=== PATIENT | female | born 1950 | race Caucasian/White ===

== ENCOUNTER 2016-03-28 12:13 | Emergency (ER) | payer MEDICARE ==
[2016-03-28 13:47] VITALS: RESP 20
[2016-03-28] MEDS ORDERED: MORPHINE SULFATE 10 MG/ML SYRINGE IM STA (14:38)
--- NOTE | 2016-03-28 14:55 | ED ---
Fall HPI - General Chief Complaint: Fall Stated Complaint: Rib Pain Time Seen by Provider: 03/28/16 14:25 Source: patient, RN notes reviewed Mode of arrival: ambulatory - History of Present Illness Initial Comments: Patient is a 66-year-old female presents to the emergency room for evaluation of fall injury. Patient states she has Parkinson's disease. Patient states occasionally her legs will give out, due to her disease. Patient states she was walking outside and her legs gave out from under her. Patient states that she fell to the ground landing on her left anterior rib area. Patient states she did "black out" for an unknown amount of time. Patient states she's not sure if she hit her head. Patient denies worsening headache, neck pain, nausea , vomiting, numbness or tingling in extremities. Patient states that after the incident she began having left anterior rib pain. Patient states pain got worse today. Patient states pain is worse whenever she takes a deep breath or coughs. Patient denies any other injuries during incident. Patient denies changes in vision, dizziness, shortness of breath. - Related Data Home Medications Medication Instructions Recorded Confirmed ALPRAZolam [Xanax] 0.25 mg PO TID 12/07/13 03/28/16 Carbidopa/Levodopa [Sinemet Cr 1 tab PO QID 12/07/13 03/28/16 25-100 mg] Citalopram Hydrobromide [CeleXA] 40 mg PO DAILY 12/07/13 03/28/16 amLODIPine [Norvasc] 10 mg PO DAILY 12/07/13 03/28/16 SUMAtriptan SUCCINATE [Imitrex] 100 mg PO DIRECTED PRN 08/10/14 03/28/16 Allergies Allergy/AdvReac Type Severity Reaction Status Date / Time hydrocodone bitartrate Allergy Rash/Hives Verified 03/28/16 15:14 [From Vicodin] Review of Systems ROS Statement: Those systems with pertinent positive or pertinent negative responses have been documented in the HPI. ROS Other: All systems not noted in ROS Statement are negative. Past Medical History Past Medical History: Hypertension Additional Past Medical History / Comment(s): 08/14/14 Pt admitted to floor s/p laparoscopic hiatal hernia repair. with lysis of adhesions and partial fundlopathy. Other HX: PARKINSONS, MIGRAINES, ASTHMA (NO MEDS), HIATAL HERNIA., STATES HX OF FALLS USES CANE AND WALKER. History of Any Multi-Drug Resistant Organisms: None Reported Past Surgical History: Cholecystectomy, Hysterectomy, Orthopedic Surgery Additional Past Surgical History / Comment(s): 08/14/14 Laparoscopic hiatal hernia repair with lysis of adhesions and partial fundlopathy, bilateral shoulder surgery, lt knee surgery and rt ankle surgery Past Anesthesia/Blood Transfusion Reactions: No Reported Reaction Past Psychological History: Anxiety, Bipolar Additional Psychological History / Comment(s): STATES SHE WEANED HERSELF OFF OF BIPOLAR MEDS 6 MONTHS AGO AND IS AWARE. Pt states she is depressed. She states she was getting mental health care but due to insurance no longer covering she quit going. She states her celexa works some. She states she does think about suicide. She states she has no plan. She does state she feels hopeless. Pt's nurse informed of this and plans to go in and assess pt further. PT's belongings checked-no contraband other than pt brought in her home medications and her nurse is aware and plans to send to pharmacy. Smoking Status: Never smoker Past Alcohol Use History: Abuse Additional Past Alcohol Use History / Comment(s): sober x 2 years Past Drug Use History: None Reported - Past Family History Father Family Medical History: Cancer Additional Family Medical History / Comment(s): lung Mother Family Medical History: Deep Vein Thrombosis (DVT) General Exam - General Exam Comments Initial Comments: Sitting in exam room in no acute distress. Limitations: no limitations General appearance: alert, in no apparent distress Head exam: Present: atraumatic, normocephalic, normal inspection Eye exam: Present: normal appearance, PERRL, EOMI Pupils: Present: normal accommodation ENT exam: Present: normal exam Neck exam: Present: normal inspection, full ROM. Absent: tenderness, lymphadenopathy Respiratory exam: Present: normal lung sounds bilaterally, chest wall tenderness (Tenderness on palpating over left anterior ribs underneath the left breast). Absent: respiratory distress Cardiovascular Exam: Present: regular rate, normal rhythm, normal heart sounds Extremities exam: Present: normal inspection, normal capillary refill Back exam: Present: normal inspection Neurological exam: Present: alert, oriented X3, CN II-XII intact Psychiatric exam: Present: normal affect, normal mood Skin exam: Present: warm, dry, intact, normal color. Absent: rash Course Vital Signs 03/28/16 03/28/16 13:44 15:57 Temperature 97.6 F 98.2 F Pulse Rate 74 86 Respiratory 20 20 Rate Blood Pressure 162/89 160/80 O2 Sat by Pulse 98 98 Oximetry Medical Decision Making - Medical Decision Making Patient is a 66-year-old female presents emergency room for evaluation of fall and left anterior rib pain. Brain CT shows no acute findings. Chest/left rib x -ray shows fractures of fourth, sixth and seventh ribs. Will send patient home with pain medications and advised her to follow-up with her primary care provider. Patient states she understands everything that was discussed with her. Return parameters discussed. Case discussed Dr. Schuler. - Radiology Data Radiology results: report reviewed, image reviewed Disposition Clinical Impression: Fall, Rib fractures Disposition: HOME SELF-CARE Condition: Good Instructions: Fall Prevention for Older Adults (ED), Rib Fracture (ED) Additional Instructions: Ice on and off for 10-15 minutes for the next 24-48 hours. Take medications as needed for pain. Please follow-up with primary care provider in 24-48 hours for reevaluation. If new symptoms develop or symptoms worsen, please return to the ER. Referrals: Akash King MD [Primary Care Provider] - 1-2 days Time of Disposition: 15:41
--- NOTE | 2016-03-28 15:00 | XR ---
EXAMINATION TYPE: XR ribs LT w pa chest xray DATE OF EXAM: 03/28/2016 2:30 PM COMPARISON: NONE HISTORY: Pain fall TECHNIQUE: Single AP chest. 2 views left RIBS FINDINGS: There is a lateral left fourth rib fracture and possible sixth and seventh anterior lateral rib fractures. Correlate with location of the patient's pain. No pneumothorax is evident. IMPRESSION: 1. Suspected fourth sixth and seventh rib fractures. Correlate with location of the patient's pain.
--- NOTE | 2016-03-28 15:02 | CT ---
EXAMINATION TYPE: CT brain wo con DATE OF EXAM: 03/28/2016 2:58 PM COMPARISON: NONE INDICATION: Pt fell yesterday and hit head. No prior. DLP: 1036.0 mGycm, Automated exposure control for dose reduction was used. CONTRAST: None CT of the brain is performed utilizing 3 mm thick sections through the posterior fossa and 3 mm thick sections through the remaining calvarium. Study is performed within 24 hours of arrival to the hosp [facility]. No abnormal hyperdensity is present to suggest an acute intracranial hemorrhage. No mass lesion is evident. No acute infarcts are evident. Ventricles and sulci are appropriate for the patient age. Paranasal sinuses and mastoid air cells within the [id number] are clear. IMPRESSIONS: 1. No acute intracranial process.
[2016-03-28] MEDS ORDERED: ACET/COD 300 MG/30 MG STARTER PACK 6 TAB BTL PO STA (15:47)
[2016-03-28 15:58] VITALS: BP 160/80; PULSE 86; TEMP 98.2
== END 2016-03-28 15:57 | disposition home or self-care (01) ==
LOC: EC 12:13
DX: S22.42XA Multiple fractures of ribs, left side, initial encounter for closed fracture (principal); I10 Essential (primary) hypertension; F41.9 Anxiety disorder, unspecified; W18.30XA Fall on same level, unspecified, initial encounter; Y93.01 Activity, walking, marching and hiking; Z79.899 Other long term (current) drug therapy; Z88.5 Allergy status to narcotic agent
CPT/HCPCS: 99284; 96372; 71101; 70450; J2270

== ENCOUNTER → 2016-07-13 | Outpatient (CLI) | payer MEDICARE ==
--- NOTE | 2016-07-17 12:35 | EM ---
24 HOUR DCG REPORT DATE OF SERVICE: AGE: 66Y SEX: F INDICATIONS: This is a 24 hour DCG report on a patient who had a lot of entries in the diary, most of these were activities. No symptoms were reported. Predominantly remained to be sinus with a heart rate ranging from 56 to 150 beats per minute with average heart rate of 81 beats per minute. Rare isolated PACs and PVCs were noted without any significant runs of SVT, VT, or bradyarrhythmia. The patient did not have any significant symptoms and mostly activities were reported. There was no evidence of any significant bradyarrhythmia. The maximum heart rate happened at 12:43 p.m. and at the time patient was doing some brisk walking to the hospital. She was also having some shortness of breath. FINAL IMPRESSION: Predominantly sinus with average heart rate of 81 beats per minute. Sinus rhythm, sinus tachycardia was noted, isolated premature ventricular contractions were noted. There was no evidence of any significant SVT, VT, or bradyarrhythmia.
== END | disposition home or self-care (01) ==
LOC: RADECHMAIN 11:50
PROVIDERS: ATTEND Family Medicine
DX: I49.3 Ventricular premature depolarization (principal)
CPT/HCPCS: 93225; 93226

== ENCOUNTER → 2017-11-12 | Outpatient (CLI) | payer MEDICARE ==
[2017-11-12 13:42] LABS: HCT 41.1 % (34.0-46.0); HGB 13.3 gm/dL (11.4-16.0); MCH 30.6 pg (25.0-35.0); MCHC 32.3 g/dL (31.0-37.0); MCV 94.9 fL (80.0-100.0); Mean Platelet Volume 7.1; Platelet Count 249 k/uL (150-450); RBC 4.33 m/uL (3.80-5.40); WBC 7.1 k/uL (3.8-10.6)
[2017-11-12 14:21] LABS: Anion Gap 7 mmol/L; Blood Urea Nitrogen 12 mg/dL (7-17); Carbon Dioxide 26 mmol/L (22-30); Chloride 107 mmol/L (98-107); Potassium 4.5 mmol/L (3.5-5.1); Sodium 140 mmol/L (137-145)
== END | disposition home or self-care (01) ==
LOC: LABPAT 13:02
PROVIDERS: ATTEND Internal Medicine Cardiovascular Disease
DX: Z01.812 Encounter for preprocedural laboratory examination (principal)
CPT/HCPCS: 36415; 80051; 82565; 84520; 85027

== ENCOUNTER 2017-11-25 07:58 | Day surgery (SDC) | payer SELFPAY ==
[2017-11-22 10:36] VITALS: BMI 36.6
[~2017-11-25 07:58] MED LIST: ALPRAZolam 0.25 MG TAB PO PRN; ASPIRIN 325 MG TAB PO ONE; SODIUM CHLORIDE 0.9% 1,000 ML in EMPTY BAG 1 BAG IV ONE
[2017-11-25 08:50] VITALS: RESP 16; TEMP 98.6
[2017-11-25] MEDS ORDERED: SODIUM CHLORIDE 0.9% 1,000 ML IV ONE (08:52)
[2017-11-25] MEDS ORDERED: MIDAZOLAM 2 MG/2 ML VIAL IVP ONE (09:10)
[2017-11-25] MEDS ORDERED: fentaNYL (PF) 50 MCG/ML 2 ML AMP IV ONE (09:10)
[2017-11-25] MEDS ORDERED: LIDOCAINE 1% INJ 10MG/ML (20 ML MDV) SQ ONE (09:12)
[2017-11-25] MEDS ORDERED: IOPAMIDOL-370 125ML BTL INJ ONE (09:28)
[2017-11-25] MEDS ORDERED: RX INFO: IV CONTRAST WAS GIVEN 1 EACH MISC MISCELLANE PRN (09:33)
[2017-11-25] MEDS ORDERED: SODIUM CHLORIDE 0.9% 1,000 ML IV SCH (09:45)
--- NOTE | 2017-11-25 09:48 | CC ---
CARDIAC CATHETERIZATION REPORT INDICATION: Chest pain with abnormal stress test. PROCEDURE NOTE: After obtaining informed consent, left heart catheterization and coronary angiogram are performed via the right femoral artery using standard Jarrell catheters. Patient tolerated the procedure well without any obvious immediate complications. Patient received moderate conscious sedation. Total sedation time was 17 minutes. FINDINGS: 1. HEMODYNAMICS: Left ventricular end-diastolic pressure is 12 to 14 mm. There is no significant gradient across the aortic valve. 2. LEFT VENTRICULOGRAM: Left ventriculogram is not performed. 3. ANGIOGRAPHIC DATA: 4. Left main coronary artery: Left main coronary artery is a normal-sized vessel and is free of stenosis. Divides into left anterior descending coronary artery and circumflex coronary artery. LAD and its branches circumflex coronary artery and its branches are free of significant stenosis. LAD shows an irregular ectatic area in its proximal part suggestive of an ulcerated plaque. Right coronary artery is a large dominant vessel and is free of significant stenosis. CONCLUSIONS: 1. Mild coronary artery disease in the form of irregular ectatic plaque in the proximal left anterior descending artery. 2. False-positive stress test. 3. The patient's management is going to be in the form of risk factor modification and optimal medical therapy. 4. The patient had a femoral angiogram and Angio-Seal was deployed for hemostasis. MMODL / IJN: [id number] /
[2017-11-25] MEDS ORDERED: ACETAMINOPHEN TAB 325 MG TAB PO PRN (12:17)
[2017-11-25 14:36] VITALS: BP 130/73; PULSE 56
== END 2017-11-25 14:40 | disposition home or self-care (01) ==
LOC: CATHCVL 07:58
PROVIDERS: ATTEND Internal Medicine Cardiovascular Disease
DX: I25.10 Atherosclerotic heart disease of native coronary artery without angina pectoris (principal); R94.31 Abnormal electrocardiogram [ECG] [EKG]; R94.39 Abnormal result of other cardiovascular function study; I10 Essential (primary) hypertension; E78.5 Hyperlipidemia, unspecified; Z72.0 Tobacco use; Z79.82 Long term (current) use of aspirin; Z79.899 Other long term (current) drug therapy; Z88.6 Allergy status to analgesic agent; Z88.5 Allergy status to narcotic agent
CPT/HCPCS: 93458; C1760; C1894; C1769; J2250; J2001; J3010; Q9967

== ENCOUNTER → 2017-12-29 | Outpatient (CLI) | payer SELFPAY ==
[2017-12-29 13:44] LABS: Basophils # (A) 0.1 k/uL (0-0.2); Basophils % (A) 1 %; Eosinophils # (A) 0.2 k/uL (0-0.7); Eosinophils % (A) 3 %; HCT 42.8 % (34.0-46.0); HGB 13.6 gm/dL (11.4-16.0); Lymphocytes # (A) 1.9 k/uL (1.0-4.8); Lymphocytes % (A) 28 %; MCH 30.2 pg (25.0-35.0); MCHC 31.8 g/dL (31.0-37.0); Mean Platelet Volume 7.3; Monocytes # (A) 0.4 k/uL (0-1.0); Monocytes % (A) 5 %; Neutrophils # (A) 4.1 k/uL (1.3-7.7); Neutrophils % (A) 61 %; Platelet Count 300 k/uL (150-450); RDW 13.2 % (11.5-15.5); WBC 6.7 k/uL (3.8-10.6)
[2017-12-29 13:51] LABS: Appearance,Urine Cloudy (Clear); Bacteria,Urine Many /hpf; Bilirubin,Urine Negative (Negative); Blood,Urine Negative (Negative); Color,Urine Yellow; Glucose,Urine (UA) Negative (Negative); Ketones,Urine Negative (Negative); Leukocyte Esterase,Urine Large (Negative); Mucus,Urine Occasional /hpf; Nitrite,Urine Positive (Negative); Protein,Urine Negative (Negative); RBC,Urine 4 /hpf (0-5); Specific Gravity,Urine 1.012 (1.001-1.035); Squamous Epithelial Cell,Urine 2 /hpf (0-4); Urobilinogen,Urine <2.0 mg/dL (<2.0); WBC,Urine 118 /hpf (0-5)
[2017-12-29 14:05] LABS: Anion Gap 7 mmol/L; Blood Urea Nitrogen 12 mg/dL (7-17); Carbon Dioxide 24 mmol/L (22-30); Chloride 109 mmol/L (98-107); Glucose 97 mg/dL (74-99); Potassium 4.2 mmol/L (3.5-5.1); Sodium 140 mmol/L (137-145)
== END | disposition home or self-care (01) ==
LOC: LABPAT 13:01
PROVIDERS: ATTEND Urology
DX: Z01.818 Encounter for other preprocedural examination (principal); Z01.812 Encounter for preprocedural laboratory examination; N39.3 Stress incontinence (female) (male); I10 Essential (primary) hypertension
CPT/HCPCS: 36415; 80048; 81001; 85025; 87077; 87086; 87186; 93005

== ENCOUNTER 2018-01-05 07:20 | Day surgery (SDC) | payer MEDICARE, OTHER ==
[2017-12-30 10:13] VITALS: BMI 36.1
--- NOTE | 2018-01-04 10:51 | P.GSHP ---
History of Present Illness H&P Date: 01/04/[address] King for mixed incontinence with a prominent michoacano component She failed kegal exercises Uds showed a relatively normal bladder Her LPP was 150 cm h20 She comes for a TOT THE mesh controversy was discussed tHe risks and complications including infection , bleeding, pain, erosion, dyspareunia, injury to the adjacent organs,failure have been explained understood and accepted. - Constitutional Constitutional: Reports chronic headaches, Reports lethargy - EENT Ears, nose, mouth and throat: Reports headache - Genitourinary (Female) Genitourinary: Reports as per HPI Past Medical History Past Medical History: Asthma, Hypertension Additional Past Medical History / Comment(s): Other HX: PARKINSONS, MIGRAINES, HIATAL HERNIA, STATES HX OF FALLS USES CANE AND WALKER. History of Any Multi-Drug Resistant Organisms: None Reported Past Surgical History: Cholecystectomy, Heart Catheterization, Hysterectomy, Orthopedic Surgery Additional Past Surgical History / Comment(s): [facility] Nov 2017,08/14/14 Laparoscopic hiatal hernia repair with lysis of adhesions and partial fundlopathy, bilateral shoulder surgery, lt knee surgery and rt ankle surgery Past Anesthesia/Blood Transfusion Reactions: No Reported Reaction Smoking Status: Never smoker - Past Family History Father Family Medical History: Cancer Additional Family Medical History / Comment(s): lung Mother Family Medical History: Deep Vein Thrombosis (DVT) Additional Family Medical History / Comment(s): Crohns Medications and Allergies Home Medications Medication Instructions Recorded Confirmed Type ALPRAZolam [Xanax] 0.5 mg PO TID 12/07/13 12/30/17 History Carbidopa/Levodopa [Sinemet Cr 1 tab PO QID 12/07/13 12/30/17 History 25-100 mg] Citalopram Hydrobromide [CeleXA] 40 mg PO QAM 12/07/13 12/30/17 History Aspirin [Adult Low Dose Aspirin EC] 81 mg PO DAILY 11/22/17 12/30/17 History Nitroglycerin Sl Tabs [Nitrostat] 0.4 mg SUBLINGUAL Q5M PRN 11/22/17 12/30/17 History Verapamil [Isoptin] 80 mg PO TID 11/22/17 12/30/17 History Allergies Allergy/AdvReac Type Severity Reaction Status Date / Time hydrocodone bitartrate AdvReac Nausea & Verified 12/30/17 10:02 [From Vicodin] Vomiting Surgical - Exam - General well developed, well nourished, no distress - Eyes PERRL - ENT decreased hearing - Neck no masses, trachea midline - Respiratory normal expansion, normal respiratory effort - Cardiovascular Rhythm: regular - Abdomen Abdomen: soft, non tender - Genitourinary positive michoacano, positive ethan test. - Integumentary no rash, no growths - Neurologic normal coordination, normal sensation - Musculoskeletal normal gait, normal posture - Psychiatric oriented to person, oriented to place, speech is normal, memory intact Assessment and Plan Assessment: Impression: Mixed incontinence with a prominent michoacano component Plan: TOT
[~2018-01-05 07:20] MED LIST changes: -ALPRAZolam 0.25 MG TAB PO PRN; -ASPIRIN 325 MG TAB PO ONE; +DEXAMETHASONE SOD PHOSPHATE 10 MG/ML 1 ML VIAL IV ONE; +ONDANSETRON 4 MG/2 ML VIAL IVP ONE; +SCOPOLAMINE 1.5MG/72HR PATCH TRANSDERM ONE; -SODIUM CHLORIDE 0.9% 1,000 ML in EMPTY BAG 1 BAG IV ONE; +ceFAZolin 1,000 MG in EMPTY BAG 1 BAG IVPB ONE
[2018-01-05] MEDS ORDERED: LIDOCAINE 1% 20 ML VIAL (10MG/ML) FOR IV START INTRADERMA ONE (08:07)
[2018-01-05] MEDS: LACTATED RINGERS 1,000 ML IV SCH (08:08)
[2018-01-05] MEDS ORDERED: MIDAZOLAM 2 MG/2 ML VIAL IV ONE (08:38)
[2018-01-05] MEDS ORDERED: MIDAZOLAM 2 MG/2 ML VIAL ONE (08:46)
[2018-01-05] MEDS ORDERED: ePHEDrine SULFATE/0.9% NACL/PF 50 MG/5 ML SYRINGE IV ONE (08:46)
[2018-01-05] MEDS ORDERED: fentaNYL (PF) 50 MCG/ML 2 ML AMP ONE (08:46)
[2018-01-05] MEDS ORDERED: LIDOCAINE 1% INJ 10MG/ML (20 ML MDV) ONE (08:46)
[2018-01-05] MEDS ORDERED: SUCCINYLCHOLINE CHLORIDE 100 MG/5 ML SYR IV ONE (08:46)
[2018-01-05] MEDS ORDERED: PROPOFOL 10 MG/ML 20 ML VIAL IV ONE (08:46)
[2018-01-05] MEDS ORDERED: VASOPRESSIN 20 UNIT/ML 1 ML VIAL SQ ONE (09:11)
[2018-01-05] MEDS ORDERED: GENTAMICIN IN NACL ISO-OSM PMX 80 MG/100 ML BAG IV ONE (09:11)
[2018-01-05] MEDS ORDERED: BACITRACIN 500 UNIT/GM OINT 28.4 GM TUBE TOPICAL ONE (09:12)
[2018-01-05] MEDS ORDERED: NITROGLYCERIN SL TABS 0.4 MG TAB SUBLINGUAL PRN (09:34)
[2018-01-05] MEDS ORDERED: ONDANSETRON 4 MG/2 ML VIAL IVP PRN (09:34)
--- NOTE | 2018-01-05 09:39 | P.OP ---
Date of Procedure: 01/05/18 Preoperative Diagnosis: Stress urine incontinence Postoperative Diagnosis: Same Procedure(s) Performed: Trans-obturator tape with cystoscopy Anesthesia: MILENA Surgeon: Angel Orosco Estimated Blood Loss (ml): 25 Pathology: none sent Condition: stable Disposition: PACU Indications for Procedure: The patient is 67. She has mixed incontinence with a prominent stress component. She comes for a trans-obturator tape Description of Procedure: The patient is brought to the operating suite. She is given a general endotracheal anesthesia. She's placed in lithotomy position with a sterile prep and drape. A Valdovinos catheter is introduced sterilely. The labia are sewn laterally with 2-0 silk. A vaginal speculum is placed into the vagina. The anterior vaginal mucosa was elevated off the submucosa with a mixture of 20 units of Pitressin and 200 mL of saline. I make a midline suburethral incision dissect lateral to the bladder neck bilaterally. 2 incisions in the inguinal crease are made at the level clitoris. The trans-obturator tape introducers were passed through the inguinal incisions through the obturator foramen into the issue into the vaginal space bilaterally making sure not to damage the bladder or vagina. Cystoscopy with a Foroblique lens and 19-Chinese sheath is performed to make sure there is no bladder injury and there is none. I attached the graft to the introducers and pull the ends of the graft back through the obturator foramen in the inguinal incisions. The graft lay in the mid urethra nicely. The redundant achieving is removed. The vaginal mucosa was closed with 3-0 Vicryl. The redundant graft at the inguinal incisions excised. The angle incisions are closed with 4-0 Vicryl. A vaginal packing is placed. The labial stitches are removed. The catheter remains in place in the urine is clear. The patient is awakened and returned recovery room good condition. Blood loss is approximately 25 mL.
[2018-01-05] MEDS: HYDROmorphone 1 MG/ML 1 ML SYRINGE IVP PRN ×6 (10:04→11:37)
[2018-01-05] MEDS ORDERED: NITROGLYCERIN SL TABS 0.4 MG TAB SUBLINGUAL ONE (10:25)
[2018-01-05] MEDS: KETOROLAC 30 MG/ML 1 ML VIAL IVP PRN ×2 (11:18→17:26)
[2018-01-05] MEDS: DEXTROSE 5%-0.45% NACL 1,000 ML IV SCH ×2 (12:36→12:53)
[2018-01-05] MEDS: ATORVASTATIN 20 MG TAB PO SCH (12:52)
[2018-01-05] MEDS: ISOSORBIDE MONONITRATE ER 30 MG TAB.ER.24H PO SCH (12:52)
[2018-01-05] MEDS: CARBIDOPA-LEVODOPA ER 25-100MG 1 EACH TABLET.ER PO SCH ×3 (13:17→20:40)
[2018-01-05] MEDS: VERAPAMIL 80 MG TAB PO SCH (15:37)
[2018-01-05] MEDS: ALPRAZolam 0.5 MG TAB PO SCH ×2 (15:37→20:40)
--- NOTE | 2018-01-05 15:38 | CC ---
CARDIAC CATHETERIZATION REPORT Mrs. Lucia is a 67-year-old female with known history of hypertension who was underwent transobturator tape with cystoscopy and post surgery had chest discomfort. Cardiology consultation was requested. Patient follows by Dr. Calvin on a regular basis, underwent cardiac catheterization on November 25, 2017 that revealed no evidence of obstructive coronary artery disease. She has complained of some discomfort on and off, not all with exertion pattern and she has chronic dyspnea on exertion. She has occasional peripheral edema and palpitation. No syncope. No clear PND nor orthopnea. On her cardiac catheterization, there was mild irregularity with ectatic area in the proximal segment. Otherwise, no evidence of significant obstructive disease. MEDICATION: At home included verapamil 80 mg t.i.d., Celexa, Sinemet, and aspirin. REVIEW OF SYSTEMS: RESPIRATORY SYSTEM: She has no documented history of asthma, emphysema. No recent wheezing. GI SYSTEM: No recent GI bleed. No peptic ulcer disease. SYSTEM: No recent hematuria. NERVOUS SYSTEM: No history of stroke or seizure. PHYSICAL EXAMINATION: A 67-year-old female, alert, oriented, in no apparent distress. Blood pressure 133/70 with a heart rate in the 70s. HEAD: Normocephalic, eyes sclerae nonicteric, noted. NECK: Good upstroke, no jugular venous distention. LUNGS: Clear to auscultation. HEART: Regular rate and rhythm. S1, S2. No S3 with systolic ejection murmur, 2/6 heard at the base. No diastolic murmur, no rub. ABDOMEN: Soft, nontender. Positive bowel sounds, no organomegaly. EXTREMITIES: No edema, intact pulses. LAB DATA: EKG revealed sinus mechanism, normal axis, intervals, normal electrocardiogram. IMPRESSION: 1. Status post transobturator tape and cystoscopy. 2. Chest discomfort, has atypical features for ischemic heart disease. Doubt vasospastic disease. 3. Mild plaque by cardiac catheterization done on November 25. 4. History of hypertension. 5. Hyperlipidemia, not treated. RECOMMENDATION: For the possibility that she may have vasospastic disease, I will add isosorbide mononitrate to her regimen. I will also add to her regimen statin and I have discussed with her the importance of taking statin. Otherwise, will continue clinical observation. From the cardiac standpoint, she is stable. She can be followed as an outpatient by Dr. Calvin. Thank you for this consult. Will follow with you. MMODL / IJN: [id number] /
[2018-01-06] MEDS: KETOROLAC 30 MG/ML 1 ML VIAL IVP PRN ×3 (00:14→13:27)
[2018-01-06] MEDS: DEXTROSE 5%-0.45% NACL 1,000 ML IV SCH (00:19)
[2018-01-06] MEDS: VERAPAMIL 80 MG TAB PO SCH ×2 (00:19→10:04)
[2018-01-06 01:27] VITALS: RESP 16
[2018-01-06] MEDS: LACTATED RINGERS 1,000 ML IV SCH (06:16)
[2018-01-06] MEDS ORDERED: CITALOPRAM HYDROBROMIDE 20 MG TAB PO SCH (09:00)
[2018-01-06] MEDS: CARBIDOPA-LEVODOPA ER 25-100MG 1 EACH TABLET.ER PO SCH ×3 (10:11→19:04)
[2018-01-06] MEDS: ISOSORBIDE MONONITRATE ER 30 MG TAB.ER.24H PO SCH (10:12)
[2018-01-06] MEDS: VERAPAMIL 40 MG TAB PO SCH ×2 (10:12→16:36)
[2018-01-06] MEDS: ALPRAZolam 0.5 MG TAB PO SCH ×2 (10:12→16:36)
[2018-01-06] MEDS: ATORVASTATIN 20 MG TAB PO SCH (10:12)
--- NOTE | 2018-01-06 11:50 | P.DS ---
Providers Attending physician: Angel Orosco Consults: 01/05/18 10:34 Consult Physician Stat Consulting Provider: Mary Del Toro Consult Reason/Comments: CHEST PAIN, 1 WEEK POST HEART CATH Do you want consulting provider notified?: Yes Primary care physician: Akash Woodruff [facility] Course: The patient was admitted to the hospital 01/05/2018 for a trans-obturator tape for stress incontinence. She underwent this uneventfully. Her postoperative pain was minimal. The catheter will come packing will be removed this morning. If she voids adequately she'll be discharged home. Postoperative instructions of been given. Her condition is good. She'll follow-up in the office in one week. She has been given a small prescription of [place]. Plan - Discharge Summary New Discharge Prescriptions: New HYDROcodone/APAP 5-325MG [[place] 5-325] 1 tab PO Q4HR PRN #14 tab PRN Reason: Pain Control No Action Citalopram Hydrobromide [CeleXA] 40 mg PO QAM ALPRAZolam [Xanax] 0.5 mg PO TID Carbidopa/Levodopa [Sinemet Cr 25-100 mg] 1 tab PO QID Nitroglycerin Sl Tabs [Nitrostat] 0.4 mg SUBLINGUAL Q5M PRN PRN Reason: Chest Pain Verapamil [Isoptin] 80 mg PO TID Aspirin [Adult Low Dose Aspirin EC] 81 mg PO DAILY Discharge Medication List ALPRAZolam [Xanax] 0.5 mg PO TID 12/07/13 [History] Carbidopa/Levodopa [Sinemet Cr 25-100 mg] 1 tab PO QID 12/07/13 [History] Citalopram Hydrobromide [CeleXA] 40 mg PO QAM 12/07/13 [History] Aspirin [Adult Low Dose Aspirin EC] 81 mg PO DAILY 11/22/17 [History] Nitroglycerin Sl Tabs [Nitrostat] 0.4 mg SUBLINGUAL Q5M PRN 11/22/17 [History] Verapamil [Isoptin] 80 mg PO TID 11/22/17 [History] HYDROcodone/APAP 5-325MG [[place] 5-325] 1 tab PO Q4HR PRN #14 tab 01/06/18 [Rx] Follow up Appointment(s)/Referral(s): Angel Orosco MD [STAFF PHYSICIAN] - 1 Week Discharge Disposition: HOME SELF-CARE
[2018-01-06 15:20] VITALS: BP 110/60; PULSE 62; TEMP 98.2
--- NOTE | 2018-01-06 16:54 | PN ---
PROGRESS NOTE FOLLOW-UP NOTE: This patient is a 67-year-old lady who was admitted to hospital following urological surgery and had an episode of chest pain. Patient is doing well this morning and is free of symptoms. She had a recent cardiac catheterization that showed normal coronary arteries. On exam, comfortable at rest. Vital signs are stable. Chest exam reveals good air entry bilaterally. Heart exam reveals first and second heart sounds. No gallop. Examination of extremities did not reveal any edema. ASSESSMENT: Chest pain, atypical, probably noncardiac, resolved. No further cardiac workup at this time in this lady who had cardiac catheterization within the last one month that did not reveal significant obstructive CAD. MMODL / IJN: [id number] /
== END 2018-01-06 19:16 | disposition home or self-care (01) ==
LOC: OR 07:20 → 6PED 09:34 → 4SSUR 12:28 → OR 01-06 19:16
PROVIDERS: ATTEND Urology
DX: N39.46 Mixed incontinence (principal); R07.9 Chest pain, unspecified; I10 Essential (primary) hypertension; E78.5 Hyperlipidemia, unspecified; J45.909 Unspecified asthma, uncomplicated; G20 Parkinson's disease; F32.9 Major depressive disorder, single episode, unspecified; F41.9 Anxiety disorder, unspecified; Z79.82 Long term (current) use of aspirin; Z79.899 Other long term (current) drug therapy; Z88.5 Allergy status to narcotic agent
CPT/HCPCS: 93005; 57288; C1771; J1580; J2250; J1100; J2405; J2001; J3010; J1885 ×2; J1170; J0690; J0330; J2704

== ENCOUNTER → 2018-11-30 | Outpatient (CLI) | payer MEDICARE ==
--- NOTE | 2018-11-30 15:52 | NM ---
EXAMINATION TYPE: NM DatScan Brain SPECT DATE OF EXAM: 11/30/2018 COMPARISON: NONE HISTORY: Tremors TECHNIQUE: 10 drops of Lugol's solution was administered 1 hour prior to injection as a thyroid bloc jesús agent. After the administration of 4.6 mCi I-123 Ioflupane DaTscan. Images obtained [address] injection. SPECT images of the brain were acquired with axial and coronal reconstructions. FINDINGS: The axial SPECT images demonstrate normal background activity. Accounting for head tilt, t here appears to be slight asymmetrically blunted comma-shaped appearance of the right corpus striatum . IMPRESSION: Slightly blunted striatal activity on the right may indicate early changes of idiopathic Parkinson's disease or Parkinsonian syndrome.
== END | disposition home or self-care (01) ==
LOC: RADNMMAIN 10:40
PROVIDERS: ATTEND Psychiatry & Neurology Neurology
DX: G25.0 Essential tremor (principal)
CPT/HCPCS: 78607; A9584

== ENCOUNTER → 2019-03-03 | Outpatient (CLI) | payer MEDICARE ==
--- NOTE | 2019-03-03 13:16 | CT ---
EXAMINATION TYPE: CT chest wo con DATE OF EXAM: 03/03/2019 COMPARISON: None HISTORY: Cough, chest pain with breathing x4 months CT DLP: 455.[address] of the chest was performed with lung and mediastinal window settings submitted. The la ck of contrast limits evaluation of the vascular, mediastinal and parenchymal structures including th e upper abdomen. LUNGS: The lungs are clear and free of infiltrate. No atelectasis. No pulmonary nodule or mass is de tected. No pleural effusion. No CT evidence of interstitial lung disease. MEDIASTINUM/ARELY: Thoracic aorta is of normal caliber with limited evaluation given lack of contrast . The heart is mildly enlarged. There is a pericardial effusion measuring 1.1 cm in greatest thickne ss. No evidence for mediastinal mass. No lymph nodes greater than 1cm. UPPER ABDOMEN: No significant abnormality is seen. OTHER: No significant other abnormality. IMPRESSION: 1. No evidence for infiltrate, nodule or mass. 2. Pericardial effusion with mild cardiomegaly. 1.
== END | disposition home or self-care (01) ==
LOC: RADCTMAIN 12:23
PROVIDERS: ATTEND Internal Medicine Pulmonary Disease
DX: I51.7 Cardiomegaly (principal); J45.909 Unspecified asthma, uncomplicated
CPT/HCPCS: 71250

== ENCOUNTER → 2019-08-25 | Outpatient (CLI) | payer MEDICARE ==
[2019-08-25 12:03] LABS: Basophils # (A) 0.1 k/uL (0-0.2); Basophils % (A) 1 %; Eosinophils # (A) 0.2 k/uL (0-0.7); Eosinophils % (A) 2 %; HGB 14.3 gm/dL (11.4-16.0); Lymphocytes # (A) 3.3 k/uL (1.0-4.8); Lymphocytes % (A) 33 %; MCH 30.4 pg (25.0-35.0); MCHC 31.8 g/dL (31.0-37.0); MCV 95.7 fL (80.0-100.0); Mean Platelet Volume 8.1; Monocytes # (A) 0.6 k/uL (0-1.0); Monocytes % (A) 6 %; Neutrophils # (A) 5.6 k/uL (1.3-7.7); Neutrophils % (A) 57 %; Platelet Count 274 k/uL (150-450); RDW 12.9 % (11.5-15.5); WBC 9.9 k/uL (3.8-10.6)
[2019-08-25 16:28] LABS: ALT 15 U/L (8-44); AST 15 U/L (13-35); African American GFR (CKD) 88.4 (60.0-200.0); Albumin/Globulin Ratio 1.39 (1.60-3.17); Alkaline Phosphatase 73 U/L (41-126); C Reactive Protein <0.4 mg/dL (0.0-0.8); Calcium 8.4 mg/dL (8.7-10.3); Carbon Dioxide 25.9 mmol/L (21.6-31.8); Chloride 108 mmol/L (96-109); Globulin 2.8 g/dL (1.6-3.3); Glucose 91 mg/dL (70-110); Non-African American GFR(CKD) 76.3 (60.0-200.0); Potassium 3.6 mmol/L (3.5-5.5); Sodium 142 mmol/L (135-145); Total Bilirubin 0.4 mg/dL (0.3-1.2); Total Protein 6.7 g/dL (6.2-8.2)
== END | disposition home or self-care (01) ==
LOC: LABWHC1 11:00
PROVIDERS: ATTEND Family Medicine
DX: G35 Multiple sclerosis (principal); G62.9 Polyneuropathy, unspecified
CPT/HCPCS: 36415; 80053; 85025; 86140

== ENCOUNTER 2019-11-18 13:27 | Emergency (ER) | payer MEDICARE ==
[2019-11-18 13:51] VITALS: BP 153/98; PULSE 75; RESP 16; TEMP 98.5
[2019-11-18] MEDS ORDERED: KETOROLAC 15 MG/ML 1 ML VIAL IM STA (14:11)
--- NOTE | 2019-11-18 14:14 | ED ---
General Adult HPI - General Chief complaint: Extremity Injury, Lower Stated complaint: Fall -Knee Injury Time Seen by Provider: 11/18/19 13:57 Source: patient, RN notes reviewed Mode of arrival: wheelchair Limitations: no limitations - History of Present Illness Initial comments: 69-year-old female with a past medical history of hypertension presents to the emergency room for a chief complaint of right knee pain. Patient reports that she was walking up some stairs about a week and a half ago when the stair broke and she fell on her right knee. States has been painful since that time. States it has hurt to ambulate on the knee but she has been able to do so with her cane. She has not followed up with her doctor for this. Patient denies any fevers or chills.Patient has no other complaints at this time including shortness of breath, chest pain, abdominal pain, nausea or vomiting, headache, or visual changes. - Related Data Home Medications Medication Instructions Recorded Confirmed ALPRAZolam [Xanax] 0.5 mg PO TID 12/07/13 01/05/18 Carbidopa/Levodopa [Sinemet Cr 1 tab PO QID 12/07/13 01/05/18 25-100 mg] Citalopram Hydrobromide [CeleXA] 40 mg PO QAM 12/07/13 01/05/18 Aspirin [Adult Low Dose Aspirin EC] 81 mg PO DAILY 11/22/17 01/05/18 Nitroglycerin Sl Tabs [Nitrostat] 0.4 mg SUBLINGUAL Q5M PRN 11/22/17 01/05/18 Verapamil [Isoptin] 80 mg PO TID 11/22/17 01/05/18 Previous Rx's Medication Instructions Recorded HYDROcodone/APAP 5-325MG [Leland 1 tab PO Q4HR PRN #14 tab 01/06/18 5-325] Allergies Allergy/AdvReac Type Severity Reaction Status Date / Time hydrocodone bitartrate AdvReac Nausea & Verified 11/18/19 13:51 [From Vicodin] Vomiting Review of Systems ROS Statement: Those systems with pertinent positive or pertinent negative responses have been documented in the HPI. ROS Other: All systems not noted in ROS Statement are negative. Past Medical History Past Medical History: Hypertension Additional Past Medical History / Comment(s): 08/14/14 Pt admitted to floor s/p laparoscopic hiatal hernia repair. with lysis of adhesions and partial fundlopathy. Other HX: PARKINSONS, MIGRAINES, ASTHMA (NO MEDS), HIATAL HERNIA., STATES HX OF FALLS USES CANE AND WALKER. 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 History of Any Multi-Drug Resistant Organisms: None Reported Past Surgical History: Cholecystectomy, Hysterectomy, Orthopedic Surgery Additional Past Surgical History / Comment(s): 08/14/14 Laparoscopic hiatal hernia repair with lysis of adhesions and partial fundlopathy, bilateral shoulder surgery, lt knee surgery and rt ankle surgery Past Anesthesia/Blood Transfusion Reactions: No Reported Reaction Past Psychological History: Anxiety, Bipolar Smoking Status: Former smoker Past Alcohol Use History: Abuse - Past Family History Father Family Medical History: Cancer Additional Family Medical History / Comment(s): lung Mother Family Medical History: Deep Vein Thrombosis (DVT) Additional Family Medical History / Comment(s): Crohns General Exam Limitations: no limitations General appearance: alert, in no apparent distress Head exam: Present: atraumatic, normocephalic, normal inspection Eye exam: Present: normal appearance, PERRL, EOMI. Absent: scleral icterus, conjunctival injection, periorbital swelling ENT exam: Present: normal exam, mucous membranes moist Neck exam: Present: normal inspection, full ROM. Absent: tenderness, meningismus, lymphadenopathy Respiratory exam: Present: normal lung sounds bilaterally. Absent: respiratory distress, wheezes, rales, rhonchi, stridor Cardiovascular Exam: Present: regular rate, normal rhythm, normal heart sounds. Absent: systolic murmur, diastolic murmur, rubs, gallop, clicks GI/Abdominal exam: Present: soft, normal bowel sounds. Absent: distended, tenderness, guarding, rebound, rigid Extremities exam: Present: tenderness (Generalized tenderness to the anterior aspect of the right knee. No posterior right knee tenderness.), normal capillary refill (Capillary refill less than 2 seconds, DP pulse 2+ in the right lower extremity.), other (Sensation intact right lower extremity). Absent: full ROM (Patient is about 45 flexion of the right knee with full extension.), joint swelling, calf tenderness (No calf tenderness edema or erythema noted. Negative Homans sign.) Course Vital Signs 11/18/19 13:49 Temperature 98.5 F Pulse Rate 75 Respiratory 16 Rate Blood Pressure 153/98 O2 Sat by Pulse 98 Oximetry Medical Decision Making - Medical Decision Making HPI physical exam as documented. There is no evidence of knee joint infection. There is no erythema or fever. X-ray of the right knee is negative. No fracture. Negative for joint effusion. Juan F wrap was applied. Rest ice and elevate. I do not think patient has a good candidate for crutches as this would increase risk of falls. She will continue to use her cane. She will follow up with orthopedics, referral given. Also discussed that she can follow-up with her doctor because she is unsure if she wants to see orthopedics. She will return here for any worsening symptoms or fevers which were discussed with her. Disposition Clinical Impression: Knee pain, right Disposition: HOME SELF-CARE Condition: Good Instructions (If sedation given, give patient instructions): Knee Pain (ED) Additional Instructions: Please take Motrin and Tylenol for pain. If pain is severe take Tylenol [address] operate machinery while taking this. Rest ice and elevate the right knee. Use Juan F wrap as needed. Follow-up with orthopedics in one to 2 days. Return to the emergency room for any worsening symptoms. Is patient prescribed a controlled substance at d/c from ED?: No Referrals: Akash King MD [Primary Care Provider] - 1-2 days Time of Disposition: 14:50
--- NOTE | 2019-11-18 14:44 | XR ---
EXAMINATION TYPE: XR knee 4V RT DATE OF EXAM: 11/18/2019 COMPARISON: NONE HISTORY: Fall. Pain. TECHNIQUE: 4 views FINDINGS: I see no fracture nor dislocation. Joint spaces are normal. There is no sign of knee joint effusion. IMPRESSION: Negative right knee exam.
[2019-11-18] MEDS ORDERED: ACET/COD 300 MG/30 MG STARTER PACK 6 TAB BTL PO STA (15:16)
== END 2019-11-18 15:19 | disposition home or self-care (01) ==
LOC: EC 13:27
DX: M25.561 Pain in right knee (principal); F41.9 Anxiety disorder, unspecified; G20 Parkinson's disease; F31.9 Bipolar disorder, unspecified; I10 Essential (primary) hypertension; Z79.82 Long term (current) use of aspirin; Z79.899 Other long term (current) drug therapy; Z88.5 Allergy status to narcotic agent; Z87.891 Personal history of nicotine dependence; Z98.890 Other specified postprocedural states; W10.9XXA Fall (on) (from) unspecified stairs and steps, initial encounter
CPT/HCPCS: 73564; 99283; 96372; J1885

== ENCOUNTER 2020-06-03 15:06 | Emergency (ER) | payer MEDICARE ==
[2020-06-03 16:20] VITALS: TEMP 98
[2020-06-03] MEDS ORDERED: KETOROLAC 15 MG/ML 1 ML VIAL IM STA (16:22)
--- NOTE | 2020-06-03 16:24 | ED ---
Lower Extremity Injury HPI - General Chief Complaint: Extremity Injury, Lower Stated Complaint: Fall Time Seen by Provider: 06/03/20 16:21 Source: patient, RN notes reviewed Mode of arrival: ambulatory Limitations: no limitations - History of Present Illness Initial Comments: Patient is a 70-year-old female that presents to the emergency department with right lower extremity pain. She noted that she was getting into the bus when she slipped and hit her right matthew on the step. She states that the pain currently is an 8 out of 10 unrelieved with any medication or at home therapy. Upon inspection there was a bruise in the lower matthew area. Patient states that she can still move her foot has no numbness tingling weakness decreased range of motion chest pain shortness breath headache nausea vomiting diarrhea constipation fever fatigue chills - Related Data Home Medications Medication Instructions Recorded Confirmed Citalopram Hydrobromide [CeleXA] 40 mg PO DAILY 12/07/13 06/03/20 Aspirin [Adult Low Dose Aspirin EC] 81 mg PO DAILY 11/22/17 06/03/20 Nitroglycerin Sl Tabs [Nitrostat] 0.4 mg SUBLINGUAL Q5M PRN 11/22/17 06/03/20 ALPRAZolam [Xanax] 1 mg PO BID PRN 06/03/20 06/03/20 Gabapentin [Neurontin] 300 mg PO TID 06/03/20 06/03/20 Levothyroxine Sodium 25 mcg PO DAILY 06/03/20 06/03/20 Meclizine HCl 25 mg PO BID PRN 06/03/20 06/03/20 Montelukast Sodium [Singulair] 10 mg PO HS 06/03/20 06/03/20 Naproxen 500 mg PO BID PRN 06/03/20 06/03/20 Verapamil HCl [Verapamil ER] 180 mg PO DAILY 06/03/20 06/03/20 traZODone HCL 100 mg PO HS 06/03/20 06/03/20 Allergies Allergy/AdvReac Type Severity Reaction Status Date / Time hydrocodone bitartrate AdvReac Nausea & Verified 06/03/20 17:54 [From Vicodin] Vomiting Review of Systems ROS Statement: Those systems with pertinent positive or pertinent negative responses have been documented in the HPI. ROS Other: All systems not noted in ROS Statement are negative. Past Medical History Past Medical History: Hypertension Additional Past Medical History / Comment(s): 08/14/14 Pt admitted to floor s/p laparoscopic hiatal hernia repair. with lysis of adhesions and partial fundlopathy. Other HX: PARKINSONS, MIGRAINES, ASTHMA (NO MEDS), HIATAL HERNIA., STATES HX OF FALLS USES CANE AND WALKER. 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 History of Any Multi-Drug Resistant Organisms: None Reported Past Surgical History: Cholecystectomy, Hysterectomy, Orthopedic Surgery Additional Past Surgical History / Comment(s): 08/14/14 Laparoscopic hiatal hernia repair with lysis of adhesions and partial fundlopathy, bilateral shoulder surgery, lt knee surgery and rt ankle surgery Past Anesthesia/Blood Transfusion Reactions: No Reported Reaction Past Psychological History: Anxiety, Bipolar Smoking Status: Former smoker Past Alcohol Use History: Abuse - Past Family History Father Family Medical History: Cancer Additional Family Medical History / Comment(s): lung Mother Family Medical History: Deep Vein Thrombosis (DVT) Additional Family Medical History / Comment(s): Crohns General Exam Limitations: no limitations General appearance: alert, in no apparent distress, obese Head exam: Present: atraumatic, normocephalic, normal inspection Eye exam: Present: normal appearance, PERRL, EOMI. Absent: scleral icterus, conjunctival injection, periorbital swelling Neck exam: Present: normal inspection. Absent: tenderness, meningismus, lymphadenopathy Respiratory exam: Present: normal lung sounds bilaterally. Absent: respiratory distress, wheezes, rales, rhonchi, stridor Cardiovascular Exam: Present: regular rate, normal rhythm, normal heart sounds. Absent: systolic murmur, diastolic murmur, rubs, gallop, clicks GI/Abdominal exam: Present: soft, normal bowel sounds. Absent: distended, tenderness, guarding, rebound, rigid Extremities exam: Present: normal inspection, full ROM, tenderness (Right matthew on the distal aspect), normal capillary refill. Absent: pedal edema, joint swelling, calf tenderness Neurological exam: Present: alert, oriented X3, CN II-XII intact Psychiatric exam: Present: normal affect, normal mood Skin exam: Present: warm, dry, intact, normal color, other (Fresh bruise to right matthew mild tenderness to palpation.). Absent: rash Course Vital Signs 06/03/20 16:17 Temperature 98 F Pulse Rate 74 Respiratory 18 Rate Blood Pressure 180/129 O2 Sat by Pulse 98 Oximetry Medical Decision Making - Medical Decision Making 70-year-old female complaining of right matthew pain after hitting it on a bus step. Right tib-fib x-ray, 15 mg of Toradol ordered. X-ray negative. Case discussed with Dr. Calles patient can discharge home. - Radiology Data Radiology results: report reviewed, image reviewed Right lower extremity x-ray: No acute abnormality of the right tibia and fibula Disposition Clinical Impression: Right leg pain Disposition: HOME SELF-CARE Condition: Stable Instructions (If sedation given, give patient instructions): Leg Pain (ED) Additional Instructions: Please return to the Emergency Department if symptoms worsen or any other concerns. Follow-up with primary care in 3-5 days. Let will be sore due to bruising. Can take [id number] anti-inflammatories for symptomatic control. Is patient prescribed a controlled substance at d/c from ED?: No Referrals: Akash King MD [Primary Care Provider] - 1-2 days Time of Disposition: 18:05
--- NOTE | 2020-06-03 18:00 | XR ---
EXAMINATION TYPE: XR tibia fibula RT DATE OF EXAM: 06/03/2020 COMPARISON: NONE HISTORY: Right leg pain TECHNIQUE: 4 views FINDINGS: There is some spurring on the anterior patella. I see no fracture nor dislocation. Ankle mo rtise is anatomic. IMPRESSION: No acute abnormality of the right tibia and fibula.
[2020-06-03 18:31] VITALS: BP 170/88; PULSE 75; RESP 16
== END 2020-06-03 18:31 | disposition home or self-care (01) ==
LOC: EC 15:06
DX: M79.661 Pain in right lower leg (principal); I10 Essential (primary) hypertension; J45.909 Unspecified asthma, uncomplicated; F41.9 Anxiety disorder, unspecified; Z87.891 Personal history of nicotine dependence
CPT/HCPCS: 73590; 99284; 96372; J1885

== ENCOUNTER 2020-06-25 14:25 | Inpatient (IN) | payer MEDICARE ==
[2020-06-25] MEDS ORDERED: ACETAMINOPHEN TAB 325 MG TAB PO STA (15:08)
[2020-06-25] MEDS ORDERED: SODIUM CHLORIDE 0.9% 500 ML 500 ML IV ONE (15:09)
[2020-06-25] MEDS ORDERED: ONDANSETRON 4 MG/2 ML VIAL IVP STA (15:09)
--- NOTE | 2020-06-25 15:33 | XR ---
EXAMINATION TYPE: XR chest 1V portable DATE OF EXAM: 06/25/2020 COMPARISON: Chest x-ray dated 03/28/2016 HISTORY: Suspected Covid 19 pneumonia TECHNIQUE: Single frontal view of the chest is obtained. FINDINGS: Bilateral airspace disease is present. Heart size may be accentuated by rotation. Aorta is dense. No evident pneumothorax or pleural effusion. Postop changes are noted in the bilateral should ers. IMPRESSION: Correlate for pneumonia, follow-up as indicated.
[2020-06-25 15:50] LABS: Basophils % (A) 1 %; Eosinophils % (A) 0 %; HCT 42.3 % (34.0-46.0); Lymphocytes # (A) 0.6 k/uL (1.0-4.8); Lymphocytes % (A) 13 %; MCH 30.6 pg (25.0-35.0); MCHC 33.1 g/dL (31.0-37.0); MCV 92.5 fL (80.0-100.0); Mean Platelet Volume 8.7; Monocytes # (A) 0.2 k/uL (0-1.0); Monocytes % (A) 3 %; Neutrophils % (A) 81 %; Platelet Count 164 k/uL (150-450); RBC 4.57 m/uL (3.80-5.40); RDW 13.3 % (11.5-15.5); WBC 4.9 k/uL (3.8-10.6)
[2020-06-25 16:01] LABS: ALT 33 U/L (4-34); AST 61 U/L (14-36); African American GFR (CKD) >90 (>60 ml/min/1.73 sqM); Albumin 3.6 g/dL (3.5-5.0); Alkaline Phosphatase 63 U/L (38-126); Anion Gap 7 mmol/L; Blood Urea Nitrogen 18 mg/dL (7-17); Calcium 8.2 mg/dL (8.4-10.2); Carbon Dioxide 24 mmol/L (22-30); Chloride 104 mmol/L (98-107); Glucose 110 mg/dL (74-99); LDH 1432 U/L (313-618); Non-African American GFR(CKD) >90 (>60 ml/min/1.73 sqM); Sodium 135 mmol/L (137-145); Total Bilirubin 0.8 mg/dL (0.2-1.3); Total Protein 6.9 g/dL (6.3-8.2)
[2020-06-25 16:04] LABS: D-Dimer 0.59 mg/L FEU (<0.60); Partial Thromboplastin Time 30.4 sec (22.0-30.0); Prothrombin Time 10.7 sec (9.0-12.0)
[2020-06-25 16:31] LABS: C Reactive Protein 5.3 mg/dL (<1.0)
--- NOTE | 2020-06-25 17:10 | ED ---
General Adult HPI - General Chief complaint: Shortness of Breath Stated complaint: asthma Time Seen by Provider: 06/25/20 14:48 Source: patient, EMS Mode of arrival: EMS Limitations: no limitations - History of Present Illness Initial comments: 70-year-old female patient presents to the emergency department today for evaluation of cough, congestion, nausea. States she's had generalized weakness. Symptoms are present for the last week. Reports intermittent fevers. Denies diarrhea. She does report some shortness of breath with this. Denies any sp utum production with her cough. Denies any hemoptysis. She is concerned she may have COVID-19. Patient denies any recent rash, chest pain, abdominal pain, diarrhea, constipation, back pain, numbness, tingling, dizziness, weakness, hematuria, dysuria, urinary urgency, urinary frequency, headache, visual changes, or any other complaints. - Related Data Home Medications Medication Instructions Recorded Confirmed Citalopram Hydrobromide [CeleXA] 40 mg PO DAILY 12/07/13 06/25/20 Aspirin [Adult Low Dose Aspirin EC] 81 mg PO DAILY 11/22/17 06/25/20 Nitroglycerin Sl Tabs [Nitrostat] 0.4 mg SUBLINGUAL Q5M PRN 11/22/17 06/25/20 ALPRAZolam [Xanax] 1 mg PO BID PRN 06/03/20 06/25/20 Gabapentin [Neurontin] 300 mg PO TID 06/03/20 06/25/20 Levothyroxine Sodium 25 mcg PO DAILY 06/03/20 06/25/20 Meclizine HCl 25 mg PO BID PRN 06/03/20 06/25/20 Montelukast Sodium [Singulair] 10 mg PO HS 06/03/20 06/25/20 Naproxen 500 mg PO BID PRN 06/03/20 06/25/20 Verapamil HCl [Verapamil ER] 180 mg PO DAILY 06/03/20 06/25/20 traZODone HCL 100 mg PO HS 06/03/20 06/25/20 Allergies Allergy/AdvReac Type Severity Reaction Status Date / Time hydrocodone bitartrate AdvReac Nausea & Verified 06/25/20 16:05 [From Vicodin] Vomiting Review of Systems ROS Statement: Those systems with pertinent positive or pertinent negative responses have been documented in the HPI. ROS Other: All systems not noted in ROS Statement are negative. Past Medical History Past Medical History: Asthma, Hypertension Additional Past Medical History / Comment(s): 08/14/14 Pt admitted to floor s/p laparoscopic hiatal hernia repair. with lysis of adhesions and partial fundlopathy. Other HX: PARKINSONS, MIGRAINES, ASTHMA (NO MEDS), HIATAL HERNIA., STATES HX OF FALLS USES CANE AND WALKER. 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 History of Any Multi-Drug Resistant Organisms: None Reported Past Surgical History: Cholecystectomy, Hysterectomy, Orthopedic Surgery Additional Past Surgical History / Comment(s): 08/14/14 Laparoscopic hiatal h ernia repair with lysis of adhesions and partial fundlopathy, bilateral shoulder surgery, lt knee surgery and rt ankle surgery Past Anesthesia/Blood Transfusion Reactions: No Reported Reaction Past Psychological History: Anxiety, Bipolar Smoking Status: Former smoker Past Alcohol Use History: None Reported Past Drug Use History: None Reported - Past Family History Father Family Medical History: Cancer Additional Family Medical History / Comment(s): lung Mother Family Medical History: Deep Vein Thrombosis (DVT) Additional Family Medical History / Comment(s): Crohns General Exam Limitations: no limitations General appearance: alert, in no apparent distress, other (Physical well- developed, well-nourished adult female patient in no acute distress. Vital signs upon presentation are temperature 99.2F, pulse 94, respirations 18, blood pressure 142/80, pulse ox 95% on room air.) Eye exam: Present: normal appearance, PERRL, EOMI. Absent: scleral icterus, conjunctival injection, periorbital swelling ENT exam: Present: normal exam, normal oropharynx, mucous membranes moist Respiratory exam: Present: normal lung sounds bilaterally. Absent: respiratory distress, wheezes, rales, rhonchi, stridor Cardiovascular Exam: Present: regular rate, normal rhythm, normal heart sounds. Absent: systolic murmur, diastolic murmur, rubs, gallop, clicks GI/Abdominal exam: Present: soft, normal bowel sounds. Absent: distended, tenderness, guarding, rebound, rigid Neurological exam: Present: alert, oriented X3, CN II-XII intact Psychiatric exam: Present: normal affect, normal mood Skin exam: Present: warm, dry, intact, normal color. Absent: rash Course Vital Signs 06/25/20 06/25/20 06/25/20 14:50 14:55 14:56 Temperature 99.2 F Pulse Rate 94 85 Respiratory 18 18 18 Rate Blood Pressure 142/80 144/78 O2 Sat by Pulse 95 97 Oximetry 06/25/20 06/25/20 06/25/20 15:55 16:00 17:00 Temperature Pulse Rate 83 83 83 Respiratory 18 18 18 Rate Blood Pressure 147/86 122/75 O2 Sat by Pulse 97 97 97 Oximetry 06/25/20 18:00 Temperature Pulse Rate 91 Respiratory 18 Rate Blood Pressure 132/72 O2 Sat by Pulse 97 Oximetry EKG Findings - EKG Comments: EKG Findings:: EKG obtained at 1450 shows normal sinus rhythm with a ventricular rate of 89, ND interval 156, QRS duration 84, QT 366, QTc 445. No evidence of ST elevation or depression. Medical Decision Making - Medical Decision Making 70-year-old female patient presents to the emergency department today for evaluation of weakness, cough, nausea. Physical examination did reveal clear equal lung sounds. Labs reviewed and did reveal Sodium 135, BUN 18, normal lactic acid, elevated LDH at 1432, C-reactive protein 5.3. She did test positive for COVID-19. Test x-ray she was consistent with pneumonia. She will be started on dexamethasone. She did have low oxygen saturation on room air around 89-90%. She'll be admitted to the hospital for further evaluation and treatment. Case discussed with my attending Dr. Calles. - Lab Data Result diagrams: 06/25/20 15:33 06/25/20 15:33 Lab Results 06/25/20 06/25/20 06/25/20 Range/Units 15:33 15:33 15:33 WBC 4.9 (3.8-10.6) k/uL RBC 4.57 (3.80-5.40) m/uL Hgb 14.0 (11.4-16.0) gm/dL Hct 42.3 (34.0-46.0) % MCV 92.5 (80.0-100.0) fL MCH 30.6 (25.0-35.0) pg MCHC 33.1 (31.0-37.0) g/dL RDW 13.3 (11.5-15.5) % Plt Count 164 (150-450) k/uL MPV 8.7 Neutrophils % 81 % Lymphocytes % 13 % Monocytes % 3 % Eosinophils % 0 % Basophils % 1 % Neutrophils # 4.0 (1.3-7.7) k/uL Lymphocytes # 0.6 L (1.0-4.8) k/uL Monocytes # 0.2 (0-1.0) k/uL Eosinophils # 0.0 (0-0.7) k/uL Basophils # 0.0 (0-0.2) k/uL PT 10.7 (9.0-12.0) sec INR 1.0 (<1.2) APTT 30.4 H (22.0-30.0) sec D-Dimer 0.59 (<0.60) mg/L FEU Sodium 135 L (137-145) mmol/L Potassium 4.0 (3.5-5.1) mmol/L Chloride 104 (98-107) mmol/L Carbon Dioxide 24 (22-30) mmol/L Anion Gap 7 mmol/L BUN 18 H (7-17) mg/dL Creatinine 0.60 (0.52-1.04) mg/dL Est GFR (CKD-EPI)AfAm >90 (>60 ml/min/1.73 sqM) Est GFR (CKD-EPI)NonAf >90 (>60 ml/min/1.73 sqM) Glucose 110 H (74-99) mg/dL Plasma Lactic Acid Conrad (0.7-2.0) mmol/L Calcium 8.2 L (8.4-10.2) mg/dL Magnesium 2.0 (1.6-2.3) mg/dL Total Bilirubin 0.8 (0.2-1.3) mg/dL AST 61 H (14-36) U/L ALT 33 (4-34) U/L Alkaline Phosphatase 63 (38-126) U/L Lactate Dehydrogenase 1432 H (313-618) U/L C-Reactive Protein 5.3 H (<1.0) mg/dL Total Protein 6.9 (6.3-8.2) g/dL Albumin 3.6 (3.5-5.0) g/dL Coronavirus (PCR) (Not Detectd) 06/25/20 06/25/20 Range/Units 15:33 16:49 WBC (3.8-10.6) k/uL RBC (3.80-5.40) m/uL Hgb (11.4-16.0) gm/dL Hct (34.0-46.0) % MCV (80.0-100.0) fL MCH (25.0-35.0) pg MCHC (31.0-37.0) g/dL RDW (11.5-15.5) % Plt Count (150-450) k/uL MPV Neutrophils % % Lymphocytes % % Monocytes % % Eosinophils % % Basophils % % Neutrophils # (1.3-7.7) k/uL Lymphocytes # (1.0-4.8) k/uL Monocytes # (0-1.0) k/uL Eosinophils # (0-0.7) k/uL Basophils # (0-0.2) k/uL PT (9.0-12.0) sec INR (<1.2) APTT (22.0-30.0) sec D-Dimer (<0.60) mg/L FEU Sodium (137-145) mmol/L Potassium (3.5-5.1) mmol/L Chloride (98-107) mmol/L Carbon Dioxide (22-30) mmol/L Anion Gap mmol/L BUN (7-17) mg/dL Creatinine (0.52-1.04) mg/dL Est GFR (CKD-EPI)AfAm (>60 ml/min/1.73 sqM) Est GFR (CKD-EPI)NonAf (>60 ml/min/1.73 sqM) Glucose (74-99) mg/dL Plasma Lactic Acid Conrad 0.9 (0.7-2.0) mmol/L Calcium (8.4-10.2) mg/dL Magnesium (1.6-2.3) mg/dL Total Bilirubin (0.2-1.3) mg/dL AST (14-36) U/L ALT (4-34) U/L Alkaline Phosphatase (38-126) U/L Lactate Dehydrogenase (313-618) U/L C-Reactive Protein (<1.0) mg/dL Total Protein (6.3-8.2) g/dL Albumin (3.5-5.0) g/dL Coronavirus (PCR) Detected A (Not Detectd) - Radiology Data Radiology results: report reviewed, image reviewed Disposition Clinical Impression: COVID-19, Pneumonia, Hypoxia Disposition: ADMITTED IP TO THIS [facility] Condition: Serious Referrals: Akash King MD [Primary Care Provider] - 1-2 days Decision to Admit Reason: Admit from EC Decision Date: 06/25/20 Decision Time: 18:55
[2020-06-25] MEDS ORDERED: NALOXONE 0.4 MG/ML 1 ML VIAL IV PRN (18:51)
[2020-06-25] MEDS ORDERED: ONDANSETRON 4 MG/2 ML VIAL IVP PRN (18:51)
[2020-06-25] MEDS ORDERED: ENOXAPARIN 40 MG/0.4 ML SYRINGE SQ STA (18:54)
[2020-06-25] MEDS ORDERED: DEXAMETHASONE SOD PHOSPHATE 10 MG/ML 1 ML VIAL IV STA (18:54)
[2020-06-25] MEDS: SODIUM CHLORIDE 0.9% 1,000 ML IV SCH (19:40)
[2020-06-25] MEDS: ASCORBIC ACID 500 MG TAB PO SCH (19:41)
[2020-06-25] MEDS: NAPROXEN 250 MG TAB PO SCH (23:49)
[2020-06-25] MEDS: ACETAMINOPHEN TAB 325 MG TAB PO PRN (23:50)
[2020-06-25] MEDS: traZODone HCL 100 MG TAB PO SCH (23:50)
[2020-06-26 01:02] LABS: Ferritin 632.8 ng/mL (10.0-291.0)
[2020-06-26] MEDS ORDERED: MECLIZINE 25 MG TAB PO PRN (08:55)
[2020-06-26] MEDS ORDERED: NITROGLYCERIN SL TABS 0.4 MG TAB SUBLINGUAL PRN (08:55)
[2020-06-26] MEDS ORDERED: DEXAMETHASONE SOD PHOSPHATE 10 MG/ML 1 ML VIAL IV SCH (09:00)
[2020-06-26] MEDS: CITALOPRAM HYDROBROMIDE 20 MG TAB PO SCH (10:16)
[2020-06-26] MEDS: ASPIRIN 81 MG PO SCH (10:16)
[2020-06-26] MEDS: CHOLECALCIFEROL 25 MCG (1000 IU) TABLET PO SCH (10:16)
[2020-06-26] MEDS: GABAPENTIN 300 MG CAP PO SCH ×3 (10:16→20:47)
[2020-06-26] MEDS: ASCORBIC ACID 500 MG TAB PO SCH ×2 (10:17→20:47)
[2020-06-26] MEDS: ZINC SULFATE 220 MG CAP PO SCH (10:17)
[2020-06-26] MEDS: ENOXAPARIN 40 MG/0.4 ML SYRINGE SQ SCH (10:17)
[2020-06-26] MEDS: NAPROXEN 250 MG TAB PO SCH ×2 (10:17→20:47)
[2020-06-26] MEDS: LEVOTHYROXINE 25 MCG TAB PO SCH (13:05)
[2020-06-26] MEDS: methylPREDNISolone SOD SUCCI 125 MG/2 ML VIAL IV SCH ×3 (13:05→23:36)
[2020-06-26] MEDS: INSULIN ASPART (NovoLOG) 100 UNIT/ML VIAL SQ SCH ×2 (13:05→18:47)
[2020-06-26] MEDS: VERAPAMIL SR 180 MG TABLET.ER PO SCH (13:05)
--- NOTE | 2020-06-26 13:57 | P.HPIM ---
History of Present Illness H&P Date: 06/26/20 HISTORY OF PRESENT ILLNESS This is a 70-year-old female patient of Dr. King with past medical history of mild intermittent asthma, hypertension, Parkinson's, migraine headaches, hypothyroidism, remote history of tobacco use. Patient states that she lives alone but her granddaughter has been staying with her. On Wednesday she started having weakness, fevers, cough and congestion as well as nausea. No sputum production. No chest pain. No abdominal pain or diarrhea. Patient presented to [facility] emergency center for evaluation. She was found to be afebrile, heart rate 94, blood pressure 142/80, pulse ox 95% on room air. EKG was a sinus rhythm with no acute ST changes. Blood work revealed sodium 135, potassium 4.0, chloride 104, CO2 24, BUN 18 and creatinine 0.6. Blood sugar 110. D-dimer 0.59. Calcium 8.2. AST 61 otherwise liver function test were normal. LDH 1432. C-reactive protein 5.3. Lactic acid 0.9. Coronavirus PCR detected. WBC 4.9, hemoglobin 14, platelet count 164. Chest x-ray reveals correlate for pneumonia. Patient admitted to the cardiac stepdown unit and pulmonary consult requested and discussed option of Remdesivir. REVIEW OF SYSTEMS Constitutional: No fever, no chills, no night sweats. No weight change. Reports weakness, Reports fatigue Reports lethargy. No daytime sleepiness. EENT: No headache. No blurred vision or double vision, no loss of vision. No loss of Hearing, no ringing in the ears, no dizziness. No nasal drainage or congestion. No epistaxis. No sore throat. Lungs: Reports shortness of breath, Reports cough, no sputum production. No wheezing. Cardiovascular: No chest pain, no lower extremity edema. No palpitations. No paroxysmal nocturnal dyspnea. No orthopnea. No lightheadedness or dizziness. No syncopal episodes. Abdominal: No abdominal pain. Reports nausea, denies vomiting. No diarrhea. No constipation. No bloody or tarry stools. Reports loss of appetite. Genitourinary: No dysuria, increased frequency, urgency. No urinary retention. Musculoskeletal: Reports myalgias. Reports muscle weakness, no gait dysfunction, no frequent falls. No back pain. No neck pain. Integumentary: No wounds, no lesions. No rash or pruritus. No unusual bruising. No change in hair or nails. Neurologic: No aphasia. No facial droop. No change in mentation. No head injury. No headache. No paralysis. No paresthesia. Psychiatric: No depression. No anxiety. Endocrine: No abnormal blood sugars. SOCIAL HISTORY Patient was a smoker of 3 packs per day for 10 years ago 45 years ago. She does have history of alcohol abuse but also quit many years ago. She denies any illicit drug use. FAMILY HISTORY Mother is alive with history of coronary artery disease, Crohn's disease, DVT. Patient's mother is currently hospitalized at [facility] and needs open heart surgery. Father from lung cancer. Patient has 2 sisters and 1 brother and she has no contact with them. She has 1 daughter and 1 son with no major medical problems. PHYSICAL EXAMINATION Gen: This is a 70-year-old female. She is resting in bed and appears to be comfortable. She has on 2 L nasal cannula. No acute respiratory distress is noted. HEENT: Head is atraumatic, normocephalic. Pupils equal, round. Sclerae is anicteric. NECK: Supple. No JVD. No lymphadenopathy. No thyromegaly. LUNGS: Bilateral expiratory wheeze. No intercostal retractions. HEART: Regular rate and rhythm. No murmur. ABDOMEN: Soft. Bowel sounds are present. No masses. No tenderness. EXTREMITIES: No pedal edema. No calf tenderness. Dorsalis pedis palpable bilaterally. NEUROLOGICAL: Patient is awake, alert and oriented x3. Cranial nerves 2 through 12 are grossly intact. ASSESSMENT AND PLAN 1. Acute hypoxic respiratory failure secondary to Covid 19 pneumonia. Pul monary medicine consult appreciated. Patient started on Remdesivir day #1/5, Solu-Medrol 60 mg IV every 6 hours, Lovenox 40 mg subcu daily, vitamin supplements. 2. Mild intermittent asthma with exacerbation. Patient started on Solu-Medrol 60 mg IV every 6 hours, Atrovent inhaler 4 times daily, Symbicort twice daily, Singulair 10 mg at bedtime. 3. Hypertension. Continue verapamil 180 mg daily. 4. Hypothyroidism. Continue levothyroxine 25 g daily. 5. Recurrent depression and generalized anxiety disorder. Continue citalopram 40 mg daily, Xanax 1 mg twice daily as needed. 6. Bipolar disorder. Continue Neurontin 300 mg 3 times daily, trazodone 100 mg at bedtime. 7. Remote history of tobacco use. 8. History of alcohol abuse. 9. GI prophylaxis. Protonix 40 mg oral daily. 10. DVT prophylaxis. Lovenox 40 mg subcu daily. Patient will be admitted to the hospital for a minimum of 2 night stay. DISCHARGE PLAN Most likely return home. Impression and plan of care have been directed as dictated by the signing physician. Millie Hogue nurse practitioner acting as scribe for signing physician. Past Medical History Past Medical History: Asthma, Hypertension Additional Past Medical History / Comment(s): 08/14/14 Pt admitted to floor s/p laparoscopic hiatal hernia repair. with lysis of adhesions and partial fundlopathy. Other HX: PARKINSONS, MIGRAINES, ASTHMA (NO MEDS), HIATAL HERNIA., STATES HX OF FALLS USES CANE AND WALKER. 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 PT denies any depression at the moment and denies any suicidal thoughts. Smoking Status: Former smoker Past Alcohol Use History: None Reported Additional Past Alcohol Use History / Comment(s): sober x 2 years Past Drug Use History: None Reported - Past Family History Father Family Medical History: Cancer Additional Family Medical History / Comment(s): lung Mother Family Medical History: Deep Vein Thrombosis (DVT) Additional Family Medical History / Comment(s): Crohns Medications and Allergies Home Medications Medication Instructions Recorded Confirmed Type Citalopram Hydrobromide [CeleXA] 40 mg PO DAILY 12/07/13 06/25/20 History Aspirin [Adult Low Dose Aspirin EC] 81 mg PO DAILY 11/22/17 06/25/20 History Nitroglycerin Sl Tabs [Nitrostat] 0.4 mg SUBLINGUAL Q5M PRN 11/22/17 06/25/20 History ALPRAZolam [Xanax] 1 mg PO BID PRN 06/03/20 06/25/20 History Gabapentin [Neurontin] 300 mg PO TID 06/03/20 06/25/20 History Levothyroxine Sodium 25 mcg PO DAILY 06/03/20 06/25/20 History Meclizine HCl 25 mg PO BID PRN 06/03/20 06/25/20 History Montelukast Sodium [Singulair] 10 mg PO HS 06/03/20 06/25/20 History Naproxen 500 mg PO BID PRN 06/03/20 06/25/20 History Verapamil HCl [Verapamil ER] 180 mg PO DAILY 06/03/20 06/25/20 History traZODone HCL 100 mg PO HS 06/03/20 06/25/20 History Allergies Allergy/AdvReac Type Severity Reaction Status Date / Time hydrocodone bitartrate AdvReac Nausea & Verified 06/25/20 16:05 [From Vicodin] Vomiting Physical Exam Vitals: Vital Signs Temp Pulse Pulse Resp BP BP Pulse Ox 06/26/20 04:00 84 22 129/68 94 L 06/26/20 00:58 18 06/25/20 22:26 99.2 F 92 18 143/78 95 06/25/20 22:00 92 18 143/78 95 06/25/20 21:54 99.1 F 96 20 146/69 95 06/25/20 21:00 91 18 146/72 95 06/25/20 20:00 88 18 130/81 95 06/25/20 19:00 18 97 06/25/20 18:00 91 18 132/72 97 06/25/20 17:00 83 18 122/75 97 06/25/20 16:00 83 18 97 06/25/20 15:55 83 18 147/86 97 06/25/20 14:56 18 06/25/20 14:55 85 18 144/78 97 06/25/20 14:50 99.2 F 94 18 142/80 95 Intake and Output 06/25/20 06/26/20 06/26/20 22:59 06:59 14:59 Other: Voiding Method Toilet Diaper Weight 87.997 kg 66 kg Results CBC & Chem 7: 06/25/20 15:33 06/25/20 15:33 Labs: Abnormal Lab Results - Last 24 Hours (Table) 06/25/20 06/25/20 06/25/20 Range/Units 15:33 15:33 15:33 Lymphocytes # 0.6 L (1.0-4.8) k/uL APTT 30.4 H (22.0-30.0) sec Sodium 135 L (137-145) mmol/L BUN 18 H (7-17) mg/dL Glucose 110 H (74-99) mg/dL Calcium 8.2 L (8.4-10.2) mg/dL Ferritin 632.8 H (10.0-291.0) ng/mL AST 61 H (14-36) U/L Lactate Dehydrogenase 1432 H (313-618) U/L C-Reactive Protein 5.3 H (<1.0) mg/dL Coronavirus (PCR) (Not Detectd) 06/25/20 Range/Units 16:49 Lymphocytes # (1.0-4.8) k/uL APTT (22.0-30.0) sec Sodium (137-145) mmol/L BUN (7-17) mg/dL Glucose (74-99) mg/dL Calcium (8.4-10.2) mg/dL Ferritin (10.0-291.0) ng/mL AST (14-36) U/L Lactate Dehydrogenase (313-618) U/L C-Reactive Protein (<1.0) mg/dL Coronavirus (PCR) Detected A (Not Detectd) Thrombosis Risk Factor Assmnt - Choose All That Apply Each Factor Represents 1 point: Obesity (BMI >25) Other Risk Factors: No Other congenital or acquired thrombophilia - If yes, enter type in comment: No Thrombosis Risk Factor Assessment Total Risk Factor Score: 1 Thrombosis Risk Factor Assessment Level: Low Risk
[2020-06-26] MEDS ORDERED: REMDESIVIR 200 MG in SODIUM CHLORIDE 0.9% 250 ML IVPB ONE (14:00)
[2020-06-26] MEDS ORDERED: VANCOMYCIN IV PER PHARMACY 1 EACH MISC MISCELLANE PRN (15:20)
--- NOTE | 2020-06-26 16:09 | P.CNPUL ---
History of Present Illness Consult date: 06/26/20 Requesting physician: Mckin[facility] Reason for consult: pneumonia Chief complaint: Multiple constitutional symptoms History of present illness: This is a 70-year-old female with history of multiple medical problems including mild asthma, hypertension, Parkinson's disease, hypothyroidism, remote smoking history, patient was seen in the ER with 1 week history of multiple constitutional symptoms including weakness, fatigue, fevers, cough, congestion, nausea, some vomiting, and intermittent diarrhea. As well as headaches. Patient was evaluated in the ER, she was found to have positive PCR for wall virus. She had a relatively low d-dimer. Normal liver enzymes. Normal renal profile. Relatively normal CBC. Relatively normal electrolytes and renal profile. Elevated LDH of 1432, and C-reactive protein of 5.3. Chest x-ray on admission showed bilateral airspace disease. Patient requires oxygen at 3 L nasal cannula, and her O2 saturations 94%. Considering her presentation, I was asked to see her on consultation. After evaluating the patient, I recommended that we start the patient on REM. Review of Systems Constitutional: As noted in HPI, multiple constitutional symptoms. HEENT: Negative. Pulmonary: As noted in HPI. Cardiac: Negative. GI: As noted in HPI. Genitourinary: Negative. Musculoskeletal: Aches and pains Skin: Negative. Neurologic intermittent headaches. Psychiatric: Negative. Endocrine: Negative. Hematologic: Negative. Past Medical History Past Medical History: Asthma, Hypertension Additional Past Medical History / Comment(s): 08/14/14 Pt admitted to floor s/p laparoscopic hiatal hernia repair. with lysis of adhesions and partial fundlopathy. Other HX: PARKINSONS, MIGRAINES, ASTHMA (NO MEDS), HIATAL HERNIA., STATES HX OF FALLS USES CANE AND WALKER. 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 PT denies any depression at the moment and denies any suicidal thoughts. Smoking Status: Former smoker Past Alcohol Use History: None Reported Additional Past Alcohol Use History / Comment(s): sober x 2 years Past Drug Use History: None Reported - Past Family History Father Family Medical History: Cancer Additional Family Medical History / Comment(s): lung Mother Family Medical History: Deep Vein Thrombosis (DVT) Additional Family Medical History / Comment(s): Crohns Medications and Allergies Home Medications Medication Instructions Recorded Confirmed Type Citalopram Hydrobromide [CeleXA] 40 mg PO DAILY 12/07/13 06/25/20 History Aspirin [Adult Low Dose Aspirin EC] 81 mg PO DAILY 11/22/17 06/25/20 History Nitroglycerin Sl Tabs [Nitrostat] 0.4 mg SUBLINGUAL Q5M PRN 11/22/17 06/25/20 History ALPRAZolam [Xanax] 1 mg PO BID PRN 06/03/20 06/25/20 History Gabapentin [Neurontin] 300 mg PO TID 06/03/20 06/25/20 History Levothyroxine Sodium 25 mcg PO DAILY 06/03/20 06/25/20 History Meclizine HCl 25 mg PO BID PRN 06/03/20 06/25/20 History Montelukast Sodium [Singulair] 10 mg PO HS 06/03/20 06/25/20 History Naproxen 500 mg PO BID PRN 06/03/20 06/25/20 History Verapamil HCl [Verapamil ER] 180 mg PO DAILY 06/03/20 06/25/20 History traZODone HCL 100 mg PO HS 06/03/20 06/25/20 History Allergies Allergy/AdvReac Type Severity Reaction Status Date / Time hydrocodone bitartrate AdvReac Nausea & Verified 06/25/20 16:05 [From Vicodin] Vomiting Physical Exam Vitals: Vital Signs Temp Pulse Pulse Resp BP BP Pulse Ox 06/26/20 12:00 98.2 F 82 18 176/82 94 L 06/26/20 09:50 98.2 F 91 18 142/77 96 06/26/20 04:00 84 22 129/68 94 L 06/26/20 00:58 18 06/25/20 22:26 99.2 F 92 18 143/78 95 06/25/20 22:00 92 18 143/78 95 06/25/20 21:54 99.1 F 96 20 146/69 95 06/25/20 21:00 91 18 146/72 95 06/25/20 20:00 88 18 130/81 95 06/25/20 19:00 18 97 06/25/20 18:00 91 18 132/72 97 06/25/20 17:00 83 18 122/75 97 06/25/20 16:00 83 18 97 Intake and Output 06/26/20 06/26/20 06/26/20 06:59 14:59 22:59 Intake Total 480 Balance 480 Intake: Oral 480 Other: Voiding Method Toilet Toilet Diaper Diaper Weight 66 kg Physical Exam: Revealed a 70-year-old female in no distress, on 2 liters nasal cannula. Head: Atraumatic normocephalic. HEENT:[Neck is supple.] [No neck masses.] [No thyromegaly.] [No JVD.] Chest: [Symmetrical chest expansion, crackles at the bases, no rhonchi and no wheezes. Cardiac Exam: [Normal S1 and S2, no S3 gallop, no murmur.] Abdomen: [Soft, nontender, no megaly, no rebound, no guarding, normal bowel sounds.] Extremities: [No clubbing, no edema, no cyanosis.] Neurological Exam: [No focal neurologic deficit.] Alert oriented 3. Psychiatric: Normal mood affect and normal mental status examination. Skin: No rashes. Results - Laboratory Findings CBC and BMP: 06/25/20 15:33 06/25/20 15:33 PT/INR, D-dimer PT 10.7 sec (9.0-12.0) 06/25/20 15:33 INR 1.0 (<1.2) 06/25/20 15:33 D-Dimer 0.59 mg/L FEU (<0.60) 06/25/20 15:33 Abnormal lab findings: Abnormal Labs 06/25/20 06/25/20 06/25/20 15:33 15:33 15:33 Lymphocytes # 0.6 L APTT 30.4 H Sodium 135 L BUN 18 H Glucose 110 H Calcium 8.2 L Ferritin 632.8 H AST 61 H Lactate Dehydrogenase 1432 H C-Reactive Protein 5.3 H Coronavirus (PCR) 06/25/20 16:49 Lymphocytes # APTT Sodium BUN Glucose Calcium Ferritin AST Lactate Dehydrogenase C-Reactive Protein Coronavirus (PCR) Detected A - Diagnostic Findings Chest x-ray: image reviewed (As noted in HPI.) Assessment and Plan Assessment: Impression: Acute hypoxic respiratory failure secondary to acute COVID-19 pneumonia History of mild intermittent asthma presently in active however the patient is on steroids. Benign essential hypertension. Hypothyroidism. History of depression and generalized anxiety disorder. History of bipolar disorder. Remote smoking history. Recommendation: Continue REM. Continue Lovenox Continue the COVID-19 cocktail. Resume home meds including her thyroid medication and her depression medications. Continue Protonix. Continue bronchodilators. Continue methylprednisolone instead of Decadron. Continue Symbicort and albuterol. We will continue to follow. Time with Patient: Greater than 30
[2020-06-26 16:52] LABS: Glucose,Whole Blood 165 mg/dL (75-99)
[2020-06-26] MEDS: SODIUM CHLORIDE 0.9% 1,000 ML IV SCH (17:36)
[2020-06-26] MEDS: VANCOMYCIN 1,000 MG in SODIUM CHLORIDE 0.9% 250 ML IVPB SCH ×2 (18:48→23:36)
[2020-06-26 20:04] LABS: Glucose,Whole Blood 163 mg/dL (75-99)
[2020-06-26] MEDS: MONTELUKAST 10 MG TAB PO SCH (20:47)
[2020-06-26] MEDS: traZODone HCL 100 MG TAB PO SCH ×2 (20:47)
[2020-06-26] MEDS: SYMBICORT 160-4.5 MCG INHALER INHALATION SCH (21:20)
[2020-06-26] MEDS: ALBUTEROL HFA INHALER INHALATION PRN (21:21)
[2020-06-26] MEDS: ACETAMINOPHEN TAB 325 MG TAB PO PRN (23:38)
[2020-06-27 06:05] LABS: Glucose,Whole Blood 161 mg/dL (75-99)
[2020-06-27] MEDS: LEVOTHYROXINE 25 MCG TAB PO SCH (06:25)
[2020-06-27] MEDS: PANTOPRAZOLE 40 MG TABLET PO SCH (06:25)
[2020-06-27] MEDS: methylPREDNISolone SOD SUCCI 125 MG/2 ML VIAL IV SCH ×4 (06:28→23:35)
[2020-06-27] MEDS: INSULIN ASPART (NovoLOG) 100 UNIT/ML VIAL SQ SCH ×5 (06:28→21:08)
[2020-06-27] MEDS: SYMBICORT 160-4.5 MCG INHALER INHALATION SCH ×2 (08:06→21:11)
[2020-06-27] MEDS: ALBUTEROL HFA INHALER INHALATION PRN ×4 (08:06→21:11)
[2020-06-27 08:22] LABS: African American GFR (CKD) >90 (>60 ml/min/1.73 sqM); Non-African American GFR(CKD) >90 (>60 ml/min/1.73 sqM)
[2020-06-27] MEDS: VANCOMYCIN 1,000 MG in SODIUM CHLORIDE 0.9% 250 ML IVPB SCH (09:08)
[2020-06-27] MEDS: ASPIRIN 81 MG PO SCH (09:09)
[2020-06-27] MEDS: ALPRAZolam 1 MG TAB PO PRN (09:09)
[2020-06-27] MEDS: GABAPENTIN 300 MG CAP PO SCH ×3 (09:09→21:07)
[2020-06-27] MEDS: ASCORBIC ACID 500 MG TAB PO SCH ×2 (09:09→21:08)
[2020-06-27] MEDS: ZINC SULFATE 220 MG CAP PO SCH (09:09)
[2020-06-27] MEDS: CHOLECALCIFEROL 25 MCG (1000 IU) TABLET PO SCH (09:09)
[2020-06-27] MEDS: NAPROXEN 250 MG TAB PO SCH ×2 (09:10→21:07)
[2020-06-27] MEDS: VERAPAMIL SR 180 MG TABLET.ER PO SCH (09:10)
[2020-06-27] MEDS: ENOXAPARIN 40 MG/0.4 ML SYRINGE SQ SCH (09:10)
[2020-06-27] MEDS: CITALOPRAM HYDROBROMIDE 20 MG TAB PO SCH (09:10)
[2020-06-27] MEDS: SODIUM CHLORIDE 0.9% 1,000 ML IV SCH (11:34)
[2020-06-27 11:54] LABS: Glucose,Whole Blood 140 mg/dL (75-99)
--- NOTE | 2020-06-27 14:02 | P.PN ---
Subjective Progress Note Date: 06/27/20 This is a 70-year-old female patient of Dr. King with past medical history of mild intermittent asthma, hypertension, Parkinson's, migraine headaches, hypothyroidism, remote history of tobacco use. Patient states that she lives alone but her granddaughter has been staying with her. On Wednesday she started having weakness, fevers, cough and congestion as well as nausea. No sputum production. No chest pain. No abdominal pain or diarrhea. Patient presented to [facility] emergency center for evaluation. She was found to be afebrile, heart rate 94, blood pressure 142/80, pulse ox 95% on room air. EKG was a sinus rhythm with no acute ST changes. Blood work revealed sodium 135, potassium 4.0, chloride 104, CO2 24, BUN 18 and creatinine 0.6. Blood sugar 110. D-dimer 0.59. Calcium 8.2. AST 61 otherwise liver function test were normal. LDH 1432. C-reactive protein 5.3. Lactic acid 0.9. Coronavirus PCR detected. WBC 4.9, hemoglobin 14, platelet count 164. Chest x-ray reveals correlate for pneumonia. Patient admitted to the cardiac stepdown unit and pulmonary consult requested and discussed option of Remdesivir. Patient evaluated bedside , feels tightness and SOB on 2 L of oxygen . Bedside pulse ox was checked patient was saturating at 94% on 2 L. Patient is initiated on remdesivir the treatment by pulmonary. Patient denies any cough, diarrhea or change in bowel habits. She does feel fatigued. Continue Solu- Medrol 60 every 6. Continue Lovenox 40 subcu daily. We'll discontinue vancomycin as blood cultures are growing gram-negative staph. Continue treatment for COVID. Vital signs his temperature 97.9 pulse 60. Respiratory rate 22 blood pressure 141/72 oxygen saturation 94% on 1 L. PTOT evaluation ordered REVIEW OF SYSTEMS Constitutional: No fever, no chills, no night sweats. No weight change. Re ports weakness, Reports fatigue Reports lethargy. No daytime sleepiness. EENT: No headache. No blurred vision or double vision, no loss of vision. No loss of Hearing, no ringing in the ears, no dizziness. No nasal drainage or congestion. No epistaxis. No sore throat. Lungs: Reports shortness of breath, Reports cough, no sputum production. No wheezing. Cardiovascular: No chest pain, no lower extremity edema. No palpitations. No paroxysmal nocturnal dyspnea. No orthopnea. No lightheadedness or dizziness. No syncopal episodes. Abdominal: No abdominal pain. Reports nausea, denies vomiting. No diarrhea. No constipation. No bloody or tarry stools. Reports loss of appetite. Genitourinary: No dysuria, increased frequency, urgency. No urinary retention. Musculoskeletal: Reports myalgias. Reports muscle weakness, no gait dysfunction, no frequent falls. No back pain. No neck pain. Integumentary: No wounds, no lesions. No rash or pruritus. No unusual bruising. No change in hair or nails. Neurologic: No aphasia. No facial droop. No change in mentation. No head injury. No headache. No paralysis. No paresthesia. Psychiatric: No depression. No anxiety. Endocrine: No abnormal blood sugars. Objective - Vital Signs Vital signs: Vital Signs Temp 97.9 F 06/27/20 12:00 Pulse 64 06/27/20 12:00 Resp 22 06/27/20 12:00 BP 141/72 06/27/20 12:00 Pulse Ox 94 L 06/27/20 12:00 Intake & Output 06/26/20 06/27/20 06/27/20 18:59 06:59 18:59 Intake Total 480 650 240 Output Total 400 Balance 480 250 240 Weight 65.5 kg Intake: Intake, IV Titration 100 Amount Sodium Chloride 0.9% 1, 100 000 ml @ 50 mls/hr IV . Q20H [facility] Rx#:[id number] Oral 480 550 240 Output: Urine 400 Other: Voiding Method Toilet Toilet Diaper Diaper # Voids 1 1 - Exam PHYSICAL EXAMINATION Gen: This is a 70-year-old female. She is resting in bed and appears to be comfortable. She has on 2 L nasal cannula. No acute respiratory distress is noted. HEENT: Head is atraumatic, normocephalic. Pupils equal, round. Sclerae is anicteric. NECK: Supple. No JVD. No lymphadenopathy. No thyromegaly. LUNGS: Bilateral expiratory wheeze. No intercostal retractions. HEART: Regular rate and rhythm. No murmur. ABDOMEN: Soft. Bowel sounds are present. No masses. No tenderness. EXTREMITIES: No pedal edema. No calf tenderness. Dorsalis pedis palpable b ilaterally. NEUROLOGICAL: Patient is awake, alert and oriented x3. Cranial nerves 2 through 12 are grossly intact. - Labs CBC & Chem 7: 06/25/20 15:33 06/27/20 07:42 Labs: Abnormal Lab Results - Last 24 Hours (Table) 06/25/20 06/26/20 06/26/20 Range/Units 15:33 16:47 20:03 POC Glucose (mg/dL) 165 H 163 H (75-99) mg/dL Procalcitonin 0.22 H (0.02-0.09) ng/mL 06/27/20 06/27/20 Range/Units 06:03 11:51 POC Glucose (mg/dL) 161 H 140 H (75-99) mg/dL Procalcitonin (0.02-0.09) ng/mL Microbiology - Last 24 Hours (Table) 06/25/20 15:33 Blood Culture Gram Stain - Preliminary Blood Blood Culture - Preliminary Coagulase Negative Staph 06/25/20 15:33 Blood Culture Gram Stain - Preliminary Blood Blood Culture - Preliminary Coagulase Negative Staph 06/25/20 15:33 Blood Culture - Final Blood 06/25/20 15:33 Blood Culture - Final Blood Assessment and Plan Plan: ASSESSMENT AND PLAN 1. Acute hypoxic respiratory failure secondary to Covid 19 pneumonia. Pulmona ry medicine consult appreciated. Patient started on Remdesivir day #2/5, Solu- Medrol 60 mg IV every 6 hours, Lovenox 40 mg subcu daily, vitamin supplements. 2. Mild intermittent asthma with exacerbation. Patient started on Solu-Medrol 60 mg IV every 6 hours, Atrovent inhaler 4 times daily, Symbicort twice daily, Singulair 10 mg at bedtime. 3. Hypertension. Continue verapamil 180 mg daily. 4. Hypothyroidism. Continue levothyroxine 25 g daily. 5. Recurrent depression and generalized anxiety disorder. Continue citalopram 40 mg daily, Xanax 1 mg twice daily as needed. 6. Bipolar disorder. Continue Neurontin 300 mg 3 times daily, trazodone 100 mg at bedtime. 7. Remote history of tobacco use. 8. History of alcohol abuse. 9. GI prophylaxis. Protonix 40 mg oral daily. 10. DVT prophylaxis. Lovenox 40 mg subcu daily. 11 generalized debility PTOT consult
[2020-06-27] MEDS: REMDESIVIR 100 MG in SODIUM CHLORIDE 0.9% 250 ML IVPB SCH (14:43)
--- NOTE | 2020-06-27 16:10 | P.PN ---
Subjective Progress Note Date: 06/27/20 Principal diagnosis: Acute hypoxic respiratory failure secondary to acute COVID-19 pneumonia This is a 70-year-old female with history of multiple medical problems including mild asthma, hypertension, Parkinson's disease, hypothyroidism, remote smoking history, patient was seen in the ER with 1 week history of multiple constitutional symptoms including weakness, fatigue, fevers, cough, congestion, nausea, some vomiting, and intermittent diarrhea. As well as headaches. Juana reece was evaluated in the ER, she was found to have positive PCR for wall virus. She had a relatively low d-dimer. Normal liver enzymes. Normal renal profile. Relatively normal CBC. Relatively normal electrolytes and renal profile. Elevated LDH of 1432, and C-reactive protein of 5.3. Chest x-ray on admission showed bilateral airspace disease. Patient requires oxygen at 3 L nasal cannula, and her O2 saturations 94%. Considering her presentation, I was asked to see her on consultation. After evaluating the patient, I recommended that we start the patient on REM. Patient was reevaluated today on 06/27/2020, feeling a bit better today, she is down to 1 L nasal cannula, and her O2 sats is 94%. Patient is receiving REM for her underlying COVID-19 pneumonia. Patient has shortness of breath with activity, intermittent cough, no fever, no chills, no hemoptysis and no chest pain. No labs were drawn today, labs from yesterday were reviewed, LDH was 1432 and C-reactive protein was 5.3. Pro-calcitonin was 0.22. Blood cultures are showing coagulase-negative staph, as these are suspected to be contaminated blood cultures, and the patient will not need to be on antibiotics. Objective - Vital Signs Vital signs: Vital Signs Temp 97.9 F 06/27/20 12:00 Pulse 64 06/27/20 12:00 Resp 22 06/27/20 12:00 BP 141/72 06/27/20 12:00 Pulse Ox 94 L 06/27/20 12:00 Intake & Output 06/26/20 06/27/20 06/27/20 18:59 06:59 18:59 Intake Total 480 650 420 Output Total 400 Balance 480 250 420 Weight 65.5 kg Intake: Intake, IV Titration 100 Amount Sodium Chloride 0.9% 1, 100 000 ml @ 50 mls/hr IV . Q20H COLE Rx#:[id number] Oral 480 550 420 Output: Urine 400 Other: Voiding Method Toilet Toilet Diaper Diaper # Voids 1 1 1 - Exam Physical Exam: Revealed a 70-year-old female in no distress, on one liters nasal cannula. Head: Atraumatic normocephalic. HEENT:[Neck is supple.] [No neck masses.] [No thyromegaly.] [No JVD.] Chest: [Symmetrical chest expansion, crackles at the bases, no rhonchi and no wheezes. Cardiac Exam: [Normal S1 and S2, no S3 gallop, no murmur.] Abdomen: [Soft, nontender, no megaly, no rebound, no guarding, normal bowel sounds.] Extremities: [No clubbing, no edema, no cyanosis.] Neurological Exam: [No focal neurologic deficit.] Alert oriented 3. Psychiatric: Normal mood affect and normal mental status examination. Skin: No rashes. - Labs CBC & Chem 7: 06/25/20 15:33 06/27/20 07:42 Labs: Abnormal Lab Results - Last 24 Hours (Table) 06/25/20 06/26/20 06/26/20 Range/Units 15:33 16:47 20:03 POC Glucose (mg/dL) 165 H 163 H (75-99) mg/dL Procalcitonin 0.22 H (0.02-0.09) ng/mL 06/27/20 06/27/20 Range/Units 06:03 11:51 POC Glucose (mg/dL) 161 H 140 H (75-99) mg/dL Procalcitonin (0.02-0.09) ng/mL Microbiology - Last 24 Hours (Table) 06/25/20 15:33 Blood Culture Gram Stain - Preliminary Blood Blood Culture - Preliminary Coagulase Negative Staph 06/25/20 15:33 Blood Culture Gram Stain - Preliminary Blood Blood Culture - Preliminary Coagulase Negative Staph Assessment and Plan Assessment: Impression: Acute hypoxic respiratory failure secondary to acute COVID-19 pneumonia History of mild intermittent asthma presently in active however the patient is on steroids. Benign essential hypertension. Hypothyroidism. History of depression and generalized anxiety disorder. History of bipolar disorder. Remote smoking history. Recommendation: Continue REM. Continue Lovenox Continue the COVID-19 cocktail. Continue Protonix. Continue bronchodilators. Continue methylprednisolone instead of Decadron. Continue Symbicort and albuterol. We will continue to follow. Time with Patient: Less than 30
[2020-06-27 16:55] LABS: Glucose,Whole Blood 148 mg/dL (75-99)
[2020-06-27 20:17] LABS: Glucose,Whole Blood 194 mg/dL (75-99)
[2020-06-27] MEDS: MONTELUKAST 10 MG TAB PO SCH (21:07)
[2020-06-27] MEDS: traZODone HCL 100 MG TAB PO SCH (21:08)
[2020-06-28] MEDS: LEVOTHYROXINE 25 MCG TAB PO SCH (05:56)
[2020-06-28] MEDS: methylPREDNISolone SOD SUCCI 125 MG/2 ML VIAL IV SCH ×2 (05:56→12:17)
[2020-06-28] MEDS: PANTOPRAZOLE 40 MG TABLET PO SCH (05:56)
[2020-06-28 06:28] LABS: Glucose,Whole Blood 195 mg/dL (75-99)
[2020-06-28] MEDS: SODIUM CHLORIDE 0.9% 1,000 ML IV SCH (06:36)
[2020-06-28] MEDS: INSULIN ASPART (NovoLOG) 100 UNIT/ML VIAL SQ SCH ×4 (06:37→21:01)
[2020-06-28] MEDS: ASPIRIN 81 MG PO SCH (08:03)
[2020-06-28] MEDS: ENOXAPARIN 40 MG/0.4 ML SYRINGE SQ SCH (08:03)
[2020-06-28] MEDS: GABAPENTIN 300 MG CAP PO SCH ×3 (08:03→21:01)
[2020-06-28] MEDS: CHOLECALCIFEROL 25 MCG (1000 IU) TABLET PO SCH (08:03)
[2020-06-28] MEDS: ZINC SULFATE 220 MG CAP PO SCH (08:03)
[2020-06-28] MEDS: NAPROXEN 250 MG TAB PO SCH ×2 (08:03→20:59)
[2020-06-28] MEDS: ASCORBIC ACID 500 MG TAB PO SCH ×2 (08:03→21:01)
[2020-06-28] MEDS: VERAPAMIL SR 180 MG TABLET.ER PO SCH (08:04)
[2020-06-28] MEDS: CITALOPRAM HYDROBROMIDE 20 MG TAB PO SCH (08:04)
[2020-06-28] MEDS: ALPRAZolam 1 MG TAB PO PRN (08:16)
[2020-06-28] MEDS: ACETAMINOPHEN TAB 325 MG TAB PO PRN (08:16)
[2020-06-28] MEDS: SYMBICORT 160-4.5 MCG INHALER INHALATION SCH ×2 (08:53→20:39)
[2020-06-28] MEDS: ALBUTEROL HFA INHALER INHALATION PRN ×3 (08:53→20:40)
[2020-06-28 11:31] LABS: ALT 24 U/L (4-34); AST 35 U/L (14-36); African American GFR (CKD) >90 (>60 ml/min/1.73 sqM); Albumin 3.2 g/dL (3.5-5.0); Alkaline Phosphatase 83 U/L (38-126); Anion Gap 9 mmol/L; Blood Urea Nitrogen 20 mg/dL (7-17); Calcium 8.8 mg/dL (8.4-10.2); Carbon Dioxide 24 mmol/L (22-30); Chloride 107 mmol/L (98-107); Glucose 199 mg/dL (74-99); Non-African American GFR(CKD) >90 (>60 ml/min/1.73 sqM); Potassium 3.5 mmol/L (3.5-5.1); Sodium 140 mmol/L (137-145); Total Bilirubin 0.3 mg/dL (0.2-1.3); Total Protein 6.3 g/dL (6.3-8.2)
[2020-06-28 11:40] LABS: Basophils # (A) 0.1 k/uL (0-0.2); Basophils % (A) 1 %; Eosinophils % (A) 0 %; HCT 40.1 % (34.0-46.0); HGB 12.6 gm/dL (11.4-16.0); Lymphocytes # (A) 0.5 k/uL (1.0-4.8); Lymphocytes % (A) 6 %; MCH 29.9 pg (25.0-35.0); MCHC 31.3 g/dL (31.0-37.0); MCV 95.4 fL (80.0-100.0); Mean Platelet Volume 9.4; Monocytes # (A) 0.4 k/uL (0-1.0); Monocytes % (A) 4 %; Neutrophils # (A) 8.7 k/uL (1.3-7.7); Neutrophils % (A) 89 %; Platelet Count 204 k/uL (150-450); RBC 4.21 m/uL (3.80-5.40); RDW 13.3 % (11.5-15.5); WBC 9.7 k/uL (3.8-10.6)
[2020-06-28 11:45] LABS: Glucose,Whole Blood 191 mg/dL (75-99)
[2020-06-28 12:32] LABS: C Reactive Protein 2.2 mg/dL (<1.0)
--- NOTE | 2020-06-28 14:32 | P.PN ---
Subjective Progress Note Date: 06/28/20 This is a 70-year-old female patient of Dr. King with past medical history of mild intermittent asthma, hypertension, Parkinson's, migraine headaches, hypothyroidism, remote history of tobacco use. Patient states that she lives alone but her granddaughter has been staying with her. On Wednesday she started having weakness, fevers, cough and congestion as well as nausea. No sputum production. No chest pain. No abdominal pain or diarrhea. Patient presented to [facility] emergency center for evaluation. She was found to be afebrile, heart rate 94, blood pressure 142/80, pulse ox 95% on room air. EKG was a sinus rhythm with no acute ST changes. Blood work revealed sodium 135, potassium 4.0, chloride 104, CO2 24, BUN 18 and creatinine 0.6. Blood sugar 110. D-dimer 0.59. Calcium 8.2. AST 61 otherwise liver function test were normal. LDH 1432. C-reactive protein 5.3. Lactic acid 0.9. Coronavirus PCR detected. WBC 4.9, hemoglobin 14, platelet count 164. Chest x-ray reveals correlate for pneumonia. Patient admitted to the cardiac stepdown unit and pulmonary consult requested and discussed option of Remdesivir. Patient evaluated bedside , feels tightness and SOB on 2 L of oxygen . Bedside pulse ox was checked patient was saturating at 94% on 2 L. Patient is initiated on remdesivir the treatment by pulmonary. Patient denies any cough, diarrhea or change in bowel habits. She does feel fatigued. Continue Solu- Medrol 60 every 6. Continue Lovenox 40 subcu daily. We'll discontinue vancomycin as blood cultures are growing gram-negative staph. Continue treatment for COVID. Vital signs his temperature 97.9 pulse 60. Respiratory rate 22 blood pressure 141/72 oxygen saturation 94% on 1 L. PTOT evaluation ordered 06/27 patient evaluated bedside. Feels fatigue, has chills and body aches. Shortness of breath has improved.. Assessment patient's vitals temp of 98.4 pulse 79 respiratory rate 18 blood pressure 143/75 oxygenating at 96% on room air. Inflammation markers repeated. On remdesivir. Solu-Medrol reduced to dexamethasone 6 mg IV daily REVIEW OF SYSTEMS Constitutional: No fever, no chills, no night sweats. No weight change. Reports weakness, Reports fatigue Reports lethargy. No daytime sleepiness. EENT: No headache. No blurred vision or double vision, no loss of vision. No loss of Hearing, no ringing in the ears, no dizziness. No nasal drainage or congestion. No epistaxis. No sore throat. Lungs: Reports shortness of breath, Reports cough, no sputum production. No wheezing. Cardiovascular: No chest pain, no lower extremity edema. No palpitations. No paroxysmal nocturnal dyspnea. No orthopnea. No lightheadedness or dizziness. No syncopal episodes. Abdominal: No abdominal pain. Reports nausea, denies vomiting. No diarrhea. No constipation. No bloody or tarry stools. Reports loss of appetite. Genitourinary: No dysuria, increased frequency, urgency. No urinary retention. Musculoskeletal: Reports myalgias. Reports muscle weakness, no gait dysfunct ion, no frequent falls. No back pain. No neck pain. Integumentary: No wounds, no lesions. No rash or pruritus. No unusual bruising. No change in hair or nails. Neurologic: No aphasia. No facial droop. No change in mentation. No head injury. No headache. No paralysis. No paresthesia. Psychiatric: No depression. No anxiety. Endocrine: No abnormal blood sugars. Objective - Vital Signs Vital signs: Vital Signs Temp 98.4 F 06/28/20 12:19 Pulse 79 06/28/20 12:19 Resp 18 06/28/20 12:19 BP 143/75 06/28/20 12:19 Pulse Ox 96 06/28/20 12:19 Intake & Output 06/27/20 06/28/20 06/28/20 18:59 06:59 18:59 Intake Total 660 480 Balance 660 480 Weight 68 kg Intake: Oral 660 480 Other: Voiding Method Toilet Diaper # Voids 1 1 1 # Bowel Movements 0 - Exam PHYSICAL EXAMINATION Gen: This is a 70-year-old female. She is resting in bed and appears to be comfortable. She has on 2 L nasal cannula. No acute respiratory distress is noted. HEENT: Head is atraumatic, normocephalic. Pupils equal, round. Sclerae is anicteric. NECK: Supple. No JVD. No lymphadenopathy. No thyromegaly. LUNGS: Bilateral expiratory wheeze. No intercostal retractions. HEART: Regular rate and rhythm. No murmur. ABDOMEN: Soft. Bowel sounds are present. No masses. No tenderness. EXTREMITIES: No pedal edema. No calf tenderness. Dorsalis pedis palpable bilaterally. NEUROLOGICAL: Patient is awake, alert and oriented x3. Cranial nerves 2 through 12 are grossly intact. - Labs CBC & Chem 7: 06/28/20 10:54 06/28/20 10:30 Labs: Abnormal Lab Results - Last 24 Hours (Table) 06/27/20 06/27/20 06/28/20 Range/Units 16:53 20:13 06:25 Neutrophils # (1.3-7.7) k/uL Lymphocytes # (1.0-4.8) k/uL BUN (7-17) mg/dL Glucose (74-99) mg/dL POC Glucose (mg/dL) 148 H 194 H 195 H (75-99) mg/dL C-Reactive Protein (<1.0) mg/dL Albumin (3.5-5.0) g/dL 06/28/20 06/28/20 06/28/20 Range/Units 10:30 10:54 11:43 Neutrophils # 8.7 H (1.3-7.7) k/uL Lymphocytes # 0.5 L (1.0-4.8) k/uL BUN 20 H (7-17) mg/dL Glucose 199 H (74-99) mg/dL POC Glucose (mg/dL) 191 H (75-99) mg/dL C-Reactive Protein 2.2 H (<1.0) mg/dL Albumin 3.2 L (3.5-5.0) g/dL Microbiology - Last 24 Hours (Table) 06/26/20 18:42 Blood Culture - Preliminary Blood No Growth after 24 hours Assessment and Plan Plan: ASSESSMENT AND PLAN 1. Acute hypoxic respiratory failure secondary to Covid 19 pneumonia. Pulmonary medicine consult appreciated. Patient started on Remdesivir day #2/5, Solu-Medrol 60 mg IV every 6 hours switched to dexamethasone daily, Lovenox 40 mg subcu daily, vitamin supplements. Repeat inflammation markers ordered, if cleared by pulmonary patient can be discharged tomorrow 2. Mild intermittent asthma with exacerbation. Solu-Medrol discontinued initiated on dexamethasone, Atrovent inhaler 4 times daily, Symbicort twice daily, Singulair 10 mg at bedtime. Continues requiring 1 L of oxygen. 3. Hypertension. Continue verapamil 180 mg daily. 4. Hypothyroidism. Continue levothyroxine 25 g daily. 5. Recurrent depression and generalized anxiety disorder. Continue citalopram 40 mg daily, Xanax 1 mg twice daily as needed. 6. Bipolar disorder. Continue Neurontin 300 mg 3 times daily, trazodone 100 mg at bedtime. 7. Remote history of tobacco use. 8. History of alcohol abuse. 9. GI prophylaxis. Protonix 40 mg oral daily. 10. DVT prophylaxis. Lovenox 40 mg subcu daily. 11 generalized debility home with homecare. Patient can be discharged over weekend if cleared by pulmonary
[2020-06-28] MEDS: REMDESIVIR 100 MG in SODIUM CHLORIDE 0.9% 250 ML IVPB SCH (14:57)
[2020-06-28 16:50] LABS: Glucose,Whole Blood 138 mg/dL (75-99)
--- NOTE | 2020-06-28 16:55 | P.PN ---
Subjective Progress Note Date: 06/28/20 Principal diagnosis: Acute hypoxic respiratory failure secondary to acute COVID-19 pneumonia This is a 70-year-old female with history of multiple medical problems including mild asthma, hypertension, Parkinson's disease, hypothyroidism, remote smoking history, patient was seen in the ER with 1 week history of multiple constitutional symptoms including weakness, fatigue, fevers, cough, congestion, nausea, some vomiting, and intermittent diarrhea. As well as headaches. Pat chevy was evaluated in the ER, she was found to have positive PCR for wall virus. She had a relatively low d-dimer. Normal liver enzymes. Normal renal profile. Relatively normal CBC. Relatively normal electrolytes and renal profile. Elevated LDH of 1432, and C-reactive protein of 5.3. Chest x-ray on admission showed bilateral airspace disease. Patient requires oxygen at 3 L nasal cannula, and her O2 saturations 94%. Considering her presentation, I was asked to see her on consultation. After evaluating the patient, I recommended that we start the patient on REM. Patient was reevaluated today on 06/27/2020, feeling a bit better today, she is down to 1 L nasal cannula, and her O2 sats is 94%. Patient is receiving REM for her underlying COVID-19 pneumonia. Patient has shortness of breath with activity, intermittent cough, no fever, no chills, no hemoptysis and no chest pain. No labs were drawn today, labs from yesterday were reviewed, LDH was 1432 and C-reactive protein was 5.3. Pro-calcitonin was 0.22. Blood cultures are showing coagulase-negative staph, as these are suspected to be contaminated blood cultures, and the patient will not need to be on antibiotics. Patient was reevaluated today on 06/28/2020, patient is feeling better although she is a bit fatigued, shortness of breath didn't improve significantly. Patient is afebrile and her vital signs are stable, her O2 saturations 96% on room air. Patient is on REM, and she is also on Decadron. CBC is relatively normal. Blood sugar is 138. Liver enzymes are relatively normal. C-reactive protein is 2.2 Objective - Vital Signs Vital signs: Vital Signs Temp 98.2 F 06/28/20 15:16 Pulse 76 06/28/20 15:16 Resp 18 06/28/20 15:16 BP 126/60 06/28/20 15:16 Pulse Ox 96 06/28/20 15:16 Intake & Output 06/27/20 06/28/20 06/28/20 18:59 06:59 18:59 Intake Total 660 480 Balance 660 480 Weight 68 kg Intake: Oral 660 480 Other: Voiding Method Toilet Diaper # Voids 1 1 1 # Bowel Movements 0 - Exam Physical Exam: Revealed a 70-year-old female in no distress, on one liters nasal cannula. Head: Atraumatic normocephalic. HEENT:[Neck is supple.] [No neck masses.] [No thyromegaly.] [No JVD.] Chest: [Symmetrical chest expansion, crackles at the bases, no rhonchi and no wheezes. Cardiac Exam: [Normal S1 and S2, no S3 gallop, no murmur.] Abdomen: [Soft, nontender, no megaly, no rebound, no guarding, normal bowel sounds.] Extremities: [No clubbing, no edema, no cyanosis.] Neurological Exam: [No focal neurologic deficit.] Alert oriented 3. Psychiatric: Normal mood affect and normal mental status examination. Skin: No rashes. - Labs CBC & Chem 7: 06/28/20 10:54 06/28/20 10:30 Labs: Abnormal Lab Results - Last 24 Hours (Table) 06/27/20 06/27/20 06/28/20 Range/Units 16:53 20:13 06:25 Neutrophils # (1.3-7.7) k/uL Lymphocytes # (1.0-4.8) k/uL BUN (7-17) mg/dL Glucose (74-99) mg/dL POC Glucose (mg/dL) 148 H 194 H 195 H (75-99) mg/dL C-Reactive Protein (<1.0) mg/dL Albumin (3.5-5.0) g/dL 06/28/20 06/28/20 06/28/20 Range/Units 10:30 10:54 11:43 Neutrophils # 8.7 H (1.3-7.7) k/uL Lymphocytes # 0.5 L (1.0-4.8) k/uL BUN 20 H (7-17) mg/dL Glucose 199 H (74-99) mg/dL POC Glucose (mg/dL) 191 H (75-99) mg/dL C-Reactive Protein 2.2 H (<1.0) mg/dL Albumin 3.2 L (3.5-5.0) g/dL 06/28/20 Range/Units 16:48 Neutrophils # (1.3-7.7) k/uL Lymphocytes # (1.0-4.8) k/uL BUN (7-17) mg/dL Glucose (74-99) mg/dL POC Glucose (mg/dL) 138 H (75-99) mg/dL C-Reactive Protein (<1.0) mg/dL Albumin (3.5-5.0) g/dL Microbiology - Last 24 Hours (Table) 06/26/20 18:42 Blood Culture - Preliminary Blood No Growth after 24 hours Assessment and Plan Assessment: Impression: Acute hypoxic respiratory failure secondary to acute COVID-19 pneumonia History of mild intermittent asthma presently in active however the patient is on steroids. Benign essential hypertension. Hypothyroidism. History of depression and generalized anxiety disorder. History of bipolar disorder. Remote smoking history. Recommendation: Continue REM. Continue Lovenox Continue the COVID-19 cocktail. Continue Protonix. Continue bronchodilators. Continue methylprednisolone instead of Decadron. However will use 40 mg IV push every 12 hours. Continue Symbicort and albuterol. We will continue to follow. Time with Patient: Less than 30
[2020-06-28 20:18] LABS: Glucose,Whole Blood 196 mg/dL (75-99)
[2020-06-28] MEDS: MONTELUKAST 10 MG TAB PO SCH (21:01)
[2020-06-28] MEDS: traZODone HCL 100 MG TAB PO SCH (21:01)
[2020-06-28] MEDS: methylPREDNISolone SOD SUCCI 40 MG/ML 1 ML VIAL IV SCH (21:01)
[2020-06-29 04:58] LABS: Ferritin 665.1 ng/mL (10.0-291.0)
[2020-06-29] MEDS: SODIUM CHLORIDE 0.9% 1,000 ML IV SCH ×2 (05:14→23:22)
[2020-06-29 07:04] LABS: Glucose,Whole Blood 159 mg/dL (75-99)
[2020-06-29] MEDS: PANTOPRAZOLE 40 MG TABLET PO SCH (07:06)
[2020-06-29] MEDS: INSULIN ASPART (NovoLOG) 100 UNIT/ML VIAL SQ SCH ×4 (07:06→21:55)
[2020-06-29] MEDS: LEVOTHYROXINE 25 MCG TAB PO SCH (07:06)
[2020-06-29] MEDS: ALBUTEROL HFA INHALER INHALATION PRN ×3 (07:36→20:00)
[2020-06-29] MEDS: SYMBICORT 160-4.5 MCG INHALER INHALATION SCH ×2 (07:36→20:00)
[2020-06-29] MEDS: CHOLECALCIFEROL 25 MCG (1000 IU) TABLET PO SCH (08:09)
[2020-06-29] MEDS: ASPIRIN 81 MG PO SCH (08:09)
[2020-06-29] MEDS: CITALOPRAM HYDROBROMIDE 20 MG TAB PO SCH (08:10)
[2020-06-29] MEDS: ENOXAPARIN 40 MG/0.4 ML SYRINGE SQ SCH (08:10)
[2020-06-29] MEDS: GABAPENTIN 300 MG CAP PO SCH ×3 (08:11→21:55)
[2020-06-29] MEDS: methylPREDNISolone SOD SUCCI 40 MG/ML 1 ML VIAL IV SCH (08:11)
[2020-06-29] MEDS: ZINC SULFATE 220 MG CAP PO SCH (08:12)
[2020-06-29] MEDS: VERAPAMIL SR 180 MG TABLET.ER PO SCH (08:12)
[2020-06-29] MEDS: NAPROXEN 250 MG TAB PO SCH ×2 (08:12→22:08)
[2020-06-29] MEDS: ASCORBIC ACID 500 MG TAB PO SCH ×2 (08:20→21:55)
[2020-06-29] MEDS ORDERED: DEXAMETHASONE SOD PHOSPHATE 10 MG/ML 1 ML VIAL IV SCH (09:00)
--- NOTE | 2020-06-29 11:01 | P.PN ---
Subjective Progress Note Date: 06/29/20 This is a 70-year-old female patient of Dr. King with past medical history of mild intermittent asthma, hypertension, Parkinson's, migraine headaches, hypothyroidism, remote history of tobacco use. Patient states that she lives alone but her granddaughter has been staying with her. On Wednesday she started having weakness, fevers, cough and congestion as well as nausea. No sputum production. No chest pain. No abdominal pain or diarrhea. Patient presented to [facility] emergency center for evaluation. She was found to be afebrile, heart rate 94, blood pressure 142/80, pulse ox 95% on room air. EKG was a sinus rhythm with no acute ST changes. Blood work revealed sodium 135, potassium 4.0, chloride 104, CO2 24, BUN 18 and creatinine 0.6. Blood sugar 110. D-dimer 0.59. Calcium 8.2. AST 61 otherwise liver function test were normal. LDH 1432. C-reactive protein 5.3. Lactic acid 0.9. Coronavirus PCR detected. WBC 4.9, hemoglobin 14, platelet count 164. Chest x-ray reveals correlate for pneumonia. Patient admitted to the cardiac stepdown unit and pulmonary consult requested and discussed option of Remdesivir. Patient evaluated bedside , feels tightness and SOB on 2 L of oxygen . Bedside pulse ox was checked patient was saturating at 94% on 2 L. Patient is initiated on remdesivir the treatment by pulmonary. Patient denies any cough, diarrhea or change in bowel habits. She does feel fatigued. Continue Solu- Medrol 60 every 6. Continue Lovenox 40 subcu daily. We'll discontinue vancomycin as blood cultures are growing gram-negative staph. Continue treatment for COVID. Vital signs his temperature 97.9 pulse 60. Respiratory rate 22 blood pressure 141/72 oxygen saturation 94% on 1 L. PTOT evaluation ordered 06/28 patient evaluated bedside. Feels fatigue, has chills and body aches. Shortness of breath has improved.. Assessment patient's vitals temp of 98.4 pulse 79 respiratory rate 18 blood pressure 143/75 oxygenating at 96% on room ai r. Inflammation markers repeated. On remdesivir. Solu-Medrol reduced to dexamethasone 6 mg IV daily 06/29: Patient is evaluated at the bedside. She continues to have fatigue and body aches. Her shortness of breath has improved. Patient is pulse ox seen on room air at 5% she has been afebrile, heart rate 66, respirations 16 blood pressure slighelevated 185/87. Patient has received a total of 4/5 remdesivir. States she is not ready to go home. She still is feeling well. REVIEW OF SYSTEMS Constitutional: No fever, no chills, no night sweats. No weight change. Reports weakness, Reports fatigue Reports lethargy. No daytime sleepiness. EENT: No headache. No blurred vision or double vision, no loss of vision. No loss of Hearing, no ringing in the ears, no dizziness. No nasal drainage or congestion. No epistaxis. No sore throat. Lungs: Reports shortness of breath, Reports cough, no sputum production. No wheezing. Cardiovascular: No chest pain, no lower extremity edema. No palpitations. No paroxysmal nocturnal dyspnea. No orthopnea. No lightheadedness or dizziness. No syncopal episodes. Abdominal: No abdominal pain. Reports nausea, denies vomiting. No diarrhea. No constipation. No bloody or tarry stools. Reports loss of appetite. Genitourinary: No dysuria, increased frequency, urgency. No urinary retention. Musculoskeletal: Reports myalgias. Reports muscle weakness, no gait dysfunction, no frequent falls. No back pain. No neck pain. Integumentary: No wounds, no lesions. No rash or pruritus. No unusual bruising. No change in hair or nails. Neurologic: No aphasia. No facial droop. No change in mentation. No head injury. No headache. No paralysis. No paresthesia. Psychiatric: No depression. No anxiety. Endocrine: No abnormal blood sugars. PHYSICAL EXAMINATION Gen: This is a 70-year-old female. She is resting in bed and appears to be comfortable. She has on 2 L nasal cannula. No acute respiratory distress is noted. HEENT: Head is atraumatic, normocephalic. Pupils equal, round. Sclerae is anicteric. NECK: Supple. No JVD. No lymphadenopathy. No thyromegaly. LUNGS: Bilateral expiratory wheeze. No intercostal retractions. HEART: Regular rate and rhythm. No murmur. ABDOMEN: Soft. Bowel sounds are present. No masses. No tenderness. EXTREMITIES: No pedal edema. No calf tenderness. Dorsalis pedis palpable bilaterally. NEUROLOGICAL: Patient is awake, alert and oriented x3. Cranial nerves 2 through 12 are grossly intact. ASSESSMENT AND PLAN 1. Acute hypoxic respiratory failure secondary to Covid 19 pneumonia. P monary medicine consult appreciated. Patient started on Remdesivir day #2/5, Solu-Medrol 60 mg IV every 6 hours switched to dexamethasone daily, Lovenox 40 mg subcu daily, vitamin supplements. Repeat inflammation markers ordered, if cleared by pulmonary patient can be discharged tomorrow 2. Mild intermittent asthma with exacerbation. Solu-Medrol discontinued initiated on dexamethasone, Atrovent inhaler 4 times daily, Symbicort twice daily, Singulair 10 mg at bedtime. Currently on room air 3. Hypertension. Continue verapamil 180 mg daily. 4. Hypothyroidism. Continue levothyroxine 25 g daily. 5. Recurrent depression and generalized anxiety disorder. Continue citalopram 40 mg daily, Xanax 1 mg twice daily as needed. 6. Bipolar disorder. Continue Neurontin 300 mg 3 times daily, trazodone 100 mg at bedtime. 7. Remote history of tobacco use. 8. History of alcohol abuse. 9. generalized debility home with homecare. 10. DVT prophylaxis. Lovenox 40 mg subcu daily. 11 GI prophylaxis. Protonix 40 mg oral daily. CODE STATUS: Full code Discharge plan: Possible discharge tomorrow if cleared by pulmonology Impression and plan of care have been directed as dictated by the signing physician. Sara Franks nurse practitioner acting as scribe for signing physician. Objective - Vital Signs Vital signs: Vital Signs Temp 97.6 F 06/29/20 08:00 Pulse 66 06/29/20 08:00 Resp 20 06/29/20 08:00 BP 185/87 06/29/20 08:00 Pulse Ox 95 06/29/20 08:00 Intake & Output 06/28/20 06/29/20 06/29/20 18:59 06:59 18:59 Intake Total 720 100 Balance 720 100 Weight 67.5 kg Intake: Oral 720 100 Other: Voiding Method Toilet Toilet Diaper Diaper # Voids 1 1 - Labs CBC & Chem 7: 06/28/20 10:54 06/28/20 10:30 Labs: Abnormal Lab Results - Last 24 Hours (Table) 06/28/20 06/28/20 06/28/20 Range/Units 10:30 10:54 11:43 Neutrophils # 8.7 H (1.3-7.7) k/uL Lymphocytes # 0.5 L (1.0-4.8) k/uL BUN 20 H (7-17) mg/dL Glucose 199 H (74-99) mg/dL POC Glucose (mg/dL) 191 H (75-99) mg/dL Ferritin 665.1 H (10.0-291.0) ng/mL C-Reactive Protein 2.2 H (<1.0) mg/dL Albumin 3.2 L (3.5-5.0) g/dL 06/28/20 06/28/20 06/29/20 Range/Units 16:48 20:15 07:02 Neutrophils # (1.3-7.7) k/uL Lymphocytes # (1.0-4.8) k/uL BUN (7-17) mg/dL Glucose (74-99) mg/dL POC Glucose (mg/dL) 138 H 196 H 159 H (75-99) mg/dL Ferritin (10.0-291.0) ng/mL C-Reactive Protein (<1.0) mg/dL Albumin (3.5-5.0) g/dL Microbiology - Last 24 Hours (Table) 06/25/20 15:33 Blood Culture Gram Stain - Final Blood Blood Culture - Final Staph hominis sub sp. hominis 06/25/20 15:33 Blood Culture Gram Stain - Final Blood Blood Culture - Final Staph hominis sub sp. hominis 06/26/20 18:42 Blood Culture - Preliminary Blood No Growth after 48 hours
[2020-06-29 12:06] LABS: Glucose,Whole Blood 222 mg/dL (75-99)
[2020-06-29] MEDS: REMDESIVIR 100 MG in SODIUM CHLORIDE 0.9% 250 ML IVPB SCH (14:30)
[2020-06-29 16:34] LABS: Glucose,Whole Blood 147 mg/dL (75-99)
--- NOTE | 2020-06-29 16:40 | P.PN ---
Subjective Progress Note Date: 06/29/20 Principal diagnosis: Acute hypoxic respiratory failure secondary to acute COVID-19 pneumonia This is a 70-year-old female with history of multiple medical problems including mild asthma, hypertension, Parkinson's disease, hypothyroidism, remote smoking history, patient was seen in the ER with 1 week history of multiple constitutional symptoms including weakness, fatigue, fevers, cough, congestion, nausea, some vomiting, and intermittent diarrhea. As well as headaches. Juana reece was evaluated in the ER, she was found to have positive PCR for wall virus. She had a relatively low d-dimer. Normal liver enzymes. Normal renal profile. Relatively normal CBC. Relatively normal electrolytes and renal profile. Elevated LDH of 1432, and C-reactive protein of 5.3. Chest x-ray on admission showed bilateral airspace disease. Patient requires oxygen at 3 L nasal cannula, and her O2 saturations 94%. Considering her presentation, I was asked to see her on consultation. After evaluating the patient, I recommended that we start the patient on REM. Patient was reevaluated today on 06/27/2020, feeling a bit better today, she is down to 1 L nasal cannula, and her O2 sats is 94%. Patient is receiving REM for her underlying COVID-19 pneumonia. Patient has shortness of breath with activity, intermittent cough, no fever, no chills, no hemoptysis and no chest pain. No labs were drawn today, labs from yesterday were reviewed, LDH was 1432 and C-reactive protein was 5.3. Pro-calcitonin was 0.22. Blood cultures are showing coagulase-negative staph, as these are suspected to be contaminated blood cultures, and the patient will not need to be on antibiotics. Patient was reevaluated today on 06/28/2020, patient is feeling better although she is a bit fatigued, shortness of breath didn't improve significantly. Patient is afebrile and her vital signs are stable, her O2 saturations 96% on room air. Patient is on REM, and she is also on Decadron. CBC is relatively normal. Blood sugar is 138. Liver enzymes are relatively normal. C-reactive protein is 2.2 Reevaluated today on 06/29/2020, patient is about the same, feeling better from the pulmonary perspective, remains tired, she is now on 2 L nasal cannula and her O2 sats is 95%. Patient is still receiving REM. Plan she remains on the COVID-19 cocktail. D-dimer was 0.56. Rest of the labs were basically unremarkable except for elevated blood sugar of 147. Objective - Vital Signs Vital signs: Vital Signs Temp 98.4 F 06/29/20 12:00 Pulse 79 06/29/20 12:00 Resp 18 06/29/20 14:00 BP 163/81 06/29/20 12:00 Pulse Ox 95 06/29/20 15:00 Intake & Output 06/28/20 06/29/20 06/29/20 18:59 06:59 18:59 Intake Total 720 650 Balance 720 650 Weight 67.5 kg Intake: Intake, IV Titration 300 Amount Sodium Chloride 0.9% 1, 300 000 ml @ 50 mls/hr IV . Q20H PENDING SALE TO [facility] Rx#:[id number] Oral 720 350 Other: Voiding Method Toilet Toilet Diaper Diaper # Voids 1 1 - Exam Physical Exam: Revealed a 70-year-old female in no distress, on 2 L nasal cannula with O2 saturation of 95% Head: Atraumatic normocephalic. HEENT:[Neck is supple.] [No neck masses.] [No thyromegaly.] [No JVD.] Chest: [Symmetrical chest expansion, crackles at the bases, no rhonchi and no wheezes. Cardiac Exam: [Normal S1 and S2, no S3 gallop, no murmur.] Abdomen: [Soft, nontender, no megaly, no rebound, no guarding, normal bowel sounds.] Extremities: [No clubbing, no edema, no cyanosis.] Neurological Exam: [No focal neurologic deficit.] Alert oriented 3. Psychiatric: Normal mood affect and normal mental status examination. Skin: No rashes. - Labs CBC & Chem 7: 06/28/20 10:54 06/28/20 10:30 Labs: Abnormal Lab Results - Last 24 Hours (Table) 06/28/20 06/28/20 06/28/20 Range/Units 10:30 16:48 20:15 POC Glucose (mg/dL) 138 H 196 H (75-99) mg/dL Ferritin 665.1 H (10.0-291.0) ng/mL 06/29/20 06/29/20 06/29/20 Range/Units 07:02 12:03 16:32 POC Glucose (mg/dL) 159 H 222 H 147 H (75-99) mg/dL Ferritin (10.0-291.0) ng/mL Microbiology - Last 24 Hours (Table) 06/25/20 15:33 Blood Culture Gram Stain - Final Blood Blood Culture - Final Staph hominis sub sp. hominis 06/25/20 15:33 Blood Culture Gram Stain - Final Blood Blood Culture - Final Staph hominis sub sp. hominis 06/26/20 18:42 Blood Culture - Preliminary Blood No Growth after 48 hours Assessment and Plan Assessment: Impression: Acute hypoxic respiratory failure secondary to acute COVID-19 pneumonia History of mild intermittent asthma presently in active however the patient is on steroids. Benign essential hypertension. Hypothyroidism. History of depression and generalized anxiety disorder. History of bipolar disorder. Remote smoking history. Recommendation: Continue REM. Continue Lovenox Continue the COVID-19 cocktail. Continue Protonix. Continue bronchodilators. Continue Decadron 6 mg by mouth daily Continue her usual bronchodilators for mild intermittent asthma We will clear the patient to go home tomorrow. Time with Patient: Less than 30
[2020-06-29 20:29] LABS: Glucose,Whole Blood 175 mg/dL (75-99)
[2020-06-29] MEDS: MONTELUKAST 10 MG TAB PO SCH (21:55)
[2020-06-29] MEDS: traZODone HCL 100 MG TAB PO SCH (21:55)
[2020-06-30] MEDS: LEVOTHYROXINE 25 MCG TAB PO SCH (05:59)
[2020-06-30 07:01] LABS: Glucose,Whole Blood 90 mg/dL (75-99)
[2020-06-30] MEDS: INSULIN ASPART (NovoLOG) 100 UNIT/ML VIAL SQ SCH ×2 (07:05→11:58)
[2020-06-30] MEDS: ASPIRIN 81 MG PO SCH (08:06)
[2020-06-30] MEDS: ENOXAPARIN 40 MG/0.4 ML SYRINGE SQ SCH (08:06)
[2020-06-30] MEDS: PANTOPRAZOLE 40 MG TABLET PO SCH (08:07)
[2020-06-30] MEDS: ASCORBIC ACID 500 MG TAB PO SCH (08:07)
[2020-06-30] MEDS: ZINC SULFATE 220 MG CAP PO SCH (08:07)
[2020-06-30] MEDS: CHOLECALCIFEROL 25 MCG (1000 IU) TABLET PO SCH (08:07)
[2020-06-30] MEDS: GABAPENTIN 300 MG CAP PO SCH ×2 (08:07→17:28)
[2020-06-30] MEDS: CITALOPRAM HYDROBROMIDE 20 MG TAB PO SCH (08:07)
[2020-06-30] MEDS: NAPROXEN 250 MG TAB PO SCH (08:07)
[2020-06-30] MEDS: VERAPAMIL SR 180 MG TABLET.ER PO SCH (08:30)
[2020-06-30] MEDS ORDERED: dexAMETHasone 2 MG TAB PO SCH (09:00)
[2020-06-30] MEDS: SYMBICORT 160-4.5 MCG INHALER INHALATION SCH (09:15)
[2020-06-30 10:09] LABS: HCT 38.3 % (37.2-46.3); HGB 12.6 g/dL (12.0-15.0); MCH 30.4 pg (27.0-32.0); MCHC 32.9 g/dL (32.0-37.0); MCV 92.5 fL (80.0-97.0); Mean Platelet Volume 12.7 fL (9.5-12.2); Platelet Count 245 X 10*3/uL (140-440); RBC 4.14 X 10*6/uL (4.10-5.20); RDW 12.4 % (11.5-14.5); WBC 7.53 X 10*3/uL (4.50-10.00)
--- NOTE | 2020-06-30 10:57 | P.DS ---
Providers Date of admission: 06/25/20 18:41 Attending physician: Mckinley Spring MD Consults: 06/25/20 18:53 Consult Physician Routine Consulting Provider: Miller Sampson Consult Reason/Comments: COVID; Hypoxia Do you want consulting provider notified?: Yes Primary care physician: Akash King [facility] Hospital Course: This is a 70-year-old female patient of Dr. King with past medical history of mild intermittent asthma, hypertension, Parkinson's, migraine headaches, hypothyroidism, remote history of tobacco use. Patient states that she lives alone but her granddaughter has been staying with her. On Wednesday she started having weakness, fevers, cough and congestion as well as nausea. No sputum production. No chest pain. No abdominal pain or diarrhea. Patient presented to [facility] emergency center for evaluation. She was found to be afebrile, heart rate 94, blood pressure 142/80, pulse ox 95% on room air. EKG was a sinus rhythm with no acute ST changes. Blood work revealed sodium 135, potassium 4.0, chloride 104, CO2 24, BUN 18 and creatinine 0.6. Blood sugar 110. D-dimer 0.59. Calcium 8.2. AST 61 otherwise liver function test were normal. LDH 1432. C-reactive protein 5.3. Lactic acid 0.9. Coronavirus PCR detected. WBC 4.9, hemoglobin 14, platelet count 164. Chest x-ray reveals correlate for pneumonia. Patient admitted to the cardiac stepdown unit and pulmonary consult requested and discussed option of Remdesivir. Patient evaluated bedside , feels tightness and SOB on 2 L of oxygen . Bedside pulse ox was checked patient was saturating at 94% on 2 L. Patient is initiated on remdesivir the treatment by pulmonary. Patient denies any cough, diarrhea or change in bowel habits. She does feel fatigued. Continue Solu- Medrol 60 every 6. Continue Lovenox 40 subcu daily. We'll discontinue vancomycin as blood cultures are growing gram-negative staph. Continue treatment for COVID. Vital signs his temperature 97.9 pulse 60. Respiratory rate 22 blood pressure 141/72 oxygen saturation 94% on 1 L. PTOT evaluation ordered 06/28 patient evaluated bedside. Feels fatigue, has chills and body aches. Shortness of breath has improved.. Assessment patient's vitals temp of 98.4 pulse 79 respiratory rate 18 blood pressure 143/75 oxygenating at 96% on room air. Inflammation markers repeated. On remdesivir. Solu-Medrol reduced to dexamethasone 6 mg IV daily 06/29: Patient is evaluated at the bedside. She continues to have fatigue and body aches. Her shortness of breath has improved. Patient is pulse ox seen on room air at 95% she has been afebrile, heart rate 66, respirations 16 blood pressure slighelevated 185/87. Patient has received a total of 4/5 remdesivir. States she is not ready to go home. She still is feeling well. 06/30: She is evaluated at the bedside. She continues to have fatigue and body aches. Her shortness of breath has significant improved she is pulse ox 95% on 2 L. She remains afebrile. Patient is very reluctant to go home. She states that she is not feeling quite herself and does not think that she is ready to go home. After lengthy discussion regarding the effects of Covid and continued improvement patient will be evaluated for the need of oxygen at home prior to discharge. Patient was agreeable. We'll continue with vitamin C, zinc, vitamin D3, and steroids at home. Discharge diagnosis: 1. Acute hypoxic respiratory failure secondary to Covid 19 pneumonia. 2. Mild intermittent asthma with exacerbation. 3. Hypertension. 4. Hypothyroidism. 5. Recurrent depression and generalized anxiety disorder. 6. Bipolar disorder. 7. Remote history of tobacco use. 8. History of alcohol abuse. 9. generalized debility CODE STATUS: Full code Discharge disposition: Home Impression and plan of care have been directed as dictated by the signing physician. Sara Franks nurse practitioner acting as scribe for signing physician. Cc: Dr. King Patient Condition at Discharge: Serious Plan - Discharge Summary Discharge Rx Participant: No New Discharge Prescriptions: New Zinc Sulfate [Orazinc] 220 mg PO DAILY cap Ascorbic Acid [Vitamin C] 500 mg PO BID tab Cholecalciferol [Vitamin D3 (25 Mcg = 1000 Iu)] 125 mcg PO DAILY tablet dexAMETHasone ORAL [Hexadrol] 4 mg PO DAILY #10 tab Continue Citalopram Hydrobromide [CeleXA] 40 mg PO DAILY Nitroglycerin Sl Tabs [Nitrostat] 0.4 mg SUBLINGUAL Q5M PRN PRN Reason: Chest Pain Aspirin [Adult Low Dose Aspirin EC] 81 mg PO DAILY Gabapentin [Neurontin] 300 mg PO TID Levothyroxine Sodium 25 mcg PO DAILY Montelukast Sodium [Singulair] 10 mg PO HS Naproxen 500 mg PO BID PRN PRN Reason: Pain ALPRAZolam [Xanax] 1 mg PO BID PRN PRN Reason: Anxiety Meclizine HCl 25 mg PO BID PRN PRN Reason: Vertigo traZODone HCL 100 mg PO HS Verapamil HCl [Verapamil ER] 180 mg PO DAILY Discharge Medication List Citalopram Hydrobromide [CeleXA] 40 mg PO DAILY 12/07/13 [History] Aspirin [Adult Low Dose Aspirin EC] 81 mg PO DAILY 11/22/17 [History] Nitroglycerin Sl Tabs [Nitrostat] 0.4 mg SUBLINGUAL Q5M PRN 11/22/17 [History] ALPRAZolam [Xanax] 1 mg PO BID PRN 06/03/20 [History] Gabapentin [Neurontin] 300 mg PO TID 06/03/20 [History] Levothyroxine Sodium 25 mcg PO DAILY 06/03/20 [History] Meclizine HCl 25 mg PO BID PRN 06/03/20 [History] Montelukast Sodium [Singulair] 10 mg PO HS 06/03/20 [History] Naproxen 500 mg PO BID PRN 06/03/20 [History] Verapamil HCl [Verapamil ER] 180 mg PO DAILY 06/03/20 [History] traZODone HCL 100 mg PO HS 06/03/20 [History] Ascorbic Acid [Vitamin C] 500 mg PO BID tab 06/30/20 [Rx] Cholecalciferol [Vitamin D3 (25 Mcg = 1000 Iu)] 125 mcg PO DAILY tablet 06/30/20 [Rx] Zinc Sulfate [Orazinc] 220 mg PO DAILY cap 06/30/20 [Rx] dexAMETHasone ORAL [Hexadrol] 4 mg PO DAILY #10 tab 06/30/20 [Rx] Follow up Appointment(s)/Referral(s): [facility], [NON-STAFF] - Akash King MD [Primary Care Provider] - 1-2 days
[2020-06-30 11:12] LABS: Basophils # (A) 0.02 X 10*3/uL (0.00-0.10); Basophils % (A) 0.3 %; Eosinophils # (A) 0 X 10*3/uL (0.04-0.35); Eosinophils % (A) 0 %; Lymphocytes # (A) 1.31 X 10*3/uL (0.90-5.00); Lymphocytes % (A) 17.4 %; Monocytes # (A) 0.71 X 10*3/uL (0.20-1.00); Monocytes % (A) 9.4 %; Neutrophils # (A) 5.23 X 10*3/uL (1.80-7.70); Neutrophils % (A) 69.4 %
[2020-06-30 11:28] LABS: African American GFR (CKD) 108.5 (60.0-200.0); Anion Gap 8.7 mmol/L (4.00-12.00); BUN/Creat Ratio 31.67 Ratio (12.00-20.00); Calcium 8.5 mg/dL (8.7-10.3); Carbon Dioxide 28.3 mmol/L (21.6-31.8); Non-African American GFR(CKD) 93.7 (60.0-200.0); Potassium 4.2 mmol/L (3.5-5.5)
[2020-06-30 11:35] LABS: Glucose,Whole Blood 112 mg/dL (75-99)
[2020-06-30] MEDS: REMDESIVIR 100 MG in SODIUM CHLORIDE 0.9% 250 ML IVPB SCH (14:48)
[2020-06-30 15:16] VITALS: BP 150/80; PULSE 63; RESP 19; TEMP 98.3
[2020-06-30 17:05] LABS: Glucose,Whole Blood 147 mg/dL (75-99)
== END 2020-06-30 18:10 | disposition home health service (06) | DRG 177 ==
LOC: EC 14:25 → 3SCARD 18:41 → 6NMEDSUR 06-29 16:08
PROVIDERS: ADMIT Internal Medicine; ATTEND Internal Medicine
PROC: XW033E5 Introduction of Remdesivir Anti-infective into Peripheral Vein, Percutaneous Approach, New Technology Group 5 (ICD-10-PCS; principal; 2020-06-25)
DX: U07.1 COVID-19 (principal); J12.82 Pneumonia due to coronavirus disease 2019; J96.01 Acute respiratory failure with hypoxia; J45.21 Mild intermittent asthma with (acute) exacerbation; E03.9 Hypothyroidism, unspecified; F31.9 Bipolar disorder, unspecified; F41.1 Generalized anxiety disorder; G20 Parkinson's disease; F10.21 Alcohol dependence, in remission; I10 Essential (primary) hypertension; R53.81 Other malaise; Z79.82 Long term (current) use of aspirin; Z79.890 Hormone replacement therapy; Z79.899 Other long term (current) drug therapy; Z80.1 Family history of malignant neoplasm of trachea, bronchus and lung; Z82.49 Family history of ischemic heart disease and other diseases of the circulatory system; Z87.891 Personal history of nicotine dependence; Z90.710 Acquired absence of both cervix and uterus; Z91.81 History of falling; Z88.5 Allergy status to narcotic agent; Z98.890 Other specified postprocedural states
CPT/HCPCS: 36415; 71045; 80048; 80053; 82565; 82728; 83605; 83615; 83735; 84145; 85025; 85379; 85610; 85730; 86140; 87040; 87077; 87186; 87635; 93005; 94640; 94760; 96374; 99285

== ENCOUNTER 2022-07-01 11:18 | Observation (INO) | payer MEDICARE, OTHER ==
[2022-07-01] MEDS ORDERED: SODIUM CHLORIDE 0.9% 500 ML 500 ML IV ONE (11:56)
[2022-07-01] MEDS ORDERED: ASPIRIN 81 MG PO STA (11:56)
[2022-07-01] MEDS ORDERED: MECLIZINE 12.5 MG TAB PO STA (11:56)
[2022-07-01 12:00] LABS: Partial Thromboplastin Time 26.8 sec (22.0-30.0); Prothrombin Time 10.7 sec (9.0-12.0)
[2022-07-01 12:05] LABS: Basophils # (A) 0.1 k/uL (0-0.2); Basophils % (A) 1 %; Eosinophils # (A) 0.3 k/uL (0-0.7); Eosinophils % (A) 4 %; HCT 39.5 % (34.0-46.0); HGB 13.2 gm/dL (11.4-16.0); Lymphocytes # (A) 2.1 k/uL (1.0-4.8); Lymphocytes % (A) 29 %; MCH 30.8 pg (25.0-35.0); MCHC 33.4 g/dL (31.0-37.0); MCV 92.2 fL (80.0-100.0); Mean Platelet Volume 8.8; Monocytes # (A) 0.5 k/uL (0-1.0); Monocytes % (A) 7 %; Neutrophils # (A) 4.1 k/uL (1.3-7.7); Neutrophils % (A) 58 %; Platelet Count 214 k/uL (150-450); RBC 4.28 m/uL (3.80-5.40); RDW 13.4 % (11.5-15.5); WBC 7.1 k/uL (3.8-10.6)
--- NOTE | 2022-07-01 12:08 | XR ---
EXAMINATION TYPE: XR chest 2V DATE OF EXAM: 07/01/2022 COMPARISON: Chest x-ray June 25, 2020 HISTORY: Chest pain. TECHNIQUE: Frontal and lateral views of the chest are obtained. FINDINGS: There is chronic parenchymal changes bilaterally without suspicious focal air space opacit y, pleural effusion, or pneumothorax seen. Cardiomegaly is redemonstrated. Surgical change of bilater al humeral heads from prior rotator cuff surgery is redemonstrated. Cholecystectomy clips are again s een. IMPRESSION: Chronic changes and cardiomegaly without acute pulmonary process.
[2022-07-01 12:27] LABS: ALT 16 U/L (4-34); AST 20 U/L (14-36); African American GFR (CKD) >90 (>60 ml/min/1.73 sqM); Albumin 3.8 g/dL (3.5-5.0); Alkaline Phosphatase 65 U/L (38-126); Anion Gap 8 mmol/L; Blood Urea Nitrogen 20 mg/dL (7-17); Calcium 8.9 mg/dL (8.4-10.2); Carbon Dioxide 24 mmol/L (22-30); Chloride 107 mmol/L (98-107); Glucose 106 mg/dL (74-99); Magnesium 1.9 mg/dL (1.6-2.3); Non-African American GFR(CKD) 90 (>60 ml/min/1.73 sqM); Potassium 3.8 mmol/L (3.5-5.1); Sodium 139 mmol/L (137-145); Total Bilirubin 0.6 mg/dL (0.2-1.3); Total Protein 6.8 g/dL (6.3-8.2)
[2022-07-01] MEDS ORDERED: NITROGLYCERIN SL TABS 0.4 MG TAB SUBLINGUAL PRN (13:00)
--- NOTE | 2022-07-01 13:00 | ED ---
Dizziness HPI - General Chief Complaint: Dizziness Stated Complaint: dizziness Time Seen by Provider: 07/01/22 11:43 Source: patient, RN notes reviewed Mode of arrival: ambulatory Limitations: no limitations - History of Present Illness Initial Comments: 72-year-old female presents emergency Department with chief complaint of dizziness, lightheadedness, chest pain. Patient states she woke up, sat up states that she did not feel well. Patient states she started having left-sided chest pain felt like she did not pass out felt dizzy/lightheaded. Patient states she is scheduled for monitoring, heart cath from her special duty nurse. Patient denies any denies any. Chills no cold-like symptoms states that she did have some nausea without emesis. No focal weakness. - Related Data Home Medications Medication Instructions Recorded Confirmed Citalopram Hydrobromide [CeleXA] 40 mg PO DAILY 12/07/13 06/25/20 Aspirin [Adult Low Dose Aspirin EC] 81 mg PO DAILY 11/22/17 06/25/20 Nitroglycerin Sl Tabs [Nitrostat] 0.4 mg SUBLINGUAL Q5M PRN 11/22/17 06/25/20 ALPRAZolam [Xanax] 1 mg PO BID PRN 06/03/20 06/25/20 Gabapentin [Neurontin] 300 mg PO TID 06/03/20 06/25/20 Levothyroxine Sodium 25 mcg PO DAILY 06/03/20 06/25/20 Meclizine HCl 25 mg PO BID PRN 06/03/20 06/25/20 Montelukast Sodium [Singulair] 10 mg PO HS 06/03/20 06/25/20 Naproxen 500 mg PO BID PRN 06/03/20 06/25/20 Verapamil HCl [Verapamil ER] 180 mg PO DAILY 06/03/20 06/25/20 traZODone HCL 100 mg PO HS 06/03/20 06/25/20 Previous Rx's Medication Instructions Recorded Ascorbic Acid [Vitamin C] 500 mg PO BID tab 06/30/20 Cholecalciferol [Vitamin D3 (25 125 mcg PO DAILY tablet 06/30/20 Mcg = 1000 Iu)] Zinc Sulfate [Orazinc] 220 mg PO DAILY cap 06/30/20 dexAMETHasone ORAL [Hexadrol] 4 mg PO DAILY #10 tab 06/30/20 Allergies Allergy/AdvReac Type Severity Reaction Status Date / Time hydrocodone bitartrate AdvReac Nausea & Verified 07/01/22 11:28 [From Vicodin] Vomiting Review of Systems ROS Statement: Those systems with pertinent positive or pertinent negative responses have been documented in the HPI. ROS Other: All systems not noted in ROS Statement are negative. Past Medical History Past Medical History: Asthma, Hypertension Additional Past Medical History / Comment(s): 08/14/14 Pt admitted to floor s/p laparoscopic hiatal hernia repair. with lysis of adhesions and partial fundlopathy. Other HX: PARKINSONS, MIGRAINES, ASTHMA (NO MEDS), HIATAL HERNIA., STATES HX OF FALLS USES CANE AND WALKER. 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 History of Any Multi-Drug Resistant Organisms: None Reported Past Surgical History: Cholecystectomy, Hysterectomy, Orthopedic Surgery Additional Past Surgical History / Comment(s): 08/14/14 Laparoscopic hiatal hernia repair with lysis of adhesions and partial fundlopathy, bilateral shoulder surgery, lt knee surgery and rt ankle surgery Past Anesthesia/Blood Transfusion Reactions: No Reported Reaction Past Psychological History: Anxiety, Bipolar Smoking Status: Former smoker Past Alcohol Use History: None Reported Past Drug Use History: None Reported - Past Family History Father Family Medical History: Cancer Additional Family Medical History / Comment(s): lung Mother Family Medical History: Deep Vein Thrombosis (DVT) Additional Family Medical History / Comment(s): Crohns General Exam Limitations: no limitations General appearance: alert, in no apparent distress Head exam: Present: atraumatic, normocephalic, normal inspection Eye exam: Present: normal appearance, PERRL, EOMI. Absent: scleral icterus, c onjunctival injection, periorbital swelling Neck exam: Present: normal inspection. Absent: tenderness, meningismus, lymphadenopathy Respiratory exam: Present: normal lung sounds bilaterally. Absent: respiratory distress, wheezes, rales, rhonchi, stridor Cardiovascular Exam: Present: regular rate, normal rhythm, normal heart sounds. Absent: systolic murmur, diastolic murmur, rubs, gallop, clicks Extremities exam: Present: normal inspection, full ROM, normal capillary refill. Absent: tenderness, pedal edema, joint swelling, calf tenderness Neurological exam: Present: alert, oriented X3, CN II-XII intact, reflexes normal. Absent: motor sensory deficit Skin exam: Present: warm, dry, intact, normal color. Absent: rash Course Vital Signs 07/01/22 07/01/22 07/01/22 11:20 11:43 12:00 Temperature 98.5 F Pulse Rate 81 78 66 Pulse Rate [ 81 Packager Hand ] Respiratory 20 17 18 Rate Blood Pressure 183/82 156/74 137/70 O2 Sat by Pulse 95 95 98 Oximetry 07/01/22 12:31 Temperature Pulse Rate 71 Pulse Rate [ Packager Hand ] Respiratory 20 Rate Blood Pressure 146/81 O2 Sat by Pulse 100 Oximetry EKG Findings - EKG Comments: EKG Findings:: EKG for 11:31 sinus rhythm with rate of 75 ND 162 QRS 97 QT/QTC 379/408 - EKG Results: EKG: interpreted by ARTURO Medical Decision Making - Medical Decision Making Was pt. sent in by a medical professional or institution (, PA, SPECIAL POPULATION PARAPROFESSIONAL, urgent care, hospital, or assisted...) When possible be specific @ -[No] Did you speak to anyone other than the patient for history (EMS, parent, family, police, friend...)? What history was obtained from this source @ -[No] Did you review nursing and triage notes (agree or disagree)? Why? @ -[I reviewed and agree with nursing and triage notes] Were old charts reviewed (outside hosp., previous admission, EMS record, old EKG, old radiological studies, urgent care reports/EKG's, assisted records)? Report findings @ -[Reviewed prior EKG, CBC, comp] Differential Diagnosis (chest pain, altered mental status, abdominal pain women, abdominal pain men, vaginal bleeding, weakness, fever, dyspnea, syncope, headache, dizziness, GI bleed, back pain, seizure, CVA, palpatations, mental health, musculoskeletal)? @ -[Differential Chest Pain: Stable Angina, Unstable Angina, STEMI, NSTEMI Aortic Dissection, Pneumothorax, Musculoskeletal, Esophageal Spasm GERD, Cholecystitis, Pancreatitis, Zoster, this is not meant to be an all-inclusive list. EKG interpreted by me (3pts min.). @ -[As above] X-rays interpreted by me (1pt min.). @ -[Chest x-ray shows no acute process CT interpreted by me (1pt min.). @ -[None done] U/S interpreted by me (1pt. min.). @ -[None done] What testing was considered but not performed or refused? (CT, X-rays, U/S, labs)? Why? @ -[None] What meds were considered but not given or refused? Why? @ -[None] Did you discuss the management of the patient with other professionals (professionals i.e. , PA, SPECIAL POPULATION PARAPROFESSIONAL, lab, RT, psych nurse, social media sr strategy manager, manpower development specialist manager, teacher, forest fire officer, case liner)? Give summary @ -[Dr. arroyo for admission with cardiology consult, repeat troponin, and below to her extremities] Was smoking cessation discussed for >3mins.? @ -[No] Was critical care preformed (if so, how long)? @ -[No] Were there social determinants of health that impacted care today? How? (Homelessness, low income, unemployed, alcoholism, drug addiction, transportation, low edu. Level, literacy, decrease access to med. care, retirement, rehab)? @ -[No] Was there de-escalation of care discussed even if they declined (Discuss DNR or withdrawal of care, Hospice)? DNR status @ -[No] What co-morbidities impacted this encounter? (DM, HTN, Smoking, COPD, CAD, Cancer, CVA, ARF, Chemo, Hep., AIDS, mental health diagnosis, sleep apnea, morbid obesity)? @ -[Hypertension hyperlipidemia] Was patient admitted / discharged? Hospital course, mention meds given and route, prescriptions, significant lab abnormalities, going to OR and other pertinent info. @ -[Admitted patient presented for left sided chest pain, dizziness, lightheadedness. No sort of bizarre reveal any acute findings. She is scheduled for heart cath per patient she'll be admitted for cardiology evaluation] Undiagnosed new problem with uncertain prognosis? @ -[No] Drug Therapy requiring intensive monitoring for toxicity (Heparin, Nitro, Insulin, Cardizem)? @ -[No] Were any procedures done? @ -[No] Diagnosis/symptom? @ -[Chest pain, lightheadedness] Acute, or Chronic, or Acute on Chronic? @ -Acute Uncomplicated (without systemic symptoms) or Complicated (systemic symptoms)? @ -[complicated Side effects of treatment? @ -[No] Exacerbation, Progression, or Severe Exacerbation? @ -[No] Poses a threat to life or bodily function? How? (Chest pain, [place], [place], pneumonia, PE, COPD, DKA, ARF, appy, cholecystitis, CVA, Diverticulitis, Homicidal, Suicidal, threat to staff... and all critical care pts) @ -[yes patient has chest pain can cause cardiac arrest] - Lab Data Result diagrams: 07/01/22 11:37 07/01/22 11:33 Lab Results 07/01/22 07/01/22 07/01/22 Range/Units 11:33 11:33 11:33 WBC (3.8-10.6) k/uL RBC (3.80-5.40) m/uL Hgb (11.4-16.0) gm/dL Hct (34.0-46.0) % MCV (80.0-100.0) fL MCH (25.0-35.0) pg MCHC (31.0-37.0) g/dL RDW (11.5-15.5) % Plt Count (150-450) k/uL MPV Neutrophils % % Lymphocytes % % Monocytes % % Eosinophils % % Basophils % % Neutrophils # (1.3-7.7) k/uL Lymphocytes # (1.0-4.8) k/uL Monocytes # (0-1.0) k/uL Eosinophils # (0-0.7) k/uL Basophils # (0-0.2) k/uL PT 10.7 (9.0-12.0) sec INR 1.0 (<1.2) APTT 26.8 (22.0-30.0) sec Sodium 139 (137-145) mmol/L Potassium 3.8 (3.5-5.1) mmol/L Chloride 107 (98-107) mmol/L Carbon Dioxide 24 (22-30) mmol/L Anion Gap 8 mmol/L BUN 20 H (7-17) mg/dL Creatinine 0.66 (0.52-1.04) mg/dL Est GFR (CKD-EPI)AfAm >90 (>60 ml/min/1.73 sqM) Est GFR (CKD-EPI)NonAf 90 (>60 ml/min/1.73 sqM) Glucose 106 H (74-99) mg/dL Calcium 8.9 (8.4-10.2) mg/dL Magnesium 1.9 (1.6-2.3) mg/dL Total Bilirubin 0.6 (0.2-1.3) mg/dL AST 20 (14-36) U/L ALT 16 (4-34) U/L Alkaline Phosphatase 65 (38-126) U/L Troponin I <0.012 (0.000-0.034) ng/mL Total Protein 6.8 (6.3-8.2) g/dL Albumin 3.8 (3.5-5.0) g/dL 07/01/22 Range/Units 11:37 WBC 7.1 (3.8-10.6) k/uL RBC 4.28 (3.80-5.40) m/uL Hgb 13.2 (11.4-16.0) gm/dL Hct 39.5 (34.0-46.0) % MCV 92.2 (80.0-100.0) fL MCH 30.8 (25.0-35.0) pg MCHC 33.4 (31.0-37.0) g/dL RDW 13.4 (11.5-15.5) % Plt Count 214 (150-450) k/uL MPV 8.8 Neutrophils % 58 % Lymphocytes % 29 % Monocytes % 7 % Eosinophils % 4 % Basophils % 1 % Neutrophils # 4.1 (1.3-7.7) k/uL Lymphocytes # 2.1 (1.0-4.8) k/uL Monocytes # 0.5 (0-1.0) k/uL Eosinophils # 0.3 (0-0.7) k/uL Basophils # 0.1 (0-0.2) k/uL PT (9.0-12.0) sec INR (<1.2) APTT (22.0-30.0) sec Sodium (137-145) mmol/L Potassium (3.5-5.1) mmol/L Chloride (98-107) mmol/L Carbon Dioxide (22-30) mmol/L Anion Gap mmol/L BUN (7-17) mg/dL Creatinine (0.52-1.04) mg/dL Est GFR (CKD-EPI)AfAm (>60 ml/min/1.73 sqM) Est GFR (CKD-EPI)NonAf (>60 ml/min/1.73 sqM) Glucose (74-99) mg/dL Calcium (8.4-10.2) mg/dL Magnesium (1.6-2.3) mg/dL Total Bilirubin (0.2-1.3) mg/dL AST (14-36) U/L ALT (4-34) U/L Alkaline Phosphatase (38-126) U/L Troponin I (0.000-0.034) ng/mL Total Protein (6.3-8.2) g/dL Albumin (3.5-5.0) g/dL Disposition Clinical Impression: Chest pain, Dizziness Disposition: ADMITTED IP TO THIS HOSP Condition: Fair Referrals: Lynnette Duarte MD [Primary Care Provider] - 1-2 days Time of Disposition: 12:59
--- NOTE | 2022-07-01 13:53 | P.HPIM ---
History of Present Illness This is a pleasant 72 years old female with past medical history of hypertension. Patient was trying to get up this morning when she felt dizzy and lightheadedness, she felt like she is going to pass out but she did not, she took her medication and she felt better so she wants to [facility] clinic and that she felt the same and to check her blood pressure systolic was 198 as per patient. Also patient feels a lot some thin sitting on her chest about 10/10 when she came to emergency room with little dyspnea or get into the back States that she supposed to follow-up with her toe stripper on 07/23 for stress test and 08/05. Echocardiogram. Her toe stripper is Dr. Calvin Also she states that's her PCP referred her to neurologist cole Terrazas to rule out MS and she's having tremor, weakness or numbness in her lower extremity and have history of sciatica, she says she had MRI, EEG and test for her lites as an outpatient. She has some nausea and denies other GI symptoms with vomiting. No diarrhea. Denies any urological symptoms, no urgency or change in frequency No recent weakness or numbness. But she has worsening symptoms as above. Vitas looks stable and patient is afebrile She had unremarkable labs including CBC, INR, BMP, liver enzymes and troponin. Chest x-ray: Chronic changes with no acute process, cardiomegaly. Patient started on aspirin 325 mg and normal saline Review of Systems Review of systems CONSTITUTIONAL: No fever, no malaise, no fatigue. HEENT: No recent visual problems or hearing problems. Denied any sore throat. CARDIOVASCULAR: No orthopnea, PND, no palpitations, no syncope. PULMONARY: No shortness of breath, no cough, no hemoptysis. GASTROINTESTINAL: No diarrhea, no nausea, no vomiting, no abdominal pain. Normoactive bowel sounds. NEUROLOGICAL: No headaches, no weakness, no numbness. HEMATOLOGICAL: Denies any bleeding or petechiae. GENITOURINARY: Denies any burning micturition, frequency, or urgency. MUSCULOSKELETAL/RHEUMATOLOGICAL: Denies any joint pain, swelling, or any muscle pain. ENDOCRINE: Denies any polyuria or polydipsia. Past Medical History Past Medical History: Asthma, Hypertension Additional Past Medical History / Comment(s): 08/14/14 Pt admitted to floor s/p laparoscopic hiatal hernia repair. with lysis of adhesions and partial fundlopathy. Other HX: PARKINSONS, MIGRAINES, ASTHMA (NO MEDS), HIATAL HERNIA., STATES HX OF FALLS USES CANE AND WALKER. 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 History of Any Multi-Drug Resistant Organisms: None Reported Past Surgical History: Cholecystectomy, Hysterectomy, Orthopedic Surgery Additional Past Surgical History / Comment(s): 08/14/14 Laparoscopic hiatal hernia repair with lysis of adhesions and partial fundlopathy, bilateral shoulder surgery, lt knee surgery and rt ankle surgery Past Anesthesia/Blood Transfusion Reactions: No Reported Reaction Past Psychological History: Anxiety, Bipolar Smoking Status: Former smoker Past Alcohol Use History: None Reported Past Drug Use History: None Reported - Past Family History Father Family Medical History: Cancer Additional Family Medical History / Comment(s): lung Mother Family Medical History: Deep Vein Thrombosis (DVT) Additional Family Medical History / Comment(s): Crohns Medications and Allergies Home Medications Medication Instructions Recorded Confirmed Type Citalopram Hydrobromide [CeleXA] 40 mg PO DAILY 12/07/13 06/25/20 History Aspirin [Adult Low Dose Aspirin EC] 81 mg PO DAILY 11/22/17 06/25/20 History Nitroglycerin Sl Tabs [Nitrostat] 0.4 mg SUBLINGUAL Q5M PRN 11/22/17 06/25/20 History ALPRAZolam [Xanax] 1 mg PO BID PRN 06/03/20 06/25/20 History Gabapentin [Neurontin] 300 mg PO TID 06/03/20 06/25/20 History Levothyroxine Sodium 25 mcg PO DAILY 06/03/20 06/25/20 History Meclizine HCl 25 mg PO BID PRN 06/03/20 06/25/20 History Montelukast Sodium [Singulair] 10 mg PO HS 06/03/20 06/25/20 History Naproxen 500 mg PO BID PRN 06/03/20 06/25/20 History Verapamil HCl [Verapamil ER] 180 mg PO DAILY 06/03/20 06/25/20 History traZODone HCL 100 mg PO HS 06/03/20 06/25/20 History Ascorbic Acid [Vitamin C] 500 mg PO BID tab 06/30/20 Rx Cholecalciferol [Vitamin D3 (25 125 mcg PO DAILY tablet 06/30/20 Rx Mcg = 1000 Iu)] Zinc Sulfate [Orazinc] 220 mg PO DAILY cap 06/30/20 Rx dexAMETHasone ORAL [Hexadrol] 4 mg PO DAILY #10 tab 06/30/20 Rx Allergies Allergy/AdvReac Type Severity Reaction Status Date / Time hydrocodone bitartrate AdvReac Nausea & Verified 07/01/22 11:28 [From Vicodin] Vomiting Physical Exam Vitals: Vital Signs Temp Pulse Pulse Resp BP Pulse Ox 07/01/22 12:31 71 20 146/81 100 07/01/22 12:00 66 18 137/70 98 07/01/22 11:43 78 17 156/74 95 07/01/22 11:20 98.5 F 81 81 20 183/82 95 Intake and Output 06/30/22 07/01/22 07/01/22 22:59 06:59 14:59 Other: Weight 111.13 kg GENERAL: The patient is alert and oriented x3, not in any acute distress. Well developed, well nourished. HEENT: Pupils are round and equally reacting to light. EOMI. No scleral icterus. No conjunctival pallor. Normocephalic, atraumatic. No pharyngeal erythema. No thyromegaly. CARDIOVASCULAR: S1 and S2 present. No murmurs, rubs, or gallops. PULMONARY: Chest is clear to auscultation, no wheezing or crackles. ABDOMEN: Soft, nontender, nondistended, normoactive bowel sounds. No palpable organomegaly. MUSCULOSKELETAL: No joint swelling or deformity. EXTREMITIES: No cyanosis, clubbing, or pedal edema. NEUROLOGICAL: Gross neurological examination did not reveal any focal deficits. SKIN: No rashes. no petechiae. Results CBC & Chem 7: 07/01/22 11:37 07/01/22 11:33 Labs: Abnormal Lab Results - Last 24 Hours (Table) 07/01/22 Range/Units 11:33 BUN 20 H (7-17) mg/dL Glucose 106 H (74-99) mg/dL Assessment and Plan Assessment: Chest pain with dizziness, rule out cardiac causes Gradually progressive weakness and numbness in her lower extremity over months. Hypertension Hypothyroidism Depression Plan: We'll do serial troponins continue with aspirin Cardiology consult Neurology consult, check TSH and B12/Valdovinos check us of legs for leg pain Labs and medication were reviewed. Continue same treatment. Continue with symptomatic treatment. Resume home medication. Monitor labs and vitals. DVT and GI prophylaxis. Further recommendations as per clinical course of the patient DVT prophylaxis: Subcutaneous heparin GI Prophylaxis: Pepcid PT/OT: Pending Prognosis is guarded
--- NOTE | 2022-07-01 15:31 | US ---
EXAMINATION TYPE: US venous doppler duplex LE DATE OF EXAM: 07/01/2022 3:09 PM COMPARISON: NONE CLINICAL INDICATION: Female, 72 years old with history of leg swelling; No hx of DVT. Patient takes a spirin. SIDE PERFORMED: Bilateral TECHNIQUE: The lower extremity deep venous system is examined utilizing real time linear array sonog wilver with graded compression, doppler sonography and color-flow sonography. VESSELS IMAGED: Common Femoral Vein Deep Femoral Vein Greater Saphenous Vein * Femoral Vein Popliteal Vein Small Saphenous Vein * Proximal Calf Veins (* superficial vessels) Right Leg: *Limitations- patient could not tolerate compression of mid and distal femoral vein-color flow shown. No evidence of DVT. Left Leg: *Limitations- patient could not tolerate compression of distal femoral vein-color flow show n. No evidence of DVT. IMPRESSION: No evidence for deep vein thrombosis of the bilateral lower extremities. Limited evaluation of the mi d and distal femoral artery on the right and distal on the left.
[2022-07-01] MEDS ORDERED: ALPRAZolam 0.5 MG TAB PO PRN (18:39)
[2022-07-01] MEDS ORDERED: BUTALB/APAP/CAFF 50-325-40MG TAB PO PRN (18:39)
[2022-07-01] MEDS: GABAPENTIN 300 MG CAP PO SCH (20:51)
[2022-07-01] MEDS: HEPARIN SODIUM,PORCINE/PF 5,000 UNIT/0.5 ML SYRINGE SQ SCH (20:52)
[2022-07-01] MEDS: FAMOTIDINE 20 MG/2 ML VIAL IV SCH (20:52)
[2022-07-02] MEDS: LEVOTHYROXINE 50 MCG TAB PO SCH (05:48)
[2022-07-02 08:01] LABS: Basophils % (A) 1 %; Eosinophils # (A) 0.3 k/uL (0-0.7); Eosinophils % (A) 5 %; HCT 37.5 % (34.0-46.0); Lymphocytes # (A) 1.9 k/uL (1.0-4.8); Lymphocytes % (A) 31 %; MCH 30.9 pg (25.0-35.0); MCHC 32.1 g/dL (31.0-37.0); MCV 96.2 fL (80.0-100.0); Mean Platelet Volume 8.5; Monocytes # (A) 0.5 k/uL (0-1.0); Monocytes % (A) 8 %; Neutrophils # (A) 3.3 k/uL (1.3-7.7); Neutrophils % (A) 53 %; Platelet Count 202 k/uL (150-450); RBC 3.89 m/uL (3.80-5.40); WBC 6.3 k/uL (3.8-10.6)
[2022-07-02] MEDS ORDERED: ASPIRIN 325 MG TAB PO SCH (09:00)
[2022-07-02] MEDS: LOSARTAN-HCTZ 50-12.5 MG 1 EACH TAB PO SCH (09:05)
[2022-07-02] MEDS: CYANOCOBALAMIN 500 MCG TAB PO SCH (09:06)
[2022-07-02] MEDS: ASCORBIC ACID 500 MG TAB PO SCH (09:07)
[2022-07-02] MEDS: GABAPENTIN 300 MG CAP PO SCH ×3 (09:07→21:39)
[2022-07-02] MEDS: VERAPAMIL SR 180 MG TABLET.ER PO SCH (09:07)
[2022-07-02] MEDS: HEPARIN SODIUM,PORCINE/PF 5,000 UNIT/0.5 ML SYRINGE SQ SCH ×2 (09:07→21:39)
[2022-07-02] MEDS: ASPIRIN 81 MG PO SCH (09:07)
[2022-07-02] MEDS: CITALOPRAM HYDROBROMIDE 20 MG TAB PO SCH (09:07)
[2022-07-02] MEDS: CHOLECALCIFEROL 25 MCG (1000 IU) TABLET PO SCH (09:07)
[2022-07-02] MEDS ORDERED: REGADENOSON 0.4 MG/5 ML SYRINGE IV PRN (09:30)
[2022-07-02] MEDS ORDERED: AMINOPHYLLINE 500 MG/20 ML VIAL IV PRN (09:30)
[2022-07-02] MEDS ORDERED: CAFFEINE CITRATE 60 MG/3 ML VIAL IV PRN (09:30)
--- NOTE | 2022-07-02 09:40 | P.CRDCN ---
History of Present Illness History of present illness: HISTORY OF PRESENT ILLNESS: This is a 72-year-old female with a past medical history significant for mild nonobstructive coronary artery disease, hypertension, anxiety, and bipolar disorder. Patient follows in the office with Dr. Calvin. We have been asked to see the patient in consultation for chest pain. Patient examined at the bedside. Patient states yesterday morning she woke up from sleep and sat on the side of the bed as she usually does. She states as soon as she stood up she began to feel dizzy and lightheaded. She also reports feeling clammy. She states that she stood there for a minute and then started to feel better so she finished getting ready for the morning. She states that she went to [facility] yesterday for an appointment and was found to have uncontrolled blood pressure. Patient's blood pressure was found to be elevated with a systolic of 198. EMS was called. The patient states as soon as EMS arrived she began having pain in her chest. She states the pain was in the middle of her chest and went into her back. She also reports feeling short of breath. She states that she did not receive aspirin or nitro in route to the hospital. She does state that she received aspirin in the emergency room. The patient reports her pain has been constant since yesterday and is rating it a 10 out of 10 this morning. She states the pain is worse with deep inspiration. She also reports the pain is worse if she presses on her chest. She states she has not had pain like this in the past. * EKG reveals sinus mechanism with no signs of acute ischemia * Chest xray chronic changes and cardiomegaly without acute pulmonary process * Laboratory data: WBC 6.3. Hemoglobin 12.0. Platelet count 202. Sodium 139. Potassium 3.8. BUN 20. Creatinine 0.66. Troponin negative 3. * Current home cardiac medications include losartan-hydrochlorothiazide 100-25mg daily, verapamil 180 mg daily, aspirin 81 mg daily * Most recent echocardiogram obtained in February 2019 revealed ejection fraction 55%, mild aortic regurgitation, mild mitral regurgitation, mild tricuspid regurgitation * Cardiac catheterization history: November 2017 revealed mild coronary artery disease in the form of irregular ectatic plaque in the proximal left anterior descending artery. False-positive stress test. Medical management was recommended. REVIEW OF SYSTEMS: At the time of my exam: CONSTITUTIONAL: Denies fever or chills. HEENT: Denies blurred vision, vision changes, or eye pain. Denies hemoptysis CARDIOVASCULAR: Denies chest pain. Denies orthopnea. Denies PND. Denies palpitations RESPIRATORY: Denies shortness of breath. GASTROINTESTINAL: Denies abdominal pain. Denies nausea or vomiting. HEMATOLOGIC: Denies bleeding disorders. GENITOURINARY: Denies any blood in urine. SKIN: Denies pruitis. Denies rash. PHYSICAL EXAM: VITAL SIGNS: Reviewed. GENERAL: Well-developed in no acute distress. HEENT: Head is normocephalic. Pupils are equal, round. Sclerae anicteric. Mucous membranes of the mouth are moist. Neck supple. No JVD or thyromegaly LUNGS: Respirations even and unlabored. Lungs essentially clear to auscultation bilaterally. HEART: Regular rate and rhythm. S1 and S2 heard. ABDOMEN: Soft. Nondistended. Nontender. EXTREMITIES: Normal range of motion. No clubbing or cyanosis. Peripheral pulses intact. No lower extremity edema NEUROLOGIC: Awake and alert. Oriented x 3. ASSESSMENT: Chest pain, troponins negative 3 Hypertension, uncontrolled on admission, resolved Mild nonobstructive coronary artery disease, per cardiac catheterization in November 2017 Anxiety Depression Weakness in her lower extremities, being worked up outpatient by neurologist PLAN: An acute coronary event has been ruled out Obtain 2-D echo to assess cardiac structure and function Resume home cardiac medications Monitor blood pressure Check lipid panel Patient was given breakfast this morning so unable to obtain [place] scan today. Will perform Lexiscan tomorrow. Further recommendations pending patient course Nurse practitioner note has been reviewed by physician. Signing provider agrees with the documented findings, assessment, and plan of care. Past Medical History Past Medical History: Asthma, Hypertension Additional Past Medical History / Comment(s): 08/14/14 Pt admitted to floor s/p laparoscopic hiatal hernia repair. with lysis of adhesions and partial fundlopathy. Other HX: PARKINSONS, MIGRAINES, ASTHMA (NO MEDS), HIATAL HERNIA., STATES HX OF FALLS USES CANE AND WALKER. 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 History of Any Multi-Drug Resistant Organisms: None Reported Past Surgical History: Cholecystectomy, Hysterectomy, Orthopedic Surgery Additional Past Surgical History / Comment(s): 08/14/14 Laparoscopic hiatal hernia repair with lysis of adhesions and partial fundlopathy, bilateral shoulder surgery, lt knee surgery and rt ankle surgery Past Anesthesia/Blood Transfusion Reactions: No Reported Reaction Past Psychological History: Anxiety, Bipolar Smoking Status: Former smoker Past Alcohol Use History: None Reported Past Drug Use History: None Reported - Past Family History Father Family Medical History: Cancer Additional Family Medical History / Comment(s): lung Mother Family Medical History: Deep Vein Thrombosis (DVT) Additional Family Medical History / Comment(s): Crohns Medications and Allergies Home Medications Medication Instructions Recorded Confirmed Type Aspirin [Adult Low Dose Aspirin EC] 81 mg PO DAILY 11/22/17 07/01/22 History Nitroglycerin Sl Tabs [Nitrostat] 0.4 mg SUBLINGUAL Q5M PRN 11/22/17 07/01/22 History Gabapentin [Neurontin] 300 mg PO TID 06/03/20 07/01/22 History Naproxen 500 mg PO BID 06/03/20 07/01/22 History Verapamil HCl [Verapamil ER] 180 mg PO DAILY 06/03/20 07/01/22 History ALPRAZolam [Xanax] 0.5 mg PO DAILY PRN 07/01/22 07/01/22 History Ascorbic Acid [Vitamin C] 1,000 mg PO DAILY 07/01/22 07/01/22 History Butalb/APAP/Caff 50-325-40Mg 1 tab PO BID PRN 07/01/22 07/01/22 History [Fioricet 50-325-40] Cholecalciferol [Vitamin D3 (25 25 mcg PO DAILY 07/01/22 07/01/22 History Mcg = 1000 Iu)] Citalopram Hydrobromide [CeleXA] 20 mg PO DAILY 07/01/22 07/01/22 History Cyanocobalamin (Vitamin B-12) 3,000 mcg PO DAILY 07/01/22 07/01/22 History [Vitamin B-12] Ergocalciferol (Vitamin D2) 1,250 mcg PO MO 07/01/22 07/01/22 History [Drisdol (50,000 Iu)] Levothyroxine Sodium [Synthroid] 50 mcg PO DAILY 07/01/22 07/01/22 History Losartan/Hydrochlorothiazide 1 tab PO DAILY 07/01/22 07/01/22 History [Losartan-Hctz 100-25 mg Tab] rOPINIRole HCL [Requip] 0.25 mg PO BID 07/01/22 07/01/22 History Allergies Allergy/AdvReac Type Severity Reaction Status Date / Time hydrocodone bitartrate AdvReac Nausea & Verified 07/01/22 14:10 [From Vicodin] Vomiting Physical Exam Vitals: Vital Signs Temp Pulse Pulse Pulse Resp BP BP 07/02/22 07:20 98.3 F 62 16 136/68 07/02/22 02:51 98.4 F 69 17 115/76 07/01/22 19:46 97.8 F 64 18 145/83 07/01/22 16:20 97.7 F 58 L 18 169/69 07/01/22 15:49 97 F L 68 157/90 07/01/22 12:31 71 20 146/81 07/01/22 12:00 66 18 137/70 07/01/22 11:43 78 17 156/74 07/01/22 11:20 98.5 F 81 81 20 183/82 Pulse Ox 07/02/22 07:20 100 07/02/22 02:51 99 07/01/22 19:46 99 07/01/22 16:20 100 07/01/22 15:49 100 07/01/22 12:31 100 07/01/22 12:00 98 07/01/22 11:43 95 07/01/22 11:20 95 Intake and Output 07/01/22 07/02/22 07/02/22 22:59 06:59 14:59 Intake Total 222 Balance 222 Intake: Oral 222 Other: # Voids 2 1 Results 07/02/22 07:10 07/01/22 11:33 Cardiac Enzymes 07/01/22 07/01/22 07/01/22 Range/Units 11:33 11:33 15:21 AST 20 (14-36) U/L Troponin I <0.012 <0.012 (0.000-0.034) ng/mL 07/01/22 Range/Units 18:16 AST (14-36) U/L Troponin I <0.012 (0.000-0.034) ng/mL Coagulation 07/01/22 Range/Units 11:33 PT 10.7 (9.0-12.0) sec APTT 26.8 (22.0-30.0) sec CBC 07/01/22 07/02/22 Range/Units 11:37 07:10 WBC 7.1 6.3 (3.8-10.6) k/uL RBC 4.28 3.89 (3.80-5.40) m/uL Hgb 13.2 12.0 (11.4-16.0) gm/dL Hct 39.5 37.5 (34.0-46.0) % Plt Count 214 202 (150-450) k/uL Comprehensive Metabolic Panel 07/01/22 Range/Units 11:33 Sodium 139 (137-145) mmol/L Potassium 3.8 (3.5-5.1) mmol/L Chloride 107 (98-107) mmol/L Carbon Dioxide 24 (22-30) mmol/L BUN 20 H (7-17) mg/dL Creatinine 0.66 (0.52-1.04) mg/dL Glucose 106 H (74-99) mg/dL Calcium 8.9 (8.4-10.2) mg/dL AST 20 (14-36) U/L ALT 16 (4-34) U/L Alkaline Phosphatase 65 (38-126) U/L Total Protein 6.8 (6.3-8.2) g/dL Albumin 3.8 (3.5-5.0) g/dL Current Medications Generic Name Dose Route Start Last Admin Trade Name Freq PRN Reason Stop Dose Admin Acetaminophen/Butalbital/Caffeine 1 each 07/01/22 18:39 Butalb/Apap/Caff 50-325-40mg Tab PO BID PRN Migraine Headache Alprazolam 0.5 mg 07/01/22 18:39 Alprazolam 0.5 Mg Tab PO DAILY PRN Anxiety Ascorbic Acid 1,000 mg 07/02/22 09:00 Ascorbic Acid 500 Mg Tab PO DAILY [facility] Aspirin 325 mg 07/02/22 09:00 Aspirin 325 Mg Tab PO DAILY [facility] Cholecalciferol 25 mcg 07/02/22 09:00 Cholecalciferol 25 Mcg (1000 Iu) Tablet PO DAILY [facility] Citalopram Hydrobromide 20 mg 07/02/22 09:00 Citalopram Hydrobromide 20 Mg Tab PO DAILY [facility] Cyanocobalamin 3,000 mcg 07/02/22 09:00 Cyanocobalamin 500 Mcg Tab PO DAILY [facility] Famotidine 20 mg 07/01/22 21:00 07/01/22 20:52 Famotidine 20 Mg/2 Ml Vial IV 20 mg Q12HR [facility] Administration Gabapentin 300 mg 07/01/22 22:00 07/01/22 20:51 Gabapentin 300 Mg Cap PO 300 mg TID [facility] Administration HCTZ/Losartan Potassium 2 each 07/02/22 09:00 Losartan-Hctz 50-12.5 Mg 1 Each Tab PO DAILY [facility] Heparin Sodium (Porcine) 5,000 unit 07/01/22 21:00 07/01/22 20:52 Heparin Sodium,Porcine/Pf 5,000 Unit/0.5 Ml Syringe SQ 5,000 unit Q12HR [facility] Administration Levothyroxine Sodium 50 mcg 07/02/22 06:30 07/02/22 05:48 Levothyroxine 50 Mcg Tab PO 50 mcg 0630 [facility] Administration Nitroglycerin 0.4 mg 07/01/22 13:00 Nitroglycerin Sl Tabs 0.4 Mg Tab SUBLINGUAL Q5M PRN Chest Pain Ropinirole HCl 0.25 mg 07/01/22 21:00 07/01/22 20:51 Ropinirole Hcl 0.25 Mg Tab PO 0.25 mg BID [facility] Administration Verapamil HCl 180 mg 07/02/22 09:00 Verapamil Sr 180 Mg Tablet.Er PO DAILY [facility] Intake and Output 07/01/22 07/02/22 07/02/22 22:59 06:59 14:59 Intake Total 222 Balance 222 Intake: Oral 222 Other: # Voids 2 1 07/02/22 07:10 07/01/22 11:33
[2022-07-02 10:01] LABS: African American GFR (CKD) 86 (>60 ml/min/1.73 sqM); Anion Gap 5 mmol/L; Blood Urea Nitrogen 17 mg/dL (7-17); Calcium 8.4 mg/dL (8.4-10.2); Carbon Dioxide 30 mmol/L (22-30); Chloride 104 mmol/L (98-107); Glucose 96 mg/dL (74-99); Non-African American GFR(CKD) 74 (>60 ml/min/1.73 sqM); Potassium 4.7 mmol/L (3.5-5.1); Sodium 139 mmol/L (137-145)
[2022-07-02] MEDS: FAMOTIDINE 20 MG/2 ML VIAL IV SCH ×2 (10:44→21:39)
--- NOTE | 2022-07-02 10:57 | P.CNNES ---
History of Present Illness Consult date: 07/02/22 Requesting physician: Nnamdi De La Paz Reason for Consult: dizziness, leg pareshtesia History of Present Illness: This is a 72-year-old woman with history of multiple sclerosis, Parkinson's disease, restless leg syndrome who presented emergency department to dizziness, lightheadedness and chest pain. Patient stated that that she's been feeling dizzy and lightheaded upon standing up for the last 1 month. She denies any diplopia, any difficulty swallowing, any difficulty getting her words out. She has been having some numbness in the left upper extremity and she knows that the around 9:30 PM according to patient but it seems that that she notified the ED team that she has left leg paresthesia she did not notify me. Notified me that this numbness tingling over the left upper extremity has been coming and going. Otherwise she denies any history of stroke. She states that she walks with a walker. She follows up with Dr. Montalvo's team and sees the physician virtual office assistant. She could not tell me what medication she is on but she stated that she was recently diagnosed with multiple sclerosis and Parkinson's disease as well as restless leg syndrome by the neurology team. I looked at the EMR and it does not seem to the patient is on Sinemet and or any medication for this report of Parkinson's disease. It seems that she is on ropinirole which can help with restless leg syndrome. Regarding this multiple sclerosis to see any medication that she is on and him not sure if she is on the IV infusion such as Ocrevus every 6 month. She stated that she had MRI of the brain by her neurologist about a month and half ago and could not tell me what was the findings. Some of the workup during his hospital visit consisted of: CBC with differential and chemistry panel seems unremarkable. Review of Systems Review of system: The 12 point system was reviewed and apparent positive and negative per HPI. Past Medical History Past Medical History: Asthma, Hypertension Additional Past Medical History / Comment(s): 08/14/14 Pt admitted to floor s/p laparoscopic hiatal hernia repair. with lysis of adhesions and partial fundlopathy. Other HX: PARKINSONS, MIGRAINES, ASTHMA (NO MEDS), HIATAL HERNIA., STATES HX OF FALLS USES CANE AND WALKER. 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 History of Any Multi-Drug Resistant Organisms: None Reported Past Surgical History: Cholecystectomy, Hysterectomy, Orthopedic Surgery Additional Past Surgical History / Comment(s): 08/14/14 Laparoscopic hiatal hernia repair with lysis of adhesions and partial fundlopathy, bilateral shoulder surgery, lt knee surgery and rt ankle surgery Past Anesthesia/Blood Transfusion Reactions: No Reported Reaction Past Psychological History: Anxiety, Bipolar Smoking Status: Former smoker Past Alcohol Use History: None Reported Past Drug Use History: None Reported - Past Family History Father Family Medical History: Cancer Additional Family Medical History / Comment(s): lung Mother Family Medical History: Deep Vein Thrombosis (DVT) Additional Family Medical History / Comment(s): Crohns Medications and Allergies Home Medications Medication Instructions Recorded Confirmed Type Aspirin [Adult Low Dose Aspirin EC] 81 mg PO DAILY 11/22/17 07/01/22 History Nitroglycerin Sl Tabs [Nitrostat] 0.4 mg SUBLINGUAL Q5M PRN 11/22/17 07/01/22 History Gabapentin [Neurontin] 300 mg PO TID 06/03/20 07/01/22 History Naproxen 500 mg PO BID 06/03/20 07/01/22 History Verapamil HCl [Verapamil ER] 180 mg PO DAILY 06/03/20 07/01/22 History ALPRAZolam [Xanax] 0.5 mg PO DAILY PRN 07/01/22 07/01/22 History Ascorbic Acid [Vitamin C] 1,000 mg PO DAILY 07/01/22 07/01/22 History Butalb/APAP/Caff 50-325-40Mg 1 tab PO BID PRN 07/01/22 07/01/22 History [Fioricet 50-325-40] Cholecalciferol [Vitamin D3 (25 25 mcg PO DAILY 07/01/22 07/01/22 History Mcg = 1000 Iu)] Citalopram Hydrobromide [CeleXA] 20 mg PO DAILY 07/01/22 07/01/22 History Cyanocobalamin (Vitamin B-12) 3,000 mcg PO DAILY 07/01/22 07/01/22 History [Vitamin B-12] Ergocalciferol (Vitamin D2) 1,250 mcg PO MO 07/01/22 07/01/22 History [Drisdol (50,000 Iu)] Levothyroxine Sodium [Synthroid] 50 mcg PO DAILY 07/01/22 07/01/22 History Losartan/Hydrochlorothiazide 1 tab PO DAILY 07/01/22 07/01/22 History [Losartan-Hctz 100-25 mg Tab] rOPINIRole HCL [Requip] 0.25 mg PO BID 07/01/22 07/01/22 History Allergies Allergy/AdvReac Type Severity Reaction Status Date / Time hydrocodone bitartrate AdvReac Nausea & Verified 07/01/22 14:10 [From Vicodin] Vomiting Physical Examination - Vital Signs Vital Signs: Vital Signs Temp Pulse Pulse Pulse Resp BP BP 07/02/22 08:34 16 07/02/22 07:20 98.3 F 62 16 136/68 07/02/22 02:51 98.4 F 69 17 115/76 07/01/22 19:46 97.8 F 64 18 145/83 07/01/22 16:20 97.7 F 58 L 18 169/69 07/01/22 15:49 97 F L 68 157/90 07/01/22 12:31 71 20 146/81 07/01/22 12:00 66 18 137/70 07/01/22 11:43 78 17 156/74 07/01/22 11:20 98.5 F 81 81 20 183/82 Pulse Ox 07/02/22 08:34 07/02/22 07:20 100 07/02/22 02:51 99 07/01/22 19:46 99 07/01/22 16:20 100 07/01/22 15:49 100 07/01/22 12:31 100 07/01/22 12:00 98 07/01/22 11:43 95 07/01/22 11:20 95 Intake and Output 07/01/22 07/02/22 07/02/22 22:59 06:59 14:59 Intake Total 222 118 Balance 222 118 Intake: Oral 222 118 Other: Voiding Method Toilet # Voids 2 1 GENERAL: The patient is lying in bed and is not in acute distress. CHEST: The heart rate is regular rate rhythm. No murmurs to auscultation. LUNG: Clear to auscultation bilaterally no wheezing noted throughout. Not labored breathing. ABDOMEN/GI: Bowel sounds present in all 4 quadrants. No tenderness to palpation throughout. NEUROLOGICAL: Higher mental function: The patient is awake, alert, oriented to self, place and time. Patient is following commands. No aphasia and no neglect. Cranial nerves: The pupils are round, equal and reactive to light and accommodation. Visual posadas are full to confrontation throughout. Extraocular movement is intact no nystagmus is noted. Facial sensation is normal to touch throughout. The facial strength is normal throughout. Hearing is normal bilaterally to hand rub. Tongue is midline and moved [id number] without any difficulty. No dysarthria is noted. Shoulder shrug is normal bilaterally. Motor: The strength is 5 over 5 throughout uppers while lowers since has chronic low back pain but lifting above gravity without focality.. Normal tone and bulk. No resting tremor. Cerebellum: Normal finger to nose bilaterally. Sensation: Sensation is normal to touch throughout. Reflexes (right/left): 2+ in uppers while lowers are 1+. Plantars are mute bilaterally. Results - Laboratory Findings CBC and BMP: 07/02/22 07:10 07/02/22 07:10 Abnormal Lab Findings: Abnormal Labs 07/01/22 11:33 BUN 20 H Glucose 106 H Assessment and Plan Assessment: Dizziness/lightheadedness with position (upon standing up) for the past month. Rule out orthostatic hypotension. Paresthesia that is intermittent of the left upper but notified the ED team of the left lower Chest pain ?reported history of Parkinson's and Multiple Sclerosis according to patient that was notified to her by her neurologist as outpatient (but is not on any medications for those) and clinical exam does not support Parkinson's Chronic lower back pain History of migraines History of first dose like syndrome Hypertension Plan: I ordered MRI of the brain with and without to rule out any causes for dizziness Ordered orthostatic vitals Vitamin B12, folate, TSH I ordered by the primary team is pending PT OT are consulted Cardiology is consulted Regarding her questionable diagnosis of Parkinson's of multiple sclerosis that was a given by her outpatient neurologist according to the patient all defer the management to the turn neurologist. Patient does not have any resting tremor or any clinical manifestation in my opinion the for Parkinson's disease. We'll defer the rest of the medical management to primary team The plan discussed with the patient. Consultation Time with Patient: Greater than 30
[2022-07-02] MEDS ORDERED: KETOROLAC 15 MG/ML 1 ML VIAL IVP PRN (21:16)
[2022-07-02] MEDS ORDERED: KETOROLAC 15 MG/ML 1 ML VIAL IVP STA (21:16)
--- NOTE | 2022-07-02 21:18 | P.PN ---
Subjective This is a pleasant 72 years old female with past medical history of hypertension. Patient was trying to get up this morning when she felt dizzy and lightheadedness, she felt like she is going to pass out but she did not, she took her medication and she felt better so she wants to [facility] clinic and that she felt the same and to check her blood pressure systolic was 198 as per patient. Also patient feels a lot some thin sitting on her chest about 10/10 when she came to emergency room with little dyspnea or get into the back States that she supposed to follow-up with her roasterman on 07/23 for stress test and 08/05. Echocardiogram. Her roasterman is Dr. Calvin Also she states that's her PCP referred her to neurologist cole Terrazas to ru le out MS and she's having tremor, weakness or numbness in her lower extremity and have history of sciatica, she says she had MRI, EEG and test for her lites as an outpatient. She has some nausea and denies other GI symptoms with vomiting. No diarrhea. Denies any urological symptoms, no urgency or change in frequency No recent weakness or numbness. But she has worsening symptoms as above. Vitas looks stable and patient is afebrile She had unremarkable labs including CBC, INR, BMP, liver enzymes and troponin. Chest x-ray: Chronic changes with no acute process, cardiomegaly. Patient started on aspirin 325 mg and normal saline 07/02/2022 Patient is still complaining of from dizziness and chest pain Still complaining of from bilateral leg weakness and numbness which are chronic Neurology evaluated the patient and recommended MRI of the brain which is pending, B12 is pending as well. Valdovinos to 7. Public Health Specialist evaluated the patient and recommended sutures test and echocardiogram which are spent Objective - Vital Signs Vital signs: Vital Signs Temp 98.3 F 07/02/22 07:20 Pulse 62 07/02/22 07:20 Resp 16 07/02/22 08:34 BP 149/74 07/02/22 11:42 Pulse Ox 98 07/02/22 12:40 FiO2 Intake & Output 07/01/22 07/02/22 07/02/22 18:59 06:59 18:59 Intake Total 222 118 Balance 222 118 Weight 111.13 kg Intake: Oral 222 118 Other: Voiding Method Toilet # Voids 1 - Exam GENERAL: The patient is alert and oriented x3, not in any acute distress. Well developed, well nourished. HEENT: Pupils are round and equally reacting to light. EOMI. No scleral icterus. No conjunctival pallor. Normocephalic, atraumatic. No pharyngeal erythema. No thyromegaly. CARDIOVASCULAR: S1 and S2 present. No murmurs, rubs, or gallops. PULMONARY: Chest is clear to auscultation, no wheezing or crackles. ABDOMEN: Soft, nontender, nondistended, normoactive bowel sounds. No palpable organomegaly. MUSCULOSKELETAL: No joint swelling or deformity. EXTREMITIES: No cyanosis, clubbing, or pedal edema. NEUROLOGICAL: Gross neurological examination did not reveal any focal deficits. SKIN: No rashes. no petechiae. - Labs CBC & Chem 7: 07/02/22 07:10 07/02/22 07:10 Assessment and Plan Assessment: Chest pain with dizziness, rule out cardiac causes Gradually progressive weakness and numbness in her lower extremity over months. Hypertension Hypothyroidism Depression Plan: continue with aspirin Cardiology consult Neurology consult, check B12/Valdovinos Follow-up MRI of the brain Follow-up echocardiogram and stress test Labs and medication were reviewed. Continue same treatment. Continue with symptomatic treatment. Resume home medication. Monitor labs and vitals. DVT and GI prophylaxis. Further recommendations as per clinical course of the patient DVT prophylaxis: Subcutaneous heparin GI Prophylaxis: Pepcid PT/OT: Pending Prognosis is guarded
[2022-07-02 21:22] LABS: Chol/HDL Ratio 5.11 Ratio; LDL Cholesterol,Calculated 173.1 mg/dL (0.0-131.0); VLDL Calculation 19.86 mg/dL (5.00-40.00)
[2022-07-03] MEDS: LEVOTHYROXINE 50 MCG TAB PO SCH (06:43)
[2022-07-03 08:06] VITALS: RESP 16
[2022-07-03] MEDS: VERAPAMIL SR 180 MG TABLET.ER PO SCH (08:48)
[2022-07-03] MEDS: LOSARTAN-HCTZ 50-12.5 MG 1 EACH TAB PO SCH (08:48)
[2022-07-03] MEDS: CYANOCOBALAMIN 500 MCG TAB PO SCH (08:52)
[2022-07-03] MEDS: ASPIRIN 81 MG PO SCH (08:53)
[2022-07-03] MEDS: CHOLECALCIFEROL 25 MCG (1000 IU) TABLET PO SCH (08:53)
[2022-07-03] MEDS: GABAPENTIN 300 MG CAP PO SCH ×2 (08:53→17:51)
[2022-07-03] MEDS: FAMOTIDINE 20 MG/2 ML VIAL IV SCH (08:53)
[2022-07-03] MEDS: CITALOPRAM HYDROBROMIDE 20 MG TAB PO SCH (08:53)
[2022-07-03] MEDS: ASCORBIC ACID 500 MG TAB PO SCH (08:53)
--- NOTE | 2022-07-03 09:29 | P.PN ---
Subjective Progress Note Date: 07/03/22 HISTORY OF PRESENT ILLNESS: This is a 72-year-old female with a past medical history significant for mild nonobstructive coronary artery disease, hypertension, anxiety, and bipolar d isorder. Patient follows in the office with Dr. Calvin. We have been asked to see the patient in consultation for chest pain. Patient examined at the bedside. Patient states yesterday morning she woke up from sleep and sat on the side of the bed as she usually does. She states as soon as she stood up she began to feel dizzy and lightheaded. She also reports feeling clammy. She states that she stood there for a minute and then started to feel better so she finished getting ready for the morning. She states that she went to [facility] yesterday for an appointment and was found to have uncontrolled blood pressure. Patient's blood pressure was found to be elevated with a systolic of 198. EMS was called. The patient states as soon as EMS arrived she began having pain in her chest. She states the pain was in the middle of her chest and went into her back. She also reports feeling short of breath. She states that she did not receive aspirin or nitro in route to the hospital. She does state that she received aspirin in the emergency room. The patient reports her pain has been constant since yesterday and is rating it a 10 out of 10 this morning. She states the pain is worse with deep inspiration. She also reports the pain is worse if she presses on her chest. She states she has not had pain like this in the past. * EKG reveals sinus mechanism with no signs of acute ischemia * Chest xray chronic changes and cardiomegaly without acute pulmonary process * Laboratory data: WBC 6.3. Hemoglobin 12.0. Platelet count 202. Sodium 139. Potassium 3.8. BUN 20. Creatinine 0.66. Troponin negative 3. * Current home cardiac medications include losartan-hydrochlorothiazide 100-25mg daily, verapamil 180 mg daily, aspirin 81 mg daily * Most recent echocardiogram obtained in February 2019 revealed ejection fraction 55%, mild aortic regurgitation, mild mitral regurgitation, mild tricu spid regurgitation * Cardiac catheterization history: November 2017 revealed mild coronary artery disease in the form of irregular ectatic plaque in the proximal left anterior descending artery. False-positive stress test. Medical management was recommended. 07/03/2022 Patient examined this morning at the bedside. Patient denies any further episodes of chest pain or pressure. She currently denies shortness of breath. She is scheduled for Lexiscan stress test today. PHYSICAL EXAM: VITAL SIGNS: Reviewed. GENERAL: Well-developed in no acute distress. HEENT: Head is normocephalic. Pupils are equal, round. Sclerae anicteric. Mucous membranes of the mouth are moist. Neck supple. No JVD or thyromegaly LUNGS: Respirations even and unlabored. Lungs essentially clear to auscultation bilaterally. HEART: Regular rate and rhythm. S1 and S2 heard. ABDOMEN: Soft. Nondistended. Nontender. EXTREMITIES: Normal range of motion. No clubbing or cyanosis. Peripheral pulses intact. No lower extremity edema NEUROLOGIC: Awake and alert. Oriented x 3. ASSESSMENT: Chest pain, troponins negative 3 Hypertension, uncontrolled on admission, resolved Mild nonobstructive coronary artery disease, per cardiac catheterization in November 2017 Anxiety Depression Weakness in her lower extremities, being worked up outpatient by neurologist PLAN: Continue current cardiac medications 2-D echo ordered. Await results Patient to undergo Lexiscan stress test today If negative, she may be discharged home from a cardiac perspective Further recommendations pending patient course Nurse practitioner note has been reviewed by physician. Signing provider agrees with the documented findings, assessment, and plan of care. Objective - Vital Signs Vital signs: Vital Signs Temp 98.0 F 07/03/22 07:35 Pulse 79 07/03/22 07:35 Resp 16 07/03/22 07:35 BP 153/78 07/03/22 07:35 Pulse Ox 95 07/03/22 07:35 FiO2 Intake & Output 07/02/22 07/03/22 07/03/22 18:59 06:59 18:59 Intake Total 340 Balance 340 Intake: Oral 340 Other: Voiding Method Toilet # Voids 1 - Labs CBC & Chem 7: 07/02/22 07:10 07/02/22 07:10 Labs: Abnormal Lab Results - Last 24 Hours (Table) 07/02/22 Range/Units 07:10 Cholesterol 240.00 H (0.00-200.00) mg/dL LDL Cholesterol, Calc 173.1 H (0.0-131.0) mg/dL
--- NOTE | 2022-07-03 10:42 | CA ---
Transthoracic Echo Report Name: Karyn Lucia Age: 72 Gender: F : 1950 Exam Date: 07/02/2022 09:51 Exam Location: [facility] Ht (in): 66 Wt (lb): 245 Ordering Physician: Kathy Vieira Attending/Referring Phys: [id number], Dariel Offal Worker Ingrid Pate RDCS Procedure CPT: Indications: LV function, CP Cardiac Hx: Technical Quality: Technically difficult study Contrast 1: Lumason Total Dose (mL): 4 Contrast 2: Total Dose (mL): MEASUREMENTS (Male / Female) Normal Values 2D ECHO LV Diastolic Diameter PLAX 4.6 cm 4.2 - 5.9 / 3.9 - 5.3 cm LV Systolic Diameter PLAX 3.0 cm IVS Diastolic Thickness 1.5 cm 0.6 - 1.0 / 0.6 - 0.9 cm LVPW Diastolic Thickness 1.4 cm 0.6 - 1.0 / 0.6 - 0.9 cm LV Relative Wall Thickness 0.6 RV Internal Dim ED PLAX 3.6 cm LA Volume 77.1 cm??? 18 - 58 / 22 - 52 cm??? M-MODE Aortic Root Diameter MM 2.8 cm LA Systolic Diameter MM 4.0 cm LA Ao Ratio MM 1.4 AV Cusp Separation MM 1.9 cm DOPPLER TR Peak Velocity 264.9 cm/s TR Peak Gradient 28.1 mmHg Right Ventricular Systolic Press 32.0 mmHg FINDINGS Left Ventricle Moderately increased left ventricular wall thickness. Normal left ventricular systolic function with no obvious regional wall motion abnormalities. Left ventricular ejection fraction is estimated at 55 %. Right Ventricle Mild right ventricular dilatation. Right ventricular systolic pressure within normal limits. Right Atrium Right atrium not well visualized. Left Atrium Severely increased left atrial volume. Mildly increased left atrial area. Mitral Valve Mitral valve not well visualized. No mitral stenosis. No mitral regurgitation. Aortic Valve Aortic valve not well visualized. No aortic valve stenosis or regurgitation. Tricuspid Valve Structurally normal tricuspid valve. Mild tricuspid regurgitation. Pulmonic Valve Structurally normal pulmonic valve. Trace pulmonic regurgitation. Pericardium No pericardial effusion. Aorta Normal size aortic root and proximal ascending aorta. CONCLUSIONS Technically difficult study for interpretation Normal LV systolic function. Mild concentric LVH Previewed by: Dr. Les Cardoza MD (Electronically Signed) Final Date: 03 July 2022 10:41
[2022-07-03] MEDS: HEPARIN SODIUM,PORCINE/PF 5,000 UNIT/0.5 ML SYRINGE SQ SCH (11:40)
--- NOTE | 2022-07-03 11:51 | MR ---
EXAMINATION TYPE: MR brain wo/w con DATE OF EXAM: 07/03/2022 COMPARISON: NONE HISTORY: Dizziness, left sided numbness. TECHNIQUE: Multiplanar, multisequence images of the brain and brainstem is performed without and with IV contras t, utilizing 11 mL intravenous Gadavist . FINDINGS: Diffusion weighted images demonstrate no evidence of a recent infarct or other diffusion ab normality. Mild sulcal prominence greatest over the bilateral frontal lobes. No hydrocephalus. Scatte red foci of T2 hyperintensity throughout the superficial, deep, and periventricular white matter. Les ions somewhat confluent appearance at the periventricular levels. Midline structures demonstrate normal morphology. The craniocervical junction appears within normal limits. Post contrast images demonstrate no abnormal enhancement. The dural venous sinuses appear pa tent. The visualized sinuses are clear and the globes are intact. Increased fluid signal left and to lesser degree right mastoid air cells. Nasal septum deviated to right of midline. IMPRESSION: 1. No MRI evidence for a recent infarct. 2. Mild diffuse age-related cerebral atrophy and moderate to borderline advanced nonspecific white ma tter changes favor product of chronic small vessel ischemic change in patient of this age. No abnorma l enhancement is seen. 3. Increased fluid signal left greater than right mastoid air cells could be products of acute mastoi ditis, correlate clinically and with point tenderness at both levels.
--- NOTE | 2022-07-03 15:17 | NM ---
EXAMINATION TYPE: NM stress lexiscan cardiolite DATE OF EXAM: 07/03/2022 COMPARISON: NONE CLINICAL INDICATION: Female, 72 years old with history of CP; TECHNIQUE: After the intravenous administration of 10.4 mCi Tc 99m Sestamibi - Cardiolite resting SP ECT images acquired 45 minutes post injection. The patient received 0.4mg Lexiscan, 25.1 mCi Tc 99m Sestamibi - Stress images obtained [address] injection FINDINGS: Review of stress and rest SPECT images demonstrates no distinct perfusion abnormality. Gated analysi s shows normal wall motion with an estimated left ventricular ejection fraction of 65 %. IMPRESSION: No scintigraphic evidence for reversible ischemia.
[2022-07-03 15:58] VITALS: BP 151/82; PULSE 67; TEMP 98.1
--- NOTE | 2022-07-03 16:10 | P.PN ---
Subjective Progress Note Date: 07/03/22 The patient is seen in denies of any further dizziness lightheadedness or any focal weakness. She feels she is back to baseline. Objective - Vital Signs Vital signs: Vital Signs Temp 98.1 F 07/03/22 15:00 Pulse 67 07/03/22 15:00 Resp 16 07/03/22 15:00 BP 151/82 07/03/22 15:00 Pulse Ox 100 07/03/22 15:00 FiO2 Intake & Output 07/02/22 07/03/22 07/03/22 18:59 06:59 18:59 Intake Total 340 240 Balance 340 240 Intake: Oral 340 240 Other: Voiding Method Toilet # Voids 1 3 - Exam GENERAL: The patient is lying in bed and is not in acute distress. NEUROLOGICAL: Higher mental function: The patient is awake, alert, oriented to self, place and time. Patient is following commands. No aphasia and no neglect. Cranial nerves: The pupils are round, equal and reactive to light and accommodation. Visual posadas are full to confrontation throughout. Extraocular movement is intact no nystagmus is noted. Facial sensation is normal to touch throughout. The facial strength is normal throughout. Hearing is normal bilaterally to hand rub. Tongue is midline and moved [id number] without any difficulty. No dysarthria is noted. Shoulder shrug is normal bilaterally. Motor: The strength is 5 over 5 throughout uppers while lowers since has chronic low back pain but lifting above gravity without focality.. Normal tone and bulk. No resting tremor. Cerebellum: Normal finger to nose bilaterally. Sensation: Sensation is normal to touch throughout. Reflexes (right/left): 2+ in uppers while lowers are 1+. Plantars are mute bilaterally. Some of the workup during his hospital visit consisted of: Vital B12, TSH and folate are within normal limits. CBC with differential and chemistry panel seems unremarkable. MRI the brain is reported as no MRI evidence for recent infarct. Mild diffuse age-related cerebral atrophy and moderate to poor light advanced nonspecific white matter changes favor product of chronic small vessel ischemic change in the patient of this age. No abnormal enhancement is seen. Increased fluid signal left greater than the right mastoid air cell. That B product of acute mastoiditis, correlate clinically and the point tenderness at both levels. - Labs CBC & Chem 7: 07/02/22 07:10 07/02/22 07:10 Labs: Abnormal Lab Results - Last 24 Hours (Table) 07/02/22 Range/Units 07:10 Cholesterol 240.00 H (0.00-200.00) mg/dL LDL Cholesterol, Calc 173.1 H (0.0-131.0) mg/dL Assessment and Plan Assessment: Dizziness/lightheadedness with position (upon standing up) for the past month. Rule out orthostatic hypotension. Paresthesia that is intermittent of the left upper but notified the ED team of the left lower Chest pain ?reported history of Parkinson's and Multiple Sclerosis according to patient that was notified to her by her neurologist as outpatient (but is not on any medications for those) and clinical exam does not support Parkinson's Chronic lower back pain History of migraines History of first dose like syndrome Hypertension Plan: MR the brain with and without is negative for acute stroke or any brain enhancement. Possible mastoiditis. We'll defer that management to the primary team. Orthostatic vitals is negative. PT OT are consulted Cardiology is consulted Regarding her questionable diagnosis of Parkinson's of multiple sclerosis that was a given by her outpatient neurologist according to the patient all defer the management to the turn neurologist. Patient does not have any resting tremor or any clinical manifestation in my opinion the for Parkinson's disease. We'll defer the rest of the medical management to primary team The plan discussed with the patient and her nurse. Otherwise no additional workup is needed from neurological perspective. Time with Patient: Less than 30
--- NOTE | 2022-07-03 19:10 | CA ---
Lexiscan Nuclear Stress Test Report Name: Karyn Lucia Exam Date: 07/03/2022 09:32 Exam Location: [place] Stress Ht (in): 66 Wt (lb): 245 BSA: 2.18 Ordering Phys: Kathy Vieira Referring Phys: ESTEBAN, Technologist: Cortes Pastrana Age: 72 Gender: F : 1950 Procedure CPT: Indications: Reflex order-Stress test ICD-10 Codes: Patient History: CHEST PAIN, DIFFICULTY IN BREATHING, NUMBNESS IN FACE/NECK, HTN, FAMILY HX OF HEART DISEASE, PRIOR HEART CATH, COPD, ASTHMA Medications: Meds past 24 hrs: Pretest Chest Pain: STRESS TEST Lexiscan Protocol Exercise Duration (min:sec): 01:[address] Depressions (mm): Angina Score: Rose Score: Resting HR (bpm): 71 Peak HR (bpm): 110 Resting BP (mmHg): 168 / 90 Peak BP (mmHg): 192 / 77 MPHR: 150 Target HR: 128 % MPHR: 73 METS: 1.0 Total Dose: Peak Dose: Atropine: Double Product: 54370 BP Response: Stress Termination: INFUSION COMPLETE Stress Symptoms: NO SYMPTOMS Stress Summary: ECG ANALYSIS Resting ECG: Stress ECG: CONCLUSIONS Nondiagnostic electrocardiogram stress testing Dr. Les Cardoza MD (Electronically Signed) Final Date: 03 July 2022 19:09
--- NOTE | 2022-07-15 11:45 | P.DS ---
Providers Date of admission: 07/02/22 17:35 Attending physician: Tahir Le MD Consults: 07/01/22 13:00 Consult Physician Urgent Consulting Provider: Sandip Calvin Consult Reason/Comments: chest pain Do you want consulting provider notified?: Yes 07/01/22 13:26 Consult Physician Routine Consulting Provider: Domenico Loiuse Consult Reason/Comments: Dizziness, leg paresthesias Do you want consulting provider notified?: Yes Primary care physician: Lynnette Duarte Hospital Course: Diagnoses -Chest pain with dizziness, suspicious for unstable angina or vertigo however MRI of the brain and stress test came back negative and patient was cleared for discharge by [employer] and neurologist. Could be musculoskeletal chest pain -Gradually progressive weakness and numbness in her lower extremity over months. -Hypertension, uncontrolled on admission -Hypothyroidism -Depression Hospital course: This is a pleasant 72 years old female with past medical history of hypertension. Patient was trying to get up this morning when she felt dizzy and lightheadedness, she felt like she is going to pass out but she did not, she took her medication and she felt better so she wants to [facility] clinic and that she felt the same Patient evaluated by neurologist,MR the brain with and without is negative for acute stroke or any brain enhancement. Orthostatic vitals were negative. Patient was admitted for cardiac chest pain suspicious for unstable angina however stress test came back negative. Patient was cleared for discharge by [employer] On the day of discharge her blood pressure is controlled and patient denies any specific symptoms. Denies chest pain or dyspnea. No change in urine or bowel habits. No fever. Patient was cleared for discharge by [employer] and neurologist. Problems and management plan were discussed with the patient and he verbalized understanding and acceptance Patient was found stable and can be discharged home in guarded prognosis however he needs follow-up as an outpatient. Patient was instructed to follow up with PCP Dr. prince within one week and patient agrees Patient was instructed to follow up with web[employer] se[employer] Dr. Calvin in 1-[address] Montalvo in 1-2 weeks and should respond medical appointments Physical exam Gen: patient is a AAOx3, no distress CVS: S1-S2, RRR, no murmur Lungs: B/L CTA, no wheezing Abdomen: soft, no distention, no tenderness, positive bowel sounds Extremity: no leg edema or induration Time spent more than 35 minutes Patient Condition at Discharge: Fair Plan - Discharge Summary New Discharge Prescriptions: Continue Nitroglycerin Sl Tabs [Nitrostat] 0.4 mg SUBLINGUAL Q5M PRN PRN Reason: Chest Pain Aspirin [Adult Low Dose Aspirin EC] 81 mg PO DAILY Gabapentin [Neurontin] 300 mg PO TID rOPINIRole HCL [Requip] 0.25 mg PO BID Losartan/Hydrochlorothiazide [Losartan-Hctz 100-25 mg Tab] 1 tab PO DAILY Levothyroxine Sodium [Synthroid] 50 mcg PO DAILY Citalopram Hydrobromide [CeleXA] 20 mg PO DAILY Cholecalciferol [Vitamin D3 (25 Mcg = 1000 Iu)] 25 mcg PO DAILY Verapamil HCl [Verapamil ER] 180 mg PO DAILY Butalb/APAP/Caff 50-325-40Mg [Fioricet 50-325-40] 1 tab PO BID PRN PRN Reason: Migraine Headache Ergocalciferol (Vitamin D2) [Drisdol (50,000 Iu)] 1,250 mcg PO MO Cyanocobalamin (Vitamin B-12) [Vitamin B-12] 3,000 mcg PO DAILY Ascorbic Acid [Vitamin C] 1,000 mg PO DAILY ALPRAZolam [Xanax] 0.5 mg PO DAILY PRN PRN Reason: Anxiety Discontinued Naproxen 500 mg PO BID Discharge Medication List Aspirin [Adult Low Dose Aspirin EC] 81 mg PO DAILY 11/22/17 [History] Nitroglycerin Sl Tabs [Nitrostat] 0.4 mg SUBLINGUAL Q5M PRN 11/22/17 [History] Gabapentin [Neurontin] 300 mg PO TID 06/03/20 [History] Verapamil HCl [Verapamil ER] 180 mg PO DAILY 06/03/20 [History] ALPRAZolam [Xanax] 0.5 mg PO DAILY PRN 07/01/22 [History] Ascorbic Acid [Vitamin C] 1,000 mg PO DAILY 07/01/22 [History] Butalb/APAP/Caff 50-325-40Mg [Fioricet 50-325-40] 1 tab PO BID PRN 07/01/22 [History] Cholecalciferol [Vitamin D3 (25 Mcg = 1000 Iu)] 25 mcg PO DAILY 07/01/22 [History] Citalopram Hydrobromide [CeleXA] 20 mg PO DAILY 07/01/22 [History] Cyanocobalamin (Vitamin B-12) [Vitamin B-12] 3,000 mcg PO DAILY 07/01/22 [History] Ergocalciferol (Vitamin D2) [Drisdol (50,000 Iu)] 1,250 mcg PO MO 07/01/22 [History] Levothyroxine Sodium [Synthroid] 50 mcg PO DAILY 07/01/22 [History] Losartan/Hydrochlorothiazide [Losartan-Hctz 100-25 mg Tab] 1 tab PO DAILY [History] rOPINIRole HCL [Requip] 0.25 mg PO BID 07/01/22 [History] Follow up Appointment(s)/Referral(s): Lynnette Duarte MD [Primary Care Provider] - 1-2 days Lesley Montalvo MD [Medical Doctor] - 2 Weeks Sandip Calvin MD [STAFF PHYSICIAN] - 2 Weeks Patient Instructions/Handouts: Chest Pain (DC), Dizziness (GEN) Activity/Diet/Wound Care/Special Instructions: heart healthy diet activity is restricted till you see your doctor Discharge Disposition: HOME SELF-CARE
== END 2022-07-03 18:48 | disposition home or self-care (01) ==
LOC: EC 11:18 → 6NMEDSUR 13:36 → INTOOBSV 07-02 17:35 → OBSVTOIN 07-02 17:35 → UNDODISIN 07-03 18:48
PROVIDERS: ADMIT Internal Medicine; ATTEND Internal Medicine
DX: R07.9 Chest pain, unspecified (principal); R42 Dizziness and giddiness; R20.2 Paresthesia of skin; R53.1 Weakness; I25.10 Atherosclerotic heart disease of native coronary artery without angina pectoris; J45.909 Unspecified asthma, uncomplicated; I10 Essential (primary) hypertension; E03.9 Hypothyroidism, unspecified; G43.909 Migraine, unspecified, not intractable, without status migrainosus; F41.9 Anxiety disorder, unspecified; F31.9 Bipolar disorder, unspecified; G35 Multiple sclerosis; G20 Parkinson's disease; G25.81 Restless legs syndrome; G89.29 Other chronic pain; M54.50 Low back pain, unspecified; Z87.891 Personal history of nicotine dependence; Z79.82 Long term (current) use of aspirin; Z79.890 Hormone replacement therapy; Z79.899 Other long term (current) drug therapy; Z88.5 Allergy status to narcotic agent
CPT/HCPCS: 96372 ×3; 96374; 96375; 96376 ×2; 96361; 99285; 36415; 94760; 93005; 93017; 97162; 97166; 80061; 80053; 80048; 84443; 82607; 82746; 83735; 84484; 85025 ×2; 85610; 85730; 71046; 93970; 70553; 78452; G0378 ×3; C8929; A9500; J2785; J1885; Q9950; J1644 ×3; A9585; 93306; 96360

== ENCOUNTER → 2023-04-12 | Outpatient (CLI) | payer MEDICARE, OTHER ==
--- NOTE | 2023-04-12 10:31 | BD ---
EXAMINATION TYPE: Axial Bone Density DATE OF EXAM: 04/12/2023 CLINICAL HISTORY: 73 years old Female. ICD-10 CODE: Z13.820 OSTEOPOROSIS, Z78.0 MENOPAUSAL Height: 65" Weight: 239.2lbs FRAX RISK QUESTIONS: Alcohol (3 or more units per day): No Family History (Parent hip fracture): No Glucocorticoids (More than 3mos): No (Ex: prednisone, prednisolone, methylprednisolone, dexamethasone, and hydrocortisone). History of Fracture in Adulthood: No Secondary Osteoporosis: 1. Type 1 Diabetes: No 2. Hyperthyroidism: No 3. Menopause before 45: Unknown 4. Malnutrition: No 5. Chronic liver disease: Yes Rheumatoid Arthritis: Yes Current Tobacco Use: No RISK FACTORS HISTORY OF: Hip Fracture (Right/Left): No Spine Fracture: No History of Wrist Fracture: No Surgery to Spine/Hip(right/left)/Wrist (right/left): No MEDICATIONS: Thyroid Medications: Yes Which medication: Levothyroxine How Long: For a while Osteoporosis Medications: No EXAM MEASUREMENTS: Bone mineral densitometry was performed using the [employer] System. Bone mineral density as measured about the Lumbar spine is: ----- L1-L4(G/cm2): 10.21 T Score Values are as follows: ----- L1: -1.4 ----- L2: -2.0 ----- L3: -2.1 ----- L4: -0.1 ----- L1-L4: -1.3 Z Score Values are as follows: ----- L1: -0.9 ----- L2: -1.4 ----- L3: -1.5 ----- L4: 0.4 ----- L1-L4: -0.8 Baseline @MPH Bone mineral density about the R hip (g/cm2): 0.890 Bone mineral density about the L hip (g/cm2): 0.907 T Score values are as follows: -----R Neck: -1.5 -----L Neck: -1.8 -----R Total: -0.9 -----L Total: -0.8 Z Score values are as follows: -----R Neck: -0.5 -----L Neck: -0.8 -----R Total: -0.2 -----L Total: -0.1 Baseline @MPH FRAX%s: The graph provided illustrates a 12.9% chance for a major osteoporotic fx and a 2.4% chance f or the hips probability for fx in 10 years time. IMPRESSION: Osteopenia (T Score between -2.5 and -1). There is slightly increased risk of fracture and the patient may be considered for treatment. Re-Screen 2-5 years. NOTE: T-SCORE=SD OF THE YOUNG ADULT MEAN.
--- NOTE | 2023-04-12 11:21 | FL ---
EXAMINATION TYPE: FL barium swallow DATE OF EXAM: 04/12/2023 10:42 AM COMPARISON: None CLINICAL INDICATION:Female, 73 years old with history of E04.1 THYROID NODULE; [facility], TECHNIQUE: The procedure was explained and patient history elicited. All patient questions were ans wered prior to start of procedure. Multiple spot fluoroscopic images of the esophagus were obtained a fter the oral ingestion of effervescent crystals and liquid barium as the contrast agent. Fluoroscopic time: 23 sec Fluoroscopic images: 0 Radiographs taken: 62 DAP: 670 cGycm2 FINDINGS: The esophagus demonstrates normal primary and secondary peristalsis. The esophageal mucosa is smooth without evidence of focal stricture, ulceration, or abnormal outpouching. There was gastroesophageal reflux disease was identified when the patient was standing. Tertiary contractions are present throu ghout the esophagus. IMPRESSION: 1. Esophageal dysmotility. No evidence for mass. 2. Mild gastroesophageal reflux
== END | disposition home or self-care (01) ==
LOC: RADUSWWP 09:34
PROVIDERS: ATTEND Family Medicine
DX: Z13.820 Encounter for screening for osteoporosis (principal); M85.89 Other specified disorders of bone density and structure, multiple sites; K21.9 Gastro-esophageal reflux disease without esophagitis; K22.4 Dyskinesia of esophagus; E04.1 Nontoxic single thyroid nodule; Z78.0 Asymptomatic menopausal state
CPT/HCPCS: 74220; 77080

== ENCOUNTER → 2023-05-06 | Outpatient (CLI) | payer MEDICARE, OTHER ==
--- NOTE | 2023-05-06 21:28 | US ---
EXAMINATION TYPE: US thyroid st tissue head/neck DATE OF EXAM: 05/06/2023 COMPARISON: 04/20/2022 CLINICAL INDICATION: Female, 73 years old with history of E04.1NONTOXIC SINGLE THYROID NODULE; thyroi d nodule GLAND SIZE: Right Lobe: 4.2 x 2.1 x 2.3 cm Overall Parenchyma: heterogenous Left Lobe: 5.1 x 2.4 x 2.5 cm Overall Parenchyma: heterogenous Isthmus Thickness: 0.8 cm NODULES RIGHT: # of nodules measured on right: 0. The lobe is very heterogeneous and lobulated. LEFT: The lobe is very heterogeneous and lobulated. The degree of heterogeneity makes it difficult to identify discrete nodules. # of nodules measured on left: 1 1. 0.9 X 0.9 x 0.8 cm, lower , benign cyst. Prior size: not visualized on prior exam ISTHMUS: # of nodules measured in the isthmus: 1 1. 1.2 X 1.2 x 1.2 cm solid or almost completely solid, hyperechoic TR3 nodule, which is wider than tall, with smooth margins, without echogenic foci. Prior size: 1.2 x 1.3 x 1.2 cm Bilateral neck scanned, no evidence of lymphadenopathy. IMPRESSION: Borderline thyromegaly with markedly heterogeneous and lobulated thyroid parenchyma suggesting goiter . The degree of heterogeneity makes it difficult to identify discrete nodules. A 1.2 cm solid TR3 nod ule in the thyroid isthmus remains unchanged. 2017 ACR TI-RADS LEVEL: TR-RADS 3 - Mildly Suspicious: Follow if > 1.5 cm, FNA if > 2.5 cm *Highest TI-RADS level nodule reported
--- NOTE | 2023-05-07 07:38 | MM ---
Reason for Exam: Screening (asymptomatic). Last screening mammogram was performed 12 month(s) ago. Patient History: Menarche at age 19. First Full-Term at age 21. Left ovary removed at age 58. Right ovary removed at age 58. Hysterectomy at age 58. Postmenopausal. Risk Values: [place] 5 year model risk: 1.1%. NCI Lifetime model risk: 3.2%. Prior Study Comparison: 06/17/2016 Bilateral MG screening mammo w CAD - 2, [facility]. 09/03/2017 Bilateral MG screening mammo w CAD - 2, [facility]. 04/20/2022 Bilateral MG 3D screening mammo w/cad, [facility]. Tissue Density: There are scattered fibroglandular densities. Findings: Analyzed By CAD. The pattern is symmetrical. There is a new 0.9 cm density with slightly irregular margins outer right craniocaudal view 12 cm from the nipple 78-9 o'clock posterior position. This is not early identified on the mediolateral oblique views. Additional workup is recommended. No suspicious groups of microcalcifications, spiculated or lobular masses, architectural distortion or other secondary signs of malignancy are mammographically apparent. Overall Assessment: Incomplete: need additional imaging evaluation, BI-RAD 0 Management: Diagnostic Mammogram of the right breast. Diagnostic Breast Ultrasound of the right breast. A negative mammogram report should not preclude additional follow up of suspicious palpable abnormalities. Patient should continue monthly self breast exam. A clinical breast exam by your physician is recommended on an annual basis and results should be correlated with mammographic findings. Electronically signed and approved by: Phill Echavarria D.O. Radiologis
== END | disposition home or self-care (01) ==
LOC: RADUSWWP 14:46
PROVIDERS: ATTEND Family Medicine
DX: Z12.31 Encounter for screening mammogram for malignant neoplasm of breast (principal); E04.1 Nontoxic single thyroid nodule; R22.0 Localized swelling, mass and lump, head
CPT/HCPCS: 76536; 77063; 77067

== ENCOUNTER → 2023-09-14 | Outpatient (CLI) | payer MEDICARE, OTHER | LOC: CPPFTMAIN 15:24 | PROVIDERS: ATTEND Family Medicine | DX: J45.20 Mild intermittent asthma, uncomplicated (principal); Z88.5 Allergy status to narcotic agent | CPT/HCPCS: 94060; 94726; 94729 ==